=== PATIENT | male | born 1955 | race Caucasian/White ===

== ENCOUNTER 2024-06-08 10:11 | Outpatient (CLI) | payer BC, MEDICARE, SELFPAY ==
--- OUTSIDE RECORDS SUMMARY | 2024-06-08 11:36 | XMS_ITS | Continuity of Care Document ---
Author Organization [facility] Address [address] [place] [address] [place] [address] Phone Care Team Providers Care Echo Vasc Tech Name Role Phone Hieu Braden MD Unavailable Unavailable Advance Directives Directive Yes / No Effective Date File Name No Information Encounters Encounter Description Practice Location Reason(s) For Visit Diagnoses Date Provider Providers Copied on Encounter [facility], [address], [place], [place], [id number], [place] tel:[phone] [place] Professional No Information [address]. [address] [facility], [facility], [place], [place], [id number], [place]. tel:[phone] Family History Family Member Type Diagnosis Age At Onset No Information Payers Payer name Insurance type Covered libertarian ID Authoriza tion(s) No Information Social History Type Description Quantity Date Captured Comments Sex Male Smoking Status No Information Chief Complaint And Reason For Visit No Information Reason For Referral Reason For Referral No Information History Of Present Illness Encounter Date Complaint History Of Prese nt Illness No Information Functional Status Date Functional Assessmen t No Information Instructions Date Instruction Additional Infor mation No Information Assessments Type Assessment Date No Information Patient Care Teams Name Effective Dates (start - stop) Status Members No Information
--- OUTSIDE RECORDS SUMMARY | 2024-06-08 11:36 | XMS_ITS | Clinical Summary ---
Author Organization [facility] Address [address] [place] [address] Phone Care Team Providers Care Financial Reporting Accountant Name Role Phone SALMA ESCOBAR MD Primary Care Provider [phone] Reason for Visit and Chief Complaint ECHOCARDIOGRAM Problems Includes: Problems addressed during this encounter and other active Problems All Visits Onset Date Resolved Date Provider Condition S tatus Asthma 12/20/2022 RAJANI Stratton PA-C Active Last Documented On 12/20/2022 8:26AM ; [facility] Note: Sees allergy/immunology in [place] Bursitis Olecranon Left 05/30/2022 SALMA ESCOBAR MD Active Last Documented On 05/30/2022 8:55AM ; [facility] Note: Unchanged Alcohol Dependence in Remission 01/09/2021 LUIS MANUEL ODELL DO Active Last Documented On 9:01AM ; [facility] Allergic Rhinitis 01/09/2021 LUIS MANUEL ODELL DO Active Last Documented On 9:01AM ; [facility] Gerd 10/07/2020 SALMA ESCOBAR MD Act bruno Last Documented On 9:20AM ; [facility] Note: Unchanged Neuropathy 10/07/2020 SALMA ESCOBAR MD Act bruno Last Documented On 9:20AM ; [facility] Note: Unchanged Plan of Treatment No Plan of Treatment Recorded Assessments Includes: Assessments from this encounter No Assessments Recorded Medical Equipment - Implanted Devices Includes: Current Devices No Medical Equipment Recorded Medications Includes: Medications discussed during this encounter and other current Medications Current Medications (continue as prescribed) Cyanocobalamin 1000 MCG/ML I njection Solution 06/26/2023 Provider: SALMA Mi Diagnosis: ONE B12 INJECTION WEEKLY FOR 3 MONTHS Last Documented On 06/26/2023 2:47PM By KAVIN POWELL ; [facility] BD Luer-Porsha Syringe 25G X 5/ 8 3 ML Miscellaneous 06/26/2023 Provider: SALMA Mi Diagnosis: USE ONE SYRINGE WEEKLY FOR B12 INJ Last Documented On 06/26/2023 2:47PM By KAVIN POWELL ; [facility] QUEtiapine Fumarate 200 MG Oral Tablet 06/12/2023 Pr ovider: SALMA ESCOBAR MD Diagnosis: TAKE 1/2 TO 1 TABLET BY MOUTH EVERY DAY AT [place] Last Documented On 4 6:07PM By SALMA ESCOBAR MD ; [facility] DULoxetine HCl 60 MG Oral Ca psule Delayed Release Particles 06/12/2023 Provider: SALMA Mi Diagnosis: TAKE 1 CAPSULE BY MOUTH TWICE A DAY Last Documented On 4 6:07PM By SALMA ESCOBAR MD ; [facility] Pregabalin 100 MG Oral Capsule 06/11/2023 Provider: SALMA ESCOBAR MD Diagnosis: TAKE 1 CAPSULE BY MOUTH TWICE A DAY Last Documented On 10:52PM By SALMA ESCOBAR MD ; [facility] Omeprazole 40 MG Oral Capsul e Delayed Release 05/16/2023 Provider: CYRUS STARKEY SUPERINTENDENT QUARRY- FPA, DISTRICT MANAGER PRIMARY CARE SALES-BC Diagnosis: TAKE 1 CAPSULE BY MOUTH EVERY DAY Last Documented On 05/16/2023 1:48PM By Carol POWELL ; [facility] Trelegy Ellipta 100-62.5-25 MCG/ACT Inhalation Aerosol Powder Breath Activated 12/19/2022 Provider: Diagnosis: From allergy, [facility] in [place] Last Documented On 12/19/2022 3:51PM By KAVIN POWELL ; [facility] Albuterol Sulfate HFA 108 (9 0 Base) MCG/ACT Inhalation Aerosol Solution 05/28/2022 Provider: Diagnosis: Last Documented On 05/30/2022 8:26AM By Carol POWELL ; [facility] Fluticasone Propionate 50 MC G/ACT Nasal Suspension 02/19/2021 Provider: SALMA Mi Diagnosis: USE 2 SPRAYS IN EACH NOSTRIL EVERY DAY Last Documented On 02/19/2021 6:22PM By Carol POWELL ; [facility] Medications Administered Includes: Administered Medications from this encounter No Administered Medications Recorded Results Includes: Results discussed during this encounter No Results Recorded For Specified Dates History of Present Illness Includes: History of Present Illness from this encounter No History of Present Illness Recorded Social History No Social History Recorded - Smoking Status Unknown Procedures and Surgical History Includes: Procedures from this encounter Procedures Code Diagnosis Performing Provider Service Location Service Date ECHOCARDIOGRAPHY -TRANSTHORAC W/ DOPPLER (Professional Comp., DISTINCT PROCEDURAL SERVICE DIFFERENT SITE) 21529 Abnormal electrocardiogram [ECG] [EKG], Shortness of breath TABBY TOUSSAINT MD [facility] OP HRT 07/18/2023 Last Documented On 4 1:08PM ; [facility] Medical History Includes: Medical History addressed during this encounter No Medical History Recorded Family History Includes: Family History addressed during this encounter No Family History Recorded Review of Systems Includes: Review of Systems from this encounter No Review of Systems Recorded Mental Status Includes: Mental Status from this encounter No Mental Status Recorded Functional Status Includes: Functional Status from this encounter No Functional Status Recorded Physical Exam Includes: Physical Exam from this encounter No Physical Exam Recorded Allergies Includes: Active Allergies No Known Allergies Encounters Encounter Provider Location Date Check-In Time Check-Out Time Diagnosis ECHOCARDIOGRAM YOUKARLA TOUSSAINT MD [facility] OP H[facility] 07/18/19 24 1:00PM 11:51AM Insurance Includes: Active Insurance Policies Plan Name Member ID Group # Subscriber Relationship Effect bruno Dates 1 - [facility] [id number] EMMA Dickson Clinical Notes Includes: Clinical Notes from this encounter No Clinical Notes Recorded
--- OUTSIDE RECORDS SUMMARY | 2024-06-08 11:36 | XMS_ITS | Clinical Summary ---
Author Organization [facility] Address [address] [place] [address] Phone Care Team Providers Care Abalone Fisherman Name Role Phone SALMA ESCOBAR MD Primary Care Provider [phone] Reason for Visit and Chief Complaint LEXISCAN CARDIOLITE Problems Includes: Problems addressed during this encounter and other active Problems All Visits Onset Date Resolved Date Provider Condition S tatus Asthma 12/20/2022 RAJANI Stratton PA-C Active Last Documented On 12/20/2022 8:26AM ; [facility] Note: Sees allergy/immunology in [place] Bursitis Olecranon Left 05/30/2022 SALMA ESCOBAR MD Active Last Documented On 05/30/2022 8:55AM ; [facility] Note: Unchanged Alcohol Dependence in Remission 01/09/2021 LUIS MANUEL ODELL DO Active Last Documented On 9:01AM ; [facility] Allergic Rhinitis 01/09/2021 LUIS MANUEL ODELL DO Active Last Documented On 9:01AM ; [facility] Gerd 10/07/2020 SALMA ESCOBAR MD Act bruno Last Documented On 9:20AM ; [facility] Note: Unchanged Neuropathy 10/07/2020 SALMA ESCOBAR MD Act bruno Last Documented On 9:20AM ; [facility] Note: Unchanged Plan of Treatment No Plan [...] On 06/26/2023 2:47PM By KAVIN POWELL ; [facility] BD Luer-Porsha Syringe 25G X 5/ 8 3 ML Miscellaneous 06/26/2023 Provider: SALMA Mi Diagnosis: USE ONE SYRINGE WEEKLY FOR B12 INJ Last Documented On 06/26/2023 2:47PM By KAVIN POWELL ; [facility] QUEtiapine Fumarate 200 MG Oral Tablet 06/12/2023 Pr ovider: SALMA ESCOBAR MD Diagnosis: TAKE 1/2 TO 1 TABLET BY MOUTH EVERY DAY AT [place] Last Documented On 4 6:07PM By SALMA ESCOBAR MD ; [facility] DULoxetine HCl 60 MG Oral Ca psule Delayed Release Particles 06/12/2023 Provider: SALMA Mi Diagnosis: TAKE 1 CAPSULE BY MOUTH TWICE A DAY Last Documented On 4 6:07PM By SALMA ESCOBAR MD ; [facility] Pregabalin 100 MG Oral Capsule 06/11/2023 Provider: SALMA ESCOBAR MD Diagnosis: TAKE 1 CAPSULE BY MOUTH TWICE A DAY Last Documented On 4 10:52PM By SALMA ESCOBAR MD ; [facility] Omeprazole 40 MG Oral Capsul e Delayed Release 05/16/2023 Provider: CYRUS STARKEY ROULETTE DEALER- FPA, COATING MIXER SUPERVISOR-BC Diagnosis: TAKE 1 CAPSULE BY MOUTH EVERY DAY Last Documented On 05/16/2023 1:48PM By Carol POWELL ; [facility] Trelegy Ellipta 100-62.5-25 MCG/ACT Inhalation Aerosol Powder Breath Activated 12/19/2022 Provider: Diagnosis: From allergy, [facility] in [place] Last Documented On 12/19/2022 3:51PM By KAVIN POWELL ; [facility] Albuterol Sulfate HFA 108 (9 0 Base) MCG/ACT Inhalation Aerosol Solution 05/28/2022 Provider: Diagnosis: Last Documented On 05/30/2022 8:26AM By Carol POWELL ; [facility] Fluticasone Propionate 50 MC G/ACT Nasal Suspension 02/19/2021 Provider: SALMA Mi Diagnosis: USE 2 SPRAYS IN EACH NOSTRIL EVERY DAY Last Documented On 02/19/2021 6:22PM By Carol POWELL ; [facility] Medications Administered Includes: Administered Medications from this [...] Diagnosis Performing Provider Service Location Service Date MYOCARDIAL PERFUSIOIN IMAGING- TOMOGRAPHIC MULT STUDIES (Professional Comp.) [address] Abnormal electrocardiogram [ECG] [EKG], Shortness of breath YOUKARLA TOUSSAINT MD [facility] OP HRT 07/18/2023 Last Documented On 4 1:08PM ; [facility] CARDIOVASCULAR STRESS [place] [id number] Abnormal electrocardiogram [ECG] [EKG], Shortness of breath YOUKARLA TOUSSAINT MD [facility] OP HRT 07/18/2023 Last Documented On 4 1:08PM ; [facility] CARDIO STRESS TEST INTERP ONLY [id number] Abnormal electrocardiogram [ECG] [EKG], Shortness of breath YOUSEKraig TOUSSAINT MD [facility] OP HRT 07/18/2023 Last Documented On 4 1:08PM ; [facility] Medical History Includes: Medical History addressed during [...] Location Date Check-In Time Check-Out Time Diagnosis LEXISCAN CARDIOLITE YOUKARLA TOUSSAINT MD [facility] OP HRT 07/18/19 24 10:49AM 1:22PM Insurance Includes: Active Insurance Policies Plan Name Member ID Group # Subscriber Relationship Effect bruno Dates 1 - [facility] [id number] EMMA ROBERT Self Clinical Notes Includes: Clinical Notes from this encounter No Clinical Notes Recorded
--- OUTSIDE RECORDS SUMMARY | 2024-06-08 11:36 | XMS_ITS | Encounter Summary ---
Author Organization [facility] Address [address] [place] [address] Care Team Providers Care Brake Lining Finisher Name Role Phone Homero Palm MD Primary Care Provider [phone] Juliet Paula MD Primary Care Provider [phone] Reason for Visit * Reason Onset Date Comments Hospital Follow Up 07/13/2020 Encounter Details Date Type Department Care Team (Late st Contact Info) Description 07/13/2020 Hospital Follow-up Call [facility] [address] [place] [address] Marina Muse, [facility] Hospital Follow Up Social History Tobacco Use Types Packs/Day Years Used Date Smoking Tobacco: Never Smokeless Tobacco: Never Alcohol Use Standard Drinks/Week Comments Yes 0 (1 standard drink = 0.6 oz pur e alcohol) 5 drinks per week Sex and Gender Information Value Date Recorded Sex Assigned at Male 04/01/2024 5:58 AM CAR RENTAL SALES ASSISTANT Legal Sex Male 11:44 AM CDT Gender Identity Not on file Sexual Orientation Not on file Occupation Industry Job Start Date Job End Date Not on file Not on file Not on file Not on file COVID-19 Exposure Response Date Recorded In the last month, have you been in contact with someone who was confirmed or suspected to have Coronavirus / COVID-19? No / Unsure 07/08/2020 11:04 AM CDT documented as of this encounter Functional Status * RETIRED Are you deaf or do you have serious difficulty hearing Answer Date of Assessment Author Status No 07/08/2020 12:45 PM CDT Acti ve * RETIRED Are you blind or do you have serious difficulty seeing, even when wearing glasses? Answer Date of Assessment Author Status No 07/08/2020 12:45 PM CDT Acti ve * Do you have serious difficulty walking or climbing stairs? Answer Date of Assessment Author Status Yes 07/08/2020 12:45 PM CDT Mikala Butcher R N Active * Do you have difficulty dressing or bathing? Answer Date of Assessment Author Status No 07/08/2020 12:45 PM CDT Mikala Butcher R N Active * Because of a physical, mental, or emotional condition, do you have difficulty doing errands alone such as visiting a doctor's office or shopping? Answer Date of Assessment Author Status No 07/08/2020 12:45 PM CDT Mikala Butcher R N Active documented as of this encounter Mental Status * Because of a physical, mental, or emotional condition, do you have serious difficulty concentrating, remembering, or making decisions? Answer Entry Date Author Status No 07/08/2020 12:45 PM CDT Mikala Buthcer R N Active documented in this encounter Plan of Treatment Not on file documented as of this encounter Visit Diagnoses Not on filedocumented in this encounter Care Teams Brake Lining Finisher Relationship Specialty Start Date End Date Homero Palm MD [address] [place] [phone] PCP - General INTERNAL MEDICINE 07/08/20 03/16/21 Juliet Paula MD [address] [place] [phone] PCP - General FAMILY PRACTICE 03/17/21 documented as of this encounter
--- OUTSIDE RECORDS SUMMARY | 2024-06-08 11:36 | XMS_ITS | Clinical Summary ---
Author Organization [facility] Address [address] [place] [address] Phone Care Team Providers Care Cardiovascular Surgeon Name Role Phone Juliet Corrales MD Primary Care Provider [phone] Allergies No known active allergies Medications naltrexone (VIVITROL) 380 MG Recon Suspension 380 mg by Intramuscular route once. EVERY 28 DAYS Active pregabalin (LYRICA) 100 MG Capsule Take 100 mg by mouth 2 times daily. Active cloNIDine (CATAPRES) 0.1 MG Tablet Take 0.1 mg by mouth nightly. Active DULoxetine (CYMBALTA) [address] Particles Take 60 mg by mouth 2 times daily. Active fluticasone (FLONASE) 50 MCG/ACT Suspension 1-2 Sprays by Nasal route daily. Use in each nostril as directed. Active ibuprofen (MOTRIN) 600 MG Tablet Take 600 mg by mouth every 8 hours as needed. Active QUEtiapine (SEROquel) 200 MG Tablet Take 200 mg by mouth nightly. Active hydrOXYzine (ATARAX) 25 MG Tablet Take 25 mg by mouth every 6 hours as needed. Active Sulfamethoxazo le-Trimethopri m (SULFAMETHOXAZ OLE-TMP DS PO) Take by mouth 2 times daily. Active cephALEXin (KEFLEX) 500 MG Capsule Take 500 mg by mouth 2 times daily. Active omeprazole (PriLOSEC) 40 MG CAPSULE DELAYED RELEASE Take by mouth every morning. Active Active Problems No known active problems Family History Medical History Relation Name Comments Cancer Father LUNG AND BRAIN Osteoarthritis Father Cancer Mother BREAST Hypertension Mother Relation Name Status Comments Father Mother Alive Social History Tobacco Use Types Packs/Day Years Used Date Smoking Tobacco: Never Smokeless Tobacco: Former Chew Quit: 02/27/1994 Sex and Gender Information Value Date Recorded Sex Assigned at Not on file Legal Sex Male 11:32 PM CDT Gender Identity Not on file Sexual Orientation Not on file Last Filed Vital Signs Vital Sign Reading Time Taken Comments Blood Pressure 133/80 04/10/2021 10:02 AM ACUTE CARE NURSE PRACTITIONER Pulse 60 04/10/2021 10:02 AM ACUTE CARE NURSE PRACTITIONER Temperature 36 C (96.8 F) 04/10/2021 10:02 AM ACUTE CARE NURSE PRACTITIONER Respiratory Rate 16 04/10/2021 10:02 AM ACUTE CARE NURSE PRACTITIONER Oxygen Saturation 93% 04/10/2021 10:02 AM ACUTE CARE NURSE PRACTITIONER Inhaled Oxygen Concentration - - Weight 98 kg (216 lb) 04/10/2021 8:35 AM ACUTE CARE NURSE PRACTITIONER Height 182.9 cm (6') 04/10/2021 8:35 AM ACUTE CARE NURSE PRACTITIONER Body Mass Index 29.29 04/10/2021 8:35 AM ACUTE CARE NURSE PRACTITIONER Plan of Treatment Health Maintenance Due Date Last Done Comments Hepatitis C Virus (HCV) Screening 1955 Colonoscopy 2002 Colorectal Cancer Screening 2002 Cologuard 08/05/2007 Immunochemical Fecal Occult Blood 08/05/2007 Pneumococcal Immunization (50+ years) (1 of 1 - PCV) 08/05/2007 Influenza Immunization (#1) 10/13/202311/12, 11/22/2020, 12/14/2019, Additional history exists SARS-COV-2 Immunization ( season) 2023 10/19/2020, 04/22/2020, 03/23/2020 Respiratory Syncytial Virus (RSV) Immunization (Adult) (1 - 1-dose 75+ series) 2032 DTaP/Tdap/Td Immunization Discontinued 10/25/2019, TdaP Immunization Completed 10/25/2019, 09/23/2009 Zoster Immunization Completed 06/29/2020, 0 Hepatitis B Immunization Aged Out No longer eligible based on patient's age to complete this topic Meningococcal Immunization (ACWY) Aged Out No longer eligible based on patient's age to complete this topic Rotavirus Immunization Aged Out No lo nger eligible based on patient's age to complete this topic Medical Devices Implanted Type Area Ems Driver Device Identifier Shelf Expiration Date Model / Serial / Lot Tecnis Simplicity Enhance Iol Delivery System Implanted:Qty: 1 on 03/06/2021 by Luis Antonio Gil MD at [facility] Right: Eye 06/11/2023 [id number] / [id number] / [id number] Tecnis Eyhance Iol With Simplicity Delivery System Implanted:Qty: 1 on 04/10/2021 by Luis Antonio Gil MD at [facility] Left: Eye 06/11/2023 [id number] / [id number] / [id number] Insurance Care Teams Cardiovascular Surgeon Relationship Specialty Start Date End Date Juliet Corrales MD [address] [place] [id number] PCP - General 03/03/21
--- OUTSIDE RECORDS SUMMARY | 2024-06-08 11:36 | XMS_ITS | Encounter Summary ---
Author Organization [facility] Address [address] [facility] [place] [place] [address] Phone Care Team Providers Care Food Tray Assembler Name Role Phone Juliet Corrales MD Primary Care Provider [phone] Encounter Details Date Type Department Care Team (Late st Contact Info) Description 03/31/2021 Transcribe Orders [facility] Preop/Pacu II [address] [place] [address] Wade Conteh MD [address] [place] [address] Pre-op testing (Primary Dx) Social History Tobacco Use Types Packs/Day Years Used Date Smoking Tobacco: Never Smokeless Tobacco: Former Chew Quit: 02/27/1994 Sex and Gender Information Value Date Recorded Sex Assigned at Not on file Legal Sex Male 11:32 PM CDT Gender Identity Not on file Sexual Orientation Not on file COVID-19 Exposure Response Date Recorded In the last month, have you been in contact with someone who was confirmed or suspected to have Coronavirus / COVID-19? No / Unsure 03/31/2021 9:59 AM EMBOSSING MACHINE OPERATOR HELPER documented as of this encounter Plan of Treatment Not on file documented as of this encounter Results * SARS-COV-2 BY MOLECULAR (04/07/2021 11:53 AM EMBOSSING MACHINE OPERATOR HELPER) SARSCOV2 NOT DETECTED (Referen ce Range for this test is Not Detected ) [facility] THERMOFISHER FAST DX 04/08/2021 8:59 AM EMBOSSING MACHINE OPERATOR HELPER [facility] Comment:This test was perfor med by a RT-PCR method. Other NASAL STRUCTURE / Unknown Non-Phlebotomy Collection / Unknown 04/07/2021 11:53 AM EMBOSSING MACHINE OPERATOR HELPER 04/07/2021 1:54 PM EMBOSSING MACHINE OPERATOR HELPER Narrative [facility] - 04/08/2021 8:59 AM EMBOSSING MACHINE OPERATOR HELPER Authorized Fact Sheets about this test for providers and patients are available at: https://www.fda.gov/medical-devices/xjcusacdj-hwtwcbrzbu-zpaeqts-devices/emergen -us e-authorizations us Wade Conteh MD MICROBIOLOGY - GENERAL ORDERA BLES Final Result [facility] [address] [place] [address], documented in this encounter Visit Diagnoses Diagnosis Pre-op testing- Primary Preoperative examination, unspecified documented in this encounter Care Teams Food Tray Assembler Relationship Specialty Start Date End Date Juliet Corrales MD [address] [place] [id number] PCP - General 03/03/21 documented as of this encounter
--- OUTSIDE RECORDS SUMMARY | 2024-06-08 11:36 | XMS_ITS | Clinical Summary ---
Author Organization [facility] Address [address] [place] [address] Care Team Providers Care Satellite Dish Technician Name Role Phone Juliet Paula MD Primary Care Provider [phone] Allergies Active Allergy Reactions Criticality Noted Date Comments Bee Pollen Cough Low 07/08/2020 Dust Mite Extract Cough 07/08/2020 Grass Cough 07/08/2020 Molds & Smuts Cough 07/08/2020 Pollen Extract Cough 07/08/2020 Titanium Swelling 07/08/2020 Pt had titanium plate and screws in left ankle, and it caused swelling, redness, itching, burning, and rash. Medications DULoxetine 60 MG capsule Take 1 capsule (60 mg total) by mouth 2 (two) times daily. Active fluticasone propionate 50 MCG/ACT nasal spray 1 spray by Nasal route daily. Active pregabalin (LYRICA) 100 MG capsule Take 1 capsule (100 mg total) by mouth 2 (two) times daily. 06/11/2023 Active QUEtiapine (SEROQUEL) 200 MG tablet Take 1 tablet (200 mg total) by mouth nightly at bedtime. 06/12/2023 Active omeprazole (PRILOSEC) 40 MG capsule Take 1 capsule (40 mg total) by mouth every morning. Active Fluticasone-Ume clidin-Vilant (TRELEGY ELLIPTA) 100-62.5-25 MCG/ACT AEROSOL POWDER, BREATH ACTIVATED Inhale 1 puff into the lungs daily. 11/24/2023 Active EPINEPHrine (EPIPEN 2-LISA) 0.3 MG/0.3ML injection Inject 0.3 mLs (0.3 mg total) into the muscle as needed. Active cyanocobalamin (B-12) 1000 MCG/ML injection Inject 1 mL (1,000 mcg total) into the muscle once a week. Active albuterol sulfate HFA 108 (90 Base) MCG/ACT inhaler Inhale 2 puffs into the lungs every 4 (four) hours as needed. Active cetirizine (ZYRTEC) 10 MG tablet Take 1 tablet (10 mg total) by mouth daily. Active Active Problems Problem Noted Date Diagnosed Date S/P right colectomy 04/01/2024 Perforated appendicitis 12/22/2023 Closed fracture of left tibia and fibula 021 Encounters Date Type Department Care Team Description 04/01/2024 7:30 AM TOOL DESIGNER APPRENTICE - 04/01/2024 11:35 AM [facility] Surgery [facility] [place] [address] [place] [address] Arvin Barrett Sr., MD SINGLE SITE LAPAROSCOPIC RIGHT COLECTOMY 04/01/2024 7:27 AM [facility] Anesthesia Event [facility] OR [address] [place] [address] Megan Maldonado MD,PHD Monalisa Ovalle RN 04/01/2024 5:58 AM TOOL DESIGNER APPRENTICE - 04/02/2024 11:53 AM [facility] Hospital Encounter [facility] Surgical [address] [place] [address] Arvin Barrett Sr., MD Discharge Disposition: Home or Self Care (Routine Discharge) 04/01/2024 Travel 03/26/2024 Travel from Last 3 Months Family History Medical History Relation Comments No Known Problems Brother No Known Problems Daughter Cancer Father Cancer Mother Diabetes Mother No Known Problems Sister No Known Problems Son Relation Status Comments Brother Daughter Father Mother Alive Sister Son Social History Tobacco Use Types Packs/Day Years Used Date Smoking Tobacco: Never Smokeless Tobacco: Never Alcohol Use Standard Drinks/Week Comments Not Currently 0 (1 standard drink = 0.6 oz pur e alcohol) [facility] Utilities Answer Date Recorded In the past 12 months has e [place], gas, oil, or water company threatened to shut off services in your home? No 04/01/2024 Humiliation, Afraid, Rape, and Kick questionnair e Answer Date Recorded Within the last year, have y ou been afraid of your partner or ex-partner? No 04/01/2024 Within the last year, have y ou been humiliated or emotionally abused in other ways by your partner or ex-partner? No Within the last year, have y ou been kicked, hit, slapped, or otherwise physically hurt by your partner or ex-partner? No 04/01/2024 Within the last year, have y ou been raped or forced to have any kind of sexual activity by your partner or ex-partner? No 04/01/2024 AUDIT-C Answer Date Recorded Q1: How often do you have a drink containing alc ohol? Monthly or less 04/01/2024 Q2: How many drinks containi ng alcohol do you have on a typical day when you are drinking? 1 or 2 04/01/2024 Q3: How often do you have si x or more drinks on one occasion? Never 04/01/2024 Overall Financial Resource Strain (CARDIA) Answe r Date Recorded How hard is it for you to pa y for the very basics like food, housing, medical care, and heating? Not hard at all 04/01/2024 Hunger Vital Sign Answer Date Recorded Within the past 12 months, y ou worried that your food would run out before you got the money to buy more. Never true 04/01/19 25 Within the past 12 months, t he food you bought just didn't last and you didn't have money to get more. Never true 04/01/2024 PRAPARE - Transportation Answer Date Re corded In the past 12 months, has l ack of transportation kept you from medical appointments or from getting medications? No 03/14 In the past 12 months, has l ack of transportation kept you from meetings, work, or from getting things needed for daily living? No 04/01/2024 Housing Stability Vital Sign Answer Carlos e Recorded In the last 12 months, was t here a time when you were not able to pay the mortgage or rent on time? No 04/01/2024 In the past 12 months, how m any times have you moved where you were living? 0 04/01/2024 At any time in the past 12 m [facility], were you homeless or living in a usp (including now)? No 04/01/2024 Sex and Gender Information Value Date Recorded Sex Assigned at Male 04/01/2024 5:58 AM TOOL DESIGNER APPRENTICE Legal Sex Male 11:44 AM CDT Gender Identity Not on file Sexual Orientation Not on file Occupation Industry Job Start Date Job End Date Not on file Not on file Not on file Not on file Last Filed Vital Signs Vital Sign Reading Time Taken Comments Blood Pressure 136/78 04/02/2024 8:27 AM TOOL DESIGNER APPRENTICE Pulse 73 04/02/2024 8:27 AM TOOL DESIGNER APPRENTICE Temperature 36.5 C (97.7 F) 04/02/2024 3:10 AM TOOL DESIGNER APPRENTICE Respiratory Rate 18 04/02/2024 3:10 AM TOOL DESIGNER APPRENTICE Oxygen Saturation 94% 04/02/2024 8:27 AM TOOL DESIGNER APPRENTICE Inhaled Oxygen Concentration - - Weight 98.9 kg (218 lb) 04/01/2024 12:48 PM TOOL DESIGNER APPRENTICE Height 182.9 cm (6') 04/01/2024 12:48 PM TOOL DESIGNER APPRENTICE Body Mass Index 29.57 04/01/2024 12:48 PM TOOL DESIGNER APPRENTICE Plan of Treatment Health Maintenance Due Date Last Done Comments Colorectal Cancer Screening Colonoscopy (10 Years) 1955 Hepatitis C 08/05/1975 Annual Medicare Wellness Visit 2022 COVID-19 Vaccine ( - 2023-2 5 season) 2023 10/19/2020, 04/22/2020, 03/23/2020 DTaP, Tdap and Td Vaccines ( 3 - Td or Tdap) 10/24/2029 10/25/2019, 09/23/2009 RSV Immunization or 60+ Years (1 - 1-dose 75+ series) 2032 Zoster Vaccines Completed 06/29/2020, 01/24/2020 Pneumococcal Vaccine: 50+ Years Completed 08/23/2022 Meningococcal B Vaccine Aged Out No l onger eligible based on patient's age to complete this topic Meningococcal Vaccine Aged Out No isaías lester eligible based on patient's age to complete this topic RSV Immunizations Under 20 Months Aged Out No longer eligible b ased on patient's age to complete this topic Medical Devices Implanted Type [facility] Device Identifier Shelf Expiration Date Model / Serial / Lot Screw Synthes 5.0 Ti Locking W/T25 Star 36mm - [id number] Implanted:Qty: 1 on 07/09/2020 by Thai Suero MD at [facility] Left: Tibia SYNTHES 02/10/2029 04.005.526S / / [id number] Nail Synthes 10mm Ti Amalia Tibial -Ex/375mm - [id number] Implanted:Qty: 1 on 07/09/2020 by Thai Suero MD at [facility] Left: [employer] 06/11/2021 04.004.455S / / [id number] Cap End Synthes Ti Cannulated Nail 10mm - [id number] Implanted:Qty: 1 on 07/09/2020 by Thai Suero MD at [facility] Left: [employer]ia [employer] 04.004.010S / / Screw Synthes 5.0 Ti Locking W/T25 Star 36mm - [id number] Implanted:Qty: 1 on 07/09/2020 by Thai Suero MD at [facility] Left: Tibia [employer] 04/10/2030 04.005.526S / / [id number] Screw Synthes 5.0 Ti Locking W/T25 Star 36mm - [id number] Implanted:Qty: 1 on 07/09/2020 by Thai Suero MD at [facility] Left: [employer]ia [employer] 01/10/2029 04.005.526S / / [id number] Screw Bone 5mm 4.3mm 40mm Titanium T25 Full Thread Self Tap Lock Stardrive Blunt Tip Sterile Light Green Expert Cannulated Nail System - [id number] Implanted:Qty: 1 on 07/09/2020 by Thai Suero MD at [facility] Left: [employer]ia [employer] 04/10/2030 04.005.530S / / [id number] Explanted Type [facility] Carrier Device Identifier Shelf Expiration Date Model / Serial / Lot 2.5mm Reaming James With Ball Tip/950mm Explanted:Qty: 1 on 07/09/2020 at [facility] Left: Tibia [employer] 06/10/2029 351.706S / / [id number] 3.2mm Guide Pin Explanted:Qty: 2 on 07/09/2020 at [facility] Left: [employer]ia [employer] 357.399 / / Drill Bit Synthes 4.2mm Qc Three-Fluted 330mm/100mm Calibration - [id number] Explanted:Qty: 1 on 07/09/2020 at [facility] Left: Tibia [employer]ES 03.010.061 / / Drill Bit Synthes 4.2mm 3 Fluted 145mm Qc - [id number] Explanted:Qty: 1 on 07/09/2020 at [facility] Left: Tibia [employer] 03.010.104 / / 2.5mm Reaming James Wtih Ball Tip/950mm Explanted:Qty: 1 on 07/09/2020 at [facility] Left: [employer]ia [employer] 06/10/2029 351.706S / / [id number] Sleeve Prtc 12mm Suprapatellar Strl - [id number] Explanted:Qty: 1 on 07/09/2020 at [facility] Left: Tibia [employer]ES 05/11/2022 03.010.437 S / / [id number] Screw Synthes 5.0 Ti Locking W/T25 Star 38mm - [id number] Explanted:Qty: 1 on 07/09/2020 at [facility] Left: Tibia [employer]ES 12/11/2030 04.005.528 S / / [id number] Description:Changed size Procedures Procedure Name Priority Date/Time Associated Diagnosis Comments CBC W/DIFF AUTOMATED Routine 04/02/2024 4:36 AM TOOL DESIGNER APPRENTICE BASIC METABOLIC PANEL Routine 04/02/2024 4:36 AM TOOL DESIGNER APPRENTICE CBC W/DIFF AUTOMATED TIMED 04/01/2024 7:28 PM TOOL DESIGNER APPRENTICE BASIC METABOLIC PANEL TIMED 04/01/2024 7:28 PM TOOL DESIGNER APPRENTICE MA AN PERIPHERAL BLOCK SINGLE-SHOT Routine 04/01/2024 10:39 AM TOOL DESIGNER APPRENTICE LAPAROSCOPIC COLON RESECTION 04/01/2024 7:12 AM TOOL DESIGNER APPRENTICE APPENDICEAL ADENOCARCINOMA Case Notes LITHOTOMY TYPE & SCREEN Routine 04/01/2024 6:34 AM TOOL DESIGNER APPRENTICE COMPREHENSIVE METABOLIC PANEL Routine 04/01/2024 6:34 AM TOOL DESIGNER APPRENTICE CBC W/DIFF AUTOMATED Routine 04/01/2024 6:34 AM TOOL DESIGNER APPRENTICE PATHOLOGY Routine 04/01/2024 12:00 AM TOOL DESIGNER APPRENTICE from Last 3 Months Results * (ABNORMAL) BASIC METABOLIC PANEL (04/02/2024 4:36 AM TOOL DESIGNER APPRENTICE) Only the most recent of2 resultswithin the time period is included. SODIUM S/P/B 138 136 - 145 MMOL/L 04/02/2024 5:44 AM TOOL DESIGNER APPRENTICE [facility] POTASSIUM S/P/B 4.4 3.5 - 5.1 MMOL/L 04/02/2024 5:44 AM [facility] Comment:MILD HEMOLYSIS, RESU LT MAY BE AFFECTED. CHLORIDE S/P/B 107 97 - 115 MMOL/L 04/02/2024 5:44 AM [facility] CO2 25.5 21.0 - 32.0 MMOL/L 04/02/2024 5:44 AM [facility] GLUCOSE 164(H) 74 - 106 MG/DL 04/02/2024 5:44 AM [facility] BUN 18 7 - 18 MG/DL 04/02/2024 5:44 AM [facility] CREATININE S/P/B 1.12 0.70 - 1.30 MG/DL 04/02/2024 5:44 AM [facility] CALCIUM S/P/B 8.9 8.5 - 10.1 MG/DL 04/02/2024 5:44 AM [facility] ANION GAP 5.5 2.0 - 10.0 MMOL/L 04/02/2024 5:44 AM [facility] OSMOLALITY (CALC) 292 MOSM/KG 025 5:44 AM [facility] Comment:REFERENCE RANGE NOT ESTABLISHED GFR ESTIMATE 72(L) >90 ML/MIN/1. 73 M2 04/02/2024 5:44 AM TOOL DESIGNER APPRENTICE [facility] GFR NOTES GFR REFERENCE S: 04/02/2024 5:44 AM TOOL DESIGNER APPRENTICE [facility] Comment: THE ESTIMATED GFR IS CALCULATED USING THE 2020 CKD-EPI EQUATION. THE FOLLOWING CATEGORIES FOR GRADING RENAL FUNCTION ARE RECOMMENDED BY THE INTERNATIONAL SOCIETY OF NEPHROLOGY (KDIGO 2012 CLINICAL PRACTICE GUIDELINE). G1,NORMAL OR HIGH: >89 ml/min/1.73 m2 G2,MILDLY DECREASED: 60-89 ml/min/1.73 m2 G3A,MILDLY TO MODERATELY DECREASED: 45-59 ml/min/1.73 m2 G3B,MODERATELY TO SEVERELY DECREASED: 30-44 ml/min/1.73 m2 G4,SEVERELY DECREASED: 15-29 ml/min/1.73 m2 G5,KIDNEY FAILURE: <15 ml/min/1.73 m2 04/02/2024 4:36 AM TOOL DESIGNER APPRENTICE us Yves Preston MD LABORATORY Final Result [facility] [address] [place] [address], [phone] * (ABNORMAL) CBC W/DIFF AUTOMATED (04/02/2024 4:36 AM TOOL DESIGNER APPRENTICE) Only the most recent of3 resultswithin the time period is included. WBC 11.25(H) 4.00 - 10.80 x10'3/uL 04/02/2024 5:16 AM TOOL DESIGNER APPRENTICE [facility] RBC 4.49(L) 4.50 - 6.10 x10'6/uL 04/02/2024 5:16 AM TOOL DESIGNER APPRENTICE [facility] HGB 12.8 12.0 - 16.0 G/DL 04/02/2024 5:16 AM TOOL DESIGNER APPRENTICE [facility] HCT 40.5 37.0 - 52.0 % 04/02/2024 5:16 AM TOOL DESIGNER APPRENTICE [facility] MCV 90.2 78.0 - 100.0 FL 04/02/2024 5:16 AM [facility] MCH 28.5 27.0 - 31.0 PG 04/02/2024 5:16 AM [facility] MCHC 31.6(L) 33.0 - 36.0 G/DL 04/02/2024 5:16 AM [facility] RDW 13.6 11.5 - 14.5 % 04/02/2024 5:16 AM [facility] PLT 217 150 - 350 x10'3/uL 04/02/2024 5:16 AM [facility] MPV 10.9(H) 7.4 - 10.4 FL 04/02/2024 5:16 AM [facility] DIFFERENTIAL TYPE AUTOMATED DIFFERENTIAL 04/02/2024 5:16 AM [facility] SEG NEUTROPHILS 79.8 % 5:16 AM [facility] LYMPHOCYTES 14.8 % 04/02/2024 5:16 AM [facility] MONOCYTES 4.7 % 04/02/2024 5:16 AM [facility] EOSINOPHILS 0.1 % 04/02/2024 5:16 AM [facility] BASOPHILS 0.2 % 04/02/2024 5:16 AM [facility] IMMATURE GRANS % 0.4 % 04/02/19 5:16 AM [facility] ABS. NEUTROPHILS 8.97(H) 1.60 - 8.30 x10'3/uL 04/02/2024 5:16 AM [facility] ABS. LYMPHOCYTES 1.67 0.80 - 4.70 x10'3/uL 04/02/2024 5:16 AM [facility] ABS. MONOCYTES 0.53 0.00 - 1.50 x10'3/uL 04/02/2024 5:16 AM [facility] ABS. EOSINOPHILS 0.01 0.00 - 0.40 x10'3/uL 04/02/2024 5:16 AM TOOL DESIGNER APPRENTICE [facility] ABS. BASOPHILS 0.02 0.00 - 0.20 x10'3/uL 04/02/2024 5:16 AM TOOL DESIGNER APPRENTICE [facility] ABS. IMMATURE GRANULOCYTES 0.05(H) 0.00 - 0.03 x10'3/uL 04/02/2024 5:16 AM TOOL DESIGNER APPRENTICE [facility] ABS. NUCLEATED RBC'S 0.00 0.00 - 0.01 x10'3/uL 04/02/2024 5:16 AM TOOL DESIGNER APPRENTICE [facility] NRBC % 0.0 % 04/02/2024 5:16 AM TOOL DESIGNER APPRENTICE [facility] 04/02/2024 4:36 AM TOOL DESIGNER APPRENTICE us Yves Preston MD LABORATORY Final Result Performing Organization Address City/State/[facility] Co de Phone Number [facility] [address] [place], [place] [address], [phone] * MA AN PERIPHERAL BLOCK SINGLE-SHOT (04/01/2024 10:39 AM TOOL DESIGNER APPRENTICE) Narrative Megan Maldonado MD,PHD - 04/01/2024 10:39 AM TOOL DESIGNER APPRENTICE Megan Maldonado MD,PHD 04/01/2024 10:41 AM Peripheral Block Performed by: Megan Maldonado MD,PHD Authorized by: Megan Maldonado MD,PHD Procedure Start: 04/01/2024 10:24 AM Procedure Stop: 04/01/2024 10:29 AM Patient Location: OR Reason for Block: at surgeon's request and post-op pain management patient identified, IV checked, site marked, risks and benefits discussed, consent, monitors and equipment checked, pre-op evaluation and timeout performed Patient Position: Supine Monitoring: Blood pressure, continuous pulse ox and heart rate Prep: Chlorhexidine Draping: Sterile technique maintained Block Type: TAP Laterality: Bilateral Injection Technique: Single-shot Technique: ultrasound guided Local Infiltration: Lidocaine 1% Dose: 3 Needle Type: Sonoplex Needle Gauge: 22 G Needle Length: 10 cm Needle Localization: Ultrasound guidance Needle Insertion Depth: 2 Test Dose: Negative Local Volume: 60 Insertion Attempts: 2 Injection Assessment/ Attestation: Incremental injection, local visualized surrounding nerve on ultrasound, negative aspiration for heme, no apparent complications, paresthesia absent, no paresthesia on injection, well tolerated and ultrasound image saved Paresthesia Pain: None Heart Rate Change: No Transversus abdominus plane block Rectus Sheath approach Patient identified and pertinent chart information reviewed including indications, allergies, and anticoagulation status. Site confirmed. Time out performed. Site prepped with chlorhexidine and sterile technique maintained. High frequency ultrasound probe was placed on L side of the patient's abdomen, and anatomical landmarks were identified on the ultrasound image, including rectus, external oblique, internal oblique, transversus abdominus muscles, peritoneum, hypogastric vessels and bowel. Under real-time ultrasound guidance, the block needle was inserted using the in-plane approach and the needle tip was visualized throughout the procedure. Once the needle tip is appropriately positioned near the in the plane between the rectus muscle and posterior rectus sheath, local anesthetic was injected incrementally in small alloquots after confirming negative aspiration. Low-pressure injection was confirmed using compressed air technique. Local anesthetic spread surrounding the neurovascular bundle was confirmed on real-time US image. Same procedure was repeated on R side. There was no significant pain or paresthesias during the procedure. There were no signs of local anesthetic toxicity. There were no other complications. Megan Maldonado MD,PHD MA ANESTHESIA Final Result * TYPE & SCREEN (04/01/2024 6:34 AM TOOL DESIGNER APPRENTICE) ABO/RH A NEGATIVE 04/01/2024 7:41 AM TOOL DESIGNER APPRENTICE [facility] ANTIBODY SCREEN NEGATIVE 04/01/2024 7:41 AM TOOL DESIGNER APPRENTICE [facility] SAMPLE EXPIRATION 04/04/2024,2 359 04/01/2024 7:03 AM TOOL DESIGNER APPRENTICE [facility] 04/01/2024 6:34 AM TOOL DESIGNER APPRENTICE us Arvin Barrett Sr., MD BLOOD BANK TEST ORDERABL ES Final Result [facility] [address] [place] [address], [id number] * (ABNORMAL) COMPREHENSIVE METABOLIC PANEL (04/01/2024 6:34 AM [facility] Signature SODIUM S/P/B 140 136 - 145 MMOL/L 04/01/2024 7:31 AM [facility] POTASSIUM S/P/B 4.0 3.5 - 5.1 MMOL/L 04/01/2024 7:31 AM [facility] CHLORIDE S/P/B 107 97 - 115 MMOL/L 04/01/2024 7:31 AM [facility] CO2 27.3 21.0 - 32.0 MMOL/L 04/01/2024 7:31 AM [facility] GLUCOSE 121(H) 74 - 106 MG/DL 04/01/2024 7:31 AM [facility] BUN 13 7 - 18 MG/DL 04/01/2024 7:31 AM [facility] CREATININE S/P/B 0.99 0.70 - 1.30 MG/DL 04/01/2024 7:31 AM [facility] CALCIUM S/P/B 9.3 8.5 - 10.1 MG/DL 04/01/2024 7:31 AM [facility] BILIRUBIN TOTAL S/P/B 0.7 0.2 - 1.0 MG/DL 04/01/2024 7:31 AM [facility] ALKALINE PHOSPHATASE S/P/B 95 45 - 115 U/L 04/01/2024 7:31 AM [facility] AST 20 15 - 37 U/L 04/01/2024 7:31 AM [facility] ALT 24 16 - 61 U/L 04/01/2024 7:31 AM [facility] TOTAL PROTEIN S/P/B 7.5 6.4 - 8.2 G/DL 04/01/2024 7:31 AM [facility] ALBUMIN S/P/B 3.7 3.4 - 5.0 G/DL 04/01/2024 7:31 AM TOOL DESIGNER APPRENTICE [facility] ANION GAP 5.7 2.0 - 10.0 MMOL/L 04/01/2024 7:31 AM TOOL DESIGNER APPRENTICE [facility] OSMOLALITY (CALC) 291 MOSM/KG 025 7:31 AM [facility] Comment:REFERENCE RANGE NOT ESTABLISHED GFR ESTIMATE 84(L) >90 ML/MIN/1. 73 M2 04/01/2024 7:31 AM TOOL DESIGNER APPRENTICE [facility] GFR NOTES GFR REFERENCE S: 04/01/2024 7:31 AM [facility] Comment: THE ESTIMATED GFR IS CALCULATED USING THE 2020 CKD-EPI EQUATION. THE FOLLOWING CATEGORIES FOR GRADING RENAL FUNCTION ARE RECOMMENDED BY THE INTERNATIONAL SOCIETY OF NEPHROLOGY (KDIGO 2012 CLINICAL PRACTICE GUIDELINE). G1,NORMAL OR HIGH: >89 ml/min/1.73 m2 G2,MILDLY DECREASED: 60-89 ml/min/1.73 m2 G3A,MILDLY TO MODERATELY DECREASED: 45-59 ml/min/1.73 m2 G3B,MODERATELY TO SEVERELY DECREASED: 30-44 ml/min/1.73 m2 G4,SEVERELY DECREASED: 15-29 ml/min/1.73 m2 G5,KIDNEY FAILURE: <15 ml/min/1.73 m2 04/01/2024 6:34 AM TOOL DESIGNER APPRENTICE us Arvin Barrett Sr., MD LABORATORY Final Re sult [facility] [address] [place] [id number], [id number] * Pathology (04/01/2024 12:00 AM TOOL DESIGNER APPRENTICE) PATHOLOGY [facility] Department of Laboratory Medicine [address] [place] [address] , extension [phone] Pathology Report Surgical Pathology Report Name: EMMA ROBERT Specimen #: [id number] Age: 6 1955 (Age: 68) Location: [facility] Sex: M Procedure Date: 04/01/2024 [facility] #: [id number] Date Received: 04/01/2024 Date Reported: 04/03/2024 Provider: ARVIN PRESTON Source: Colon, right Clinical History: Previous pathology report ( 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 -No evidence of residual appendiceal adenocarcinoma (see comment and prior case [id number]). -No tumor seen in 15 of 15 lymph nodes. -Adipose tissue without evidence of malignancy. -All margins clear. Diagnosis Comment: This patient underwent an appendectomy in December,. Examination of the appendix at the time showed a poorly differentiated invasive adenocarcinoma arising in association with a sessile serrated lesion with high-grade dysplasia. The specimen was reviewed at [facility] ([facility] ). The current right colectomy specimen shows no evidence of residual adenocarcinoma or sessile serrated lesion. The entire appendiceal orifice and tissue surrounding the orifice is examined microscopically. In addition, there is no tumor seen in 15 of 15 regional lymph nodes. Based on the findings in the prior appendectomy specimen ([id number]) and the current specimen, the pathologic stage is as follows: pT4a pN0. Gross Description: Received in formalin, labeled with a patient label and as right colon is a specimen consisting of a 32.8 cm long segment of right colon with an attached 18.7 cm long segment of terminal ileum. There is a moderate amount of adipose tissue attached to the specimen. An appendix is not identified at the ileocecal junction. The specimen is opened to reveal that the lumen contains pederson-brown fecal material. TUMOR The appendiceal orifice contains pink-pederson unremarkable mucosa. A discrete mass lesion is not identified. MARGINS The appendiceal orifice is greater than 10 cm from the proximal margin and greater than 10 cm from the distal margin. It is 9.3 cm from the radial/circumferen tial margin. REGIONAL LYMPH NODES The adipose tissue is dissected for lymph nodes. Multiple nodes are identified. No grossly positive nodes are identified. No matted nodes are identified. No tumor deposits are identified. OTHER The terminal ileum is lined by pink-pederson mucosa that exhibits normal folding with an average wall thickness of 0.2 cm. The colon is lined by pink-pederson mucosa that exhibits normal folding with an average wall thickness of 0.2 cm. The ileocecal valve is unremarkable. There is also a 17.8 x 15.2 x 5.8 cm aggregate of lobulated yellow-pederson adipose tissue found within the container. Sections reveal lobulated yellow-pederson cut surfaces. There are no grossly identifiable masses or lesions. BLOCK SUMMARY Director Sales Support tissue is submitted as follows: 1representative sections of proximal distal [id number] margin3-5 - appendiceal orifice entirely submitted with surrounding mucosa6 - retention representative sections of adipose tissue found within [id number] lymph nodes lymph node bisected, 1 inked black9 - 2 lymph nodes bisected, 1 inked [id number] lymph nodes bisected, 1 inked [id number] lymph nodes bisected, 1 inked blue12 1 lymph node bisected Electronically Signed Out KEYLA MONTAGUE MD [facility] TISSUE COLON STRUCTURE / Unknown 04/01/2024 9:24 AM TOOL DESIGNER APPRENTICE Comment:Right Colectomy, his tory of Appendectomy with Appendocele Carcinoma us Arvin Barrett Sr., MD PATHOLOGY/CYTOLOGY ORDER ANNIE Final Result [facility] [address] [place] [id number], [id number] from Last 3 Months Insurance MEDICARE Advance Directives * Full Code (Latest Code Status on File) Date Activated Date Inactivated Comments 04/01/2024 12:47 PM 04/02/2024 2:03 PM * Full Code Date Activated Date Inactivated Comments 12/24/2023 8:27 AM 12/26/2023 12:38 PM Care Teams Satellite Dish Technician Relationship Specialty Start Date End Date Juliet Paula MD [address] [place] [phone] PCP - General FAMILY PRACTICE 03/17/21
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
--- OUTSIDE RECORDS SUMMARY | 2024-06-08 11:36 | XMS_ITS ---
Care Plan - [facility] Created on: June 08, 2024 JAKOB EMMA L : 1955 Sex: Male Author Organization [facility] Address [address] [place] [address] Phone Care Team Providers Care Staff Mechanical Engineer Name Role Phone SALMA ESCOBAR MD Primary Care Provider [phone]
--- OUTSIDE RECORDS SUMMARY | 2024-06-08 11:36 | XMS_ITS ---
Author Organization [facility] Address [address] [place] [address] Phone Care Team Providers Care Biologist Name Role Phone SALMA ESCOBAR MD Primary Care Provider [phone] Problems Includes: Active, inactive, and resolved Problems All Visits Onset Date Resolved Date Provider Condition S tatus Asthma 12/20/2022 RAJANI Stratton PA-C Active Last Documented On 12/20/2022 8:26AM ; [facility] Note: Sees allergy/immunology in [place] Bursitis Olecranon Left 05/30/2022 SALMA ESCOBAR MD Active Last Documented On 05/30/2022 8:55AM ; [facility] Note: Unchanged Alcohol Dependence in Remission 01/09/2021 LUIS MANUEL ODELL DO Active Last Documented On 1 9:01AM ; [facility] Allergic Rhinitis 01/09/2021 LUIS MANUEL ODELL DO Active Last Documented On 1 9:01AM ; [facility] Gerd 10/07/2020 SALMA ESCOBAR MD Act bruno Last Documented On 1 9:20AM ; [facility] Note: Unchanged Neuropathy 10/07/2020 SALMA ESCOBAR MD Act bruno Last Documented On 1 9:20AM ; [facility] Note: Unchanged Plan of Treatment Findings Encounter Date Ordered follow-up visit in 4 weeks with an office visit INJECTION with RAJANI PA PA-C 08/15/2021 Last Documented On 2 5:00PM ; [facility] Referrals To Diagnosis General Surgery Cellulitis of un specified part of limb Note: Dr Faust is going t o see him 03-01 at about 4pm Last Documented On 2 1:22PM ; [facility] General Surgery Encounter for sc reening for malignant neoplasm of colon Note: anybody in [place] Last Documented On 2 2:03PM ; [facility] Podiatry Pain in right an kle and joints of right foot Note: Referral to Podiatry - Dr. Jane for bilateral foot pain. Last Documented On 2 5:39PM ; [facility] Dispatcher Clerk [facility] [address] [id number] - Shortness of breath Note: Referred to [facility] rdiology. Last Documented On 4 6:10PM ; [facility] Education and Decision Aids were provided during visit for: Patient education about home safety plans for prevention of falls : Patient completed a Fall risk assesment and was provided fall risk education materials Last Documented On 4 11:17AM ; [facility] Assessments Includes: Assessments for all patient encounters Findings Encounter Date Alcohol dependence CHECK UP with SALMA RYDER MD 06/19/2023 Last Documented On 4 4:59PM ; [facility] GERD CHECK UP with SALMA ESCOBAR MD 06/19/2023 Last Documented On 4 4:59PM ; [facility] Neuropathy CHECK UP with SALMA ESCOBAR MD 06/19/2023 Last Documented On 4 4:59PM ; [facility] Shortness of breath CHECK UP with SALMA QUINTANA MD 06/19/2023 Last Documented On 4 4:59PM ; [facility] Asthma SICK VISIT with ALESSANDRO Stratton [facility] 12/21/2022 Last Documented On 3 10:21AM ; [facility] [M25.571 - Pain in right ank le and joints of right foot] arthralgia of the right ankle/foot PROBLEM VISIT with ALESSANDRO MCMAHON [facility] 08/28/2022 Last Documented On 3 7:54AM ; [facility] Alcohol dependence in remission CHECK UP with SHARRON ESCOBAR MD 05/30/2022 Last Documented On 3 12:56PM ; [facility] GERD CHECK UP with SALMA ESCOBAR MD 05/30/2022 Last Documented On 3 12:56PM ; [facility] Left olecranon bursitis CHECK UP with SALMA BROWN MD 05/30/2022 Last Documented On 3 12:56PM ; [facility] Neuropathy CHECK UP with SALMA ESCOBAR MD 05/30/2022 Last Documented On 3 12:56PM ; [facility] Allergic rhinitis CHECK UP with SALMA WEINBERG MD 01/29/2022 Last Documented On 2 5:12PM ; [facility] GERD CHECK UP with SALMA ESCOBAR MD 01/29/2022 Last Documented On 2 5:12PM ; [facility] Neuropathy CHECK UP with SALMA ESCOBAR MD 01/29/2022 Last Documented On 2 5:12PM ; [facility] Urinary tract infection CHECK UP with SALMA BROWN MD 01/29/2022 Last Documented On 2 5:12PM ; [facility] [K21.9 - Gastro-esophageal r eflux disease without esophagitis] GERD FOLLOW UP with VIJAYA PEREZ MD 12/04/2021 Last Documented On 2 8:04PM ; [facility] Alcohol dependence in remission CHECK UP with SHARRON ESCOBAR MD 10/17/2021 Last Documented On 2 12:25PM ; [facility] Arthralgia of the right ulna/radius/wrist CHECK UP with SALMA ESCOBAR MD 10/17/2021 Last Documented On 2 12:25PM ; [facility] GERD CHECK UP with SALMA ESCOBAR MD 10/17/2021 Last Documented On 2 12:25PM ; [facility] Neuropathy CHECK UP with SALMA ESCOBAR MD 10/17/2021 Last Documented On 2 12:25PM ; [facility] Alcohol dependence in remission INJECTION with Jose ESCOBAR MD 09/15/2021 Last Documented On 2 6:15PM ; [facility] [Z12.11 - Encounter for scre ening for malignant neoplasm of colon] Colon screening CONSULTATION - NEW PATIENT with VIJAYA PEREZ MD 09/12/2021 Last Documented On 2 8:57AM ; [facility] Alcohol dependence in remission INJECTION with Conor PA PA-C 08/15/2021 Last Documented On 2 5:00PM ; [facility] Alcohol dependence in remission INJECTION with Jose ESCOBAR MD 07/18/2021 Last Documented On 2 5:23PM ; [facility] Edema INJECTION with SALMA Arias MD 07/18/2021 Last Documented On 2 5:23PM ; [facility] Alcohol dependence in remission INJECTION with Jose ESCOBAR MD 06/20/2021 Last Documented On 2 8:41AM ; [facility] Alcohol dependence in remission INJECTION with Jose ESCOBAR MD 05/23/2021 Last Documented On 2 10:53PM ; [facility] Neuropathy INJECTION with SALMA Arias MD 05/23/2021 Last Documented On 2 10:53PM ; [facility] Alcohol dependence in remission INJECTION with Jose ESCOBAR MD 04/25/2021 Last Documented On 2 12:39AM ; [facility] Allergic rhinitis INJECTION with SALMA DELISAVING-D BRITNI SKAGGS 04/25/2021 Last Documented On 2 12:39AM ; [facility] Pain in left foot INJECTION with SALMA DELISAVING-D BRITNI SKAGGS 04/25/2021 Last Documented On 2 12:39AM ; [facility] Spasmodic rhinorrhea INJECTION with SALMA SKINNER GJESSICA SKAGGS 04/25/2021 Last Documented On 2 12:39AM ; [facility] Alcohol dependence in remission INJECTION with C KELSEY ESCOBAR MD 03/28/2021 Last Documented On 2 9:29PM ; [facility] Cellulitis and abscess of thigh INJECTION with Jose ESCOBAR MD 03/28/2021 Last Documented On 2 9:29PM ; [facility] Fatigue INJECTION with SALMA Arias MD 03/28/2021 Last Documented On 2 9:29PM ; [facility] Alcohol dependence in remission INJECTION with Jose ESCOBAR MD 02/28/2021 Last Documented On 2 12:19AM ; [facility] Cellulitis and abscess of thigh INJECTION with Jose ESCOBAR MD 02/28/2021 Last Documented On 2 12:19AM ; [facility] Alcohol dependence in remission INJECTION with Jose ESCOBAR MD 02/01/2021 Last Documented On 1 10:02PM ; [facility] Depression with anxiety INJECTION with SALMA RUIZ MD 02/01/2021 Last Documented On 1 10:02PM ; [facility] Pain in left finger INJECTION with SALMA LOPEZ MD 02/01/2021 Last Documented On 1 10:02PM ; [facility] Alcohol dependence in remission CHECK UP with IS CHRISTIANSON Hugo ODELL DO 01/06/2021 Last Documented On 1 9:01AM ; [facility] Allergic rhinitis CHECK UP with LUIS MANUEL Hugo ODELL DO 01/06/2021 Last Documented On 1 9:01AM ; [facility] [R07.82 - Intercostal pain] intercostal pain PROCEDURE OFFICE with SALMA ESCOBAR MD 12/08/2020 Last Documented On 1 3:50PM ; [facility] Alcohol use with alcohol-ind uced disorder PROCEDURE OFFICE with SALMA ESCOBAR MD 12/08/2020 Last Documented On 1 3:50PM ; [facility] Neuropathy PROCEDURE OFFICE with SALMA BROWN MD 12/08/2020 Last Documented On 1 3:50PM ; [facility] Primary insomnia PROCEDURE OFFICE with SALMA RUIZ MD 12/08/2020 Last Documented On 1 3:50PM ; [facility] Arthralgia of the left humerus/elbow CHECK UP wi th SALMA ESCOBAR MD 11/22/2020 Last Documented On 1 5:04PM ; [facility] Generalized anxiety disorder CHECK UP with TESSIE ESCOBAR MD 11/22/2020 Last Documented On 1 5:04PM ; [facility] Primary insomnia CHECK UP with SALMA Arias MD 11/22/2020 Last Documented On 1 5:04PM ; [facility] Generalized anxiety disorder CHECK UP with TESSIE ESCOBAR MD 11/15/2020 Last Documented On 1 11:03PM ; [facility] Primary insomnia CHECK UP with SALMA Arias MD 11/15/2020 Last Documented On 1 11:03PM ; [facility] Arthralgia of ankle / foot NEW PATIENT E XAM - ADULT with SALMA ESCOBAR MD 10/07/2020 Last Documented On 11:41AM ; [facility] Arthralgia of left foot NEW PATIENT EXAM - ADULT with SALMA ESCOBAR MD 10/07/2020 Last Documented On 1 11:41AM ; [facility] Arthralgia of right foot NEW PATIENT EXA M - ADULT with SALMA ESCOBAR MD 10/07/2020 Last Documented On 1 11:41AM ; [facility] Cough NEW PATIENT EXAM - ADULT with CR CODY ESCOBAR MD 10/07/2020 Last Documented On 11:41AM ; [facility] GERD NEW PATIENT EXAM - ADULT with CR CODY ESCOBAR MD 10/07/2020 Last Documented On 11:41AM ; [facility] Neuropathy NEW PATIENT EXAM - ADULT with CR CODY ESCOBAR MD 10/07/2020 Last Documented On 11:41AM ; [facility] Instructions Includes: Instructions for all patient encounters Education and Decision Aids were provided during visit for: Patient education about home safety plans for prevention of falls : Patient completed a Fall risk assesment and was provided fall risk education materials Last Documented On 4 11:17AM ; [facility] Medical Equipment - Implanted Devices Includes: Current and historical Devices No Medical Equipment Recorded Medications Includes: Current and historical Medications Current Medications (continue as prescribed) Cyanocobalamin 1000 MCG/ML I njection Solution 06/26/2023 Provider: SALMA Mi Diagnosis: ONE B12 INJECTION WEEKLY FOR 3 MONTHS Last Documented On 06/26/2023 2:47PM By KAVIN POWELL ; [facility] BD Luer-Porsha Syringe 25G X 5/ 8 3 ML Miscellaneous 06/26/2023 Provider: SALMA Mi Diagnosis: USE ONE SYRINGE WEEKLY FOR B12 INJ Last Documented On 06/26/2023 2:47PM By KAVIN POWELL ; [facility] QUEtiapine Fumarate 200 MG Oral Tablet 06/12/2023 Pr ovider: SALMA ESCOBAR MD Diagnosis: TAKE 1/2 TO 1 [facility] Last Documented On 4 6:07PM By SALMA ESCOBAR MD ; [facility] DULoxetine HCl 60 MG Oral Ca psule Delayed Release Particles 06/12/2023 Provider: SALMA Mi Diagnosis: TAKE 1 CAPSULE BY MOUTH TWICE A DAY Last Documented On 4 6:07PM By SALMA ESCOBAR MD ; [facility] Pregabalin 100 MG Oral Capsule 06/11/2023 Provider: SALMA ESCOBAR MD Diagnosis: TAKE 1 CAPSULE BY MOUTH TWICE A DAY Last Documented On 4 10:52PM By SALMA ESCOBAR MD ; [facility] Omeprazole 40 MG Oral Capsul e Delayed Release 05/16/2023 Provider: CYRUS STARKEY [employer]S HISTORIAN- FPA, [employer]-BC Diagnosis: TAKE 1 CAPSULE BY MOUTH EVERY DAY Last Documented On 05/16/2023 1:48PM By Carol POWELL ; [facility] Trelegy Ellipta 100-62.5-25 MCG/ACT Inhalation Aerosol Powder Breath Activated 12/19/2022 Provider: Diagnosis: From allergy, [facility] in [place] Last Documented On 12/19/2022 3:51PM By KAVIN POWELL ; [facility] Albuterol Sulfate HFA 108 (9 0 Base) MCG/ACT Inhalation Aerosol Solution 05/28/2022 Provider: Diagnosis: Last Documented On 05/30/2022 8:26AM By Carol POWELL ; [facility] Fluticasone Propionate 50 MC G/ACT Nasal Suspension 02/19/2021 Provider: SALMA Mi Diagnosis: USE 2 SPRAYS IN EACH NOSTRIL EVERY DAY Last Documented On 02/19/2021 6:22PM By Carol POWELL ; [facility] Past Medications on file DULoxetine HCl 60 MG Oral Capsule Delayed Release Particles 05/20/2023 - 06/12/2023 Provider: SALMA WEINBERG MD Diagnosis: TAKE 1 CAPSULE BY MOUTH TWICE A DAY Last Documented On 4 6:00PM By SALMA ESCOBAR MD ; [facility] QUEtiapine Fumarate 200 MG Oral Tablet 05/20/2023 - 06/12/2023 Provider: SALMA WEINBERG MD Diagnosis: TAKE 1/2 TO 1 TABLET BY MOUTH [facility] Last Documented On 4 6:00PM By SALMA ESCOBAR MD ; [facility] Pregabalin 100 MG Oral Capsule 03/11/2023 - 06/11/2023 Provider: SALMA WEINBERG MD Diagnosis: TAKE 1 CAPSULE BY MOUTH TWICE A DAY Last Documented On 10:38PM By SALMA ESCOBAR MD ; [facility] Omeprazole 40 MG Oral Capsule Delayed Release 02/13/2023 - 05/16/2023 Provider: CYRUS BARROS LP DRAMATIC [employer]S HISTORIAN- FPA, [employer]ER-BC Diagnosis: TAKE 1 CAPSULE BY MOUTH EVERY DAY Last Documented On 05/16/2023 1:38PM By Carol POWELL ; [facility] Pregabalin 100 MG Oral Capsule 01/01/2023 - 03/11/2023 Provider: SALMA WEINBERG MD Diagnosis: TAKE 1 CAPSULE BY MOUTH TWICE A DAY Last Documented On 10:42PM By SALMA ESCOBAR MD ; [facility] Zithromax Z-Chris 250 MG Oral Tablet 12/13/2022 - 12/21/2022 Provider: RAJANI PA PA-C Diagnosis: Take as directed. Last Documented On 9:06AM By PAKO POWELL ; [facility] Benzonatate 200 MG Oral Capsule 12/13/2022 - 12/23/2022 Provider: RAJANI PA PA-C Diagnosis: One tablet twice a day PRN for cough Last Documented On 06/19/2023 11:17AM By Carol Blum Jill ; [facility] QUEtiapine Fumarate 200 MG Oral Tablet 11/13/2022 - 05/20/2023 Provider: SALMA WEINBERG MD Diagnosis: TAKE HALF TO ONE TAB AT BEDTIME Last Documented On 05/20/2023 9:12PM By [facility] ; [facility] DULoxetine HCl 60 MG Oral Capsule Delayed Release Particles 11/12/2022 - 05/20/2023 Provider: SALMA WEINBERG MD Diagnosis: TAKE 1 CAPSULE BY MOUTH TWICE A DAY Last Documented On 05/20/2023 8:55PM By Carol POWELL ; [facility] QUEtiapine Fumarate 200 MG Oral Tablet 07/17/2022 - 11/13/2022 Provider: SALMA WEINBERG MD Diagnosis: TAKE HALF TO ONE TAB AT BEDTIME Last Documented On 11/13/2022 4:58PM By Carol POWELL ; [facility] DULoxetine HCl 60 MG Oral Capsule Delayed Release Particles 06/06/2022 - 11/12/2022 Provider: SALMA WEINBERG MD Diagnosis: TAKE 1 CAPSULE BY MOUTH TWICE A DAY Last Documented On 11/12/2022 5:17PM By Carol POWELL ; [facility] Pregabalin 100 MG Oral Capsule 05/30/2022 - 01/01/2023 Provider: SALMA WEINBERG MD Diagnosis: One tablet twice a day Last Documented On 6:36PM By SALMA ESCOBAR MD ; [facility] Zithromax 250 MG Oral Tablet 04/20/2022 - 04/13/2022 Armando hicksder: SALMA QUINTANA MD Diagnosis: 2 today and then one for 4 more days Last Documented On 05/30/2022 8:11AM By aCrol POWELL ; [facility] Zithromax 250 MG Oral Tablet 03/16/2022 - 04/20/2022 Armando hicksder: SALMA QUINTANA MD Diagnosis: 2 today and then one for 4 more days Last Documented On 1:58PM By SALAM ESCOBAR MD ; [facility] Omeprazole 20 MG Oral Capsule Delayed Release 02/01/2022 - 04/13/2022 Provider: SALMA ESCOBAR MD Diagnosis: Gastro-esophagea l reflux disease without esophagitis 1 capsule daily Last Documented On 05/30/2022 8:11AM By Carol POWELL ; [facility] Omeprazole 40 MG Oral Capsul e Delayed Release 01/31/2022 - 02/13/2023 Provider: SALMA WEINBERG MD Diagnosis: TAKE 1 CAPSULE BY MOUTH EVERY DAY Last Documented On 8:37AM By CYRUS STARKEY [facility] ; [facility] Fexofenadine HCl 180 MG Oral Tablet 01/29/2022 - 04/13 Provider: Diagnosis: Last Documented On 05/30/2022 8:26AM By Carol POWELL ; [facility] Omeprazole 20 MG Oral Capsule Delayed Release 01/29/2022 - 02/01/2022 Provider: SALMA ESCOBAR MD Diagnosis: Gastro-esophagea l reflux disease without esophagitis 1 BID for acid reflux dose change Last Documented On 9:07AM By SALMA ESCOBAR MD ; [facility] QUEtiapine Fumarate 200 MG Oral Tablet 01/17/2022 - 07/17/2022 Provider: SALMA WEINBERG MD Diagnosis: half to one tab at bedtime Last Documented On 07/17/2022 1:18PM By Carol POWELL ; [facility] Pregabalin 100 MG Oral Capsule 01/15/2022 - 05/30/2022 Provider: SALMA WEINBERG MD Diagnosis: One tablet twice a day Last Documented On 8:35AM By SALMA ESCOBAR MD ; [facility] DULoxetine HCl 60 MG Oral Capsule Delayed Release Particles 12/11/2021 - 06/06/2022 Provider: SALMA WEINBERG MD Diagnosis: TAKE 1 CAPSULE BY MOUTH TWICE A DAY Last Documented On 06/06/2022 2:45PM By Carol Hand RMA ; [facility] Omeprazole 20 MG Oral Capsule Delayed Release 12/04/2021 - 01/11/2022 Provider: VIJAYA PEREZ MD Diagnosis: Helicobacter pyl rene as the cause of diseases classd elswhr 1 CAPSULE TWO TIMES A DAY Last Documented On 01/29/2022 8:26AM By Carol Hand RMA ; [facility] Doxycycline Hyclate 100 MG Oral Tablet 12/04/2021 - 01/11/2022 Provider: VIJAYA PEREZ MD Diagnosis: Helicobacter pyl rene as the cause of diseases classd elswhr One tablet twice a day Last Documented On 01/29/2022 8:26AM By Carol Hand RMA ; [facility] metroNIDAZOLE 500 MG Oral Tablet 12/04/2021 - 01/11/2022 Provider: VIJAYA PEREZ MD Diagnosis: Helicobacter pyl rene as the cause of diseases classd elswhr One tablet three times a day Last Documented On 01/29/2022 8:25AM By Carol Photos to Photos RMA ; [facility] Pepto-Bismol 262 MG Oral Tablet 12/04/2021 - 01/11/2022 Provider: VIJAYA PEREZ MD Diagnosis: Helicobacter pyl rene as the cause of diseases classd elswhr One tablet four times a day Last Documented On 01/29/2022 8:27AM By Carol Photos to Photos RMA ; [facility] cloNIDine HCl 0.1 MG Oral Tablet 10/09/2021 - 09/16/2021 Provider: SALMA WEINBERG MD Diagnosis: Primary insomnia TAKE 1 TABLET BY MOUTH EVERY DAY AT BEDTIME FOR SLEEP Last Documented On 11:41AM By SALMA ESCOBAR MD ; [facility] Levocetirizine Dihydrochloride 5 MG Oral Tablet 08/28/2021 - 09/16/2021 Provider: SALMA WEINBERG MD Diagnosis: TAKE 1 TABLET BY MOUTH EVERY DAY FOR ALLERGIES Last Documented On 11:41AM By SALMA ESCOBAR MD ; [facility] hydrOXYzine HCl 25 MG Oral Tablet 08/08/2021 - 09/16/2021 Provider: SALMA ESCOBAR MD Diagnosis: Other specified anxiety disorders TAKE 1 TABLET BY MOUTH EVERY 6 HOURS NEEDED FOR ANXIETY Last Documented On 11:42AM By SALMA ESCOBAR MD ; [facility] Levocetirizine Dihydrochloride 5 MG Oral Tablet 2021 - 08/28/2021 Provider: SALMA WEINBERG MD Diagnosis: TAKE 1 TABLET BY MOUTH EVERY DAY FOR ALLERGIES Last Documented On 08/28/2021 5:09PM By Carol Hand RMA ; [facility] hydrOXYzine HCl 25 MG Oral Tablet 07/26/2021 - 08/08/2021 Provider: SALMA ESCOBAR MD Diagnosis: Other specified anxiety disorders TAKE 1 TABLET BY MOUTH EVERY 6 HOURS NEEDED FOR ANXIETY Last Documented On 08/08/2021 7:53AM By Carol Hand RMA ; [facility] cloNIDine HCl 0.1 MG Oral Tablet 07/13/2021 - 10/09/2021 Provider: SALMA WEINBERG MD Diagnosis: Primary insomnia TAKE 1 TABLET BY MOUTH EVERY DAY AT BEDTIME FOR SLEEP Last Documented On 10/09/2021 11:46AM By Carol Hand RMA ; [facility] Levocetirizine Dihydrochloride 5 MG Oral Tablet 07/11/2021 - 2021 Provider: SALMA WEINBERG MD Diagnosis: TAKE 1 TABLET BY MOUTH EVERY DAY FOR ALLERGIES Last Documented On 2021 1:01PM By Carol Hand RMA ; [facility] hydrOXYzine HCl 25 MG Oral Tablet 07/11/2021 - 07/26/2021 Provider: SALMA ESCOBAR MD Diagnosis: Other specified anxiety disorders TAKE 1 TABLET BY MOUTH EVERY 6 HOURS NEEDED FOR ANXIETY Last Documented On 07/26/2021 10:41AM By Carol Hand RMA ; [facility] hydrOXYzine HCl 25 MG Oral Tablet 07/03/2021 - 07/11/2021 Provider: SALMA ESCOBAR MD Diagnosis: Other specified anxiety disorders TAKE 1 TABLET BY MOUTH EVERY 6 HOURS NEEDED FOR ANXIETY Last Documented On 07/11/2021 1:21PM By Carol Hand RMA ; [facility] hydrOXYzine HCl 25 MG Oral Tablet 06/20/2021 - 07/03/2021 Provider: SALMA ESCOBAR MD Diagnosis: Other specified anxiety disorders TAKE 1 TABLET BY MOUTH EVERY 6 HOURS NEEDED FOR ANXIETY Last Documented On 07/03/2021 11:04AM By Wideo [facility] ; [facility] Levocetirizine Dihydrochloride 5 MG Oral Tablet 06/08/2021 - 07/11/2021 Provider: SALMA WEINBERG MD Diagnosis: ONE TABLET DAILY FOR ALLERGIES Last Documented On 07/11/2021 3:51PM By Wideo [facility] ; [facility] hydrOXYzine HCl 25 MG Oral Tablet 06/06/2021 - 06/20/2021 Provider: SALMA ESCOBAR MD Diagnosis: Other specified anxiety disorders TAKE 1 TABLET BY MOUTH EVERY 6 HOURS NEEDED FOR ANXIETY Last Documented On 06/20/2021 9:49AM By Wideo [facility] ; [facility] DULoxetine HCl 60 MG Oral Capsule Delayed Release Particles 05/23/2021 - 12/11/2021 Provider: SALMA WEINBERG MD Diagnosis: BID Last Documented On 12/11/2021 11:50AM By Wideo [facility] ; [facility] Pregabalin 75 MG Oral Capsule 05/23/2021 - 01/11/2022 Provider: SALMA QUINTANA MD Diagnosis: One tablet twice a day Last Documented On 01/29/2022 8:26AM By Wideo [facility] ; [facility] QUEtiapine Fumarate 200 MG Oral Tablet 05/20/2021 - 01/17/2022 Provider: SALMA WEINBERG MD Diagnosis: half to one tab at bedtime Last Documented On 01/17/2022 3:47PM By Wideo [facility] ; [facility] SEROquel 200 MG Oral Tablet 05/18/2021 - 01/11/2022 Pr ovider: SALMA ESCOBAR MD Diagnosis: one at bedtime Last Documented On 01/29/2022 8:28AM By Wideo [facility] ; [facility] Levocetirizine Dihydrochloride 5 MG Oral Tablet 05/15/2021 - 06/08/2021 Provider: SALMA WEINBERG MD Diagnosis: ONE TABLET DAILY FOR ALLERGIES Last Documented On 06/08/2021 2:20PM By Carol Photos to Photos SHERRY ; [facility] Levocetirizine Dihydrochloride 5 MG Oral Tablet 04/25/2021 - 05/15/2021 Provider: SALMA WEINBERG MD Diagnosis: One tablet daily for allergies Last Documented On 05/15/2021 11:13AM By Carolhanny POWELL ; [facility] cloNIDine HCl 0.1 MG Oral Tablet 04/12/2021 - 07/13/2021 Provider: SALMA WEINBERG MD Diagnosis: Primary insomnia TAKE 1 TABLET BY MOUTH EVERY DAY AT BEDTIME FOR SLEEP Last Documented On 07/13/2021 7:56AM By Carolhanny POWELL ; [facility] DULoxetine HCl 60 MG Oral Capsule Delayed Release Particles 04/12/2021 - 05/23/2021 Provider: SALMA WEINBERG MD Diagnosis: BID Last Documented On 8:30AM By SALMA ESCOBAR MD ; [facility] QUEtiapine Fumarate 200 MG Oral Tablet 03/28/2021 - Provider: Diagnosis: half to one tab at bedtime Last Documented On 05/23/2021 8:20AM By Carolhanny POWELL ; [facility] traZODone HCl 50 MG Oral Tablet 03/28/2021 - Provider: Diagnosis: Last Documented On 11:42AM By SALMA ESCOBAR MD ; [facility] Vivitrol 380 MG Intramuscula r Suspension Reconstituted 03/28/2021 - 01/11/2022 Provider: Diagnosis: once a month Last Documented On 01/29/2022 8:25AM By Carolhanny POWELL ; [facility] hydrOXYzine HCl 25 MG Oral Tablet 02/21/2021 - 06/06/2021 Provider: SALMA ESCOBAR MD Diagnosis: Other specified anxiety disorders TAKE 1 TABLET BY MOUTH EVERY 6 HOURS NEEDED FOR ANXIETY Last Documented On 06/06/2021 4:41PM By Carol POWELL ; [facility] Fluticasone Propionate 50 MCG/ACT Nasal Suspension 02/12/2021 - 02/19/2021 Provider: SALMA REDDING MD Diagnosis: INSTILL 2 SPRAYS IN EACH NOSTRIL EVERY DAY Last Documented On 02/19/2021 6:12PM By Carol POWELL ; [facility] hydrOXYzine HCl 25 MG Oral Tablet 02/10/2021 - 02/21/2021 Provider: SALMA ESCOBAR MD Diagnosis: Other specified anxiety disorders TAKE 1 TABLET BY MOUTH EVERY 6 HOURS NEEDED FOR ANXIETY Last Documented On 02/21/2021 1:02PM By Carol POWELL ; [facility] hydrOXYzine HCl 25 MG Oral Tablet 02/01/2021 - 02/10/2021 Provider: SALMA ESCOBAR MD Diagnosis: Other specified anxiety disorders 1 every 6 hours as needed PRN anxiety Last Documented On 12:03AM By SALMA ESCOBAR MD ; [facility] Pregabalin 75 MG Oral Capsule 01/20/2021 - 05/23/2021 Provider: SALMA QUINTANA MD Diagnosis: One tablet twice a day Last Documented On 2 8:31AM By SALMA ESCOBAR MD ; [facility] Ibuprofen 600 MG Oral Tablet 01/20/2021 - 01/11/2022 Armando rodriguez: SALMA QUINTANA MD Diagnosis: TAKE ONE TABLET BY MOUTH THR EE TIMES A DAY NEEDED FOR PAIN... TAKE WITH FOOD Last Documented On 01/29/2022 8:28AM By Carol POWELL ; [facility] cloNIDine HCl 0.1 MG Oral Tablet 01/19/2021 - 04/12/2021 Provider: SALMA WEINBERG MD Diagnosis: Primary insomnia TAKE 1 TABLET BY MOUTH EVERY DAY AT BEDTIME FOR SLEEP Last Documented On 04/12/2021 11:24AM By Carol POWELL ; [facility] Fluticasone Propionate 50 MCG/ACT Nasal Suspension 01/19/2021 - 02/12/2021 Provider: SALMA REDDING MD Diagnosis: as directed 2 sprays each nostril qd Last Documented On 2 1:58PM By SALMA ESCOBAR MD ; [facility] DULoxetine HCl 60 MG Oral Capsule Delayed Release Particles 01/19/2021 - 04/12/2021 Provider: SALMA WEINBERG MD Diagnosis: BID Last Documented On 04/12/2021 11:25AM By Wideo RMJill ; [facility] Ibuprofen 600 MG Oral Tablet 01/19/2021 - 01/20/2021 Armando rodriguez: SALMA QUINTANA MD Diagnosis: One tablet three times a day prn for pain... TAKE with FOOD Last Documented On 01/20/2021 8:43AM By Carol Hand RMA ; [facility] Omeprazole 40 MG Oral Capsul e Delayed Release 01/19/2021 - 01/31/2022 Provider: SALMA WEINBERG MD Diagnosis: 1 capsule daily Last Documented On 01/31/2022 11:22AM By Carol Photos to Photos RMA ; [facility] SEROquel 200 MG Oral Tablet 01/19/2021 - 05/18/2021 Pr ovider: SALMA ESCOBAR MD Diagnosis: one at bedtime Last Documented On 2 1:56PM By RAJANI PA PA-C ; [facility] SEROquel 200 MG Oral Tablet 01/06/2021 - 01/11/2021 Pr ovider: Diagnosis: one at bedtime Last Documented On 02/01/2021 4:03PM By Carol Photos to Photos RMJill ; [facility] cloNIDine HCl 0.1 MG Oral Tablet 01/05/2021 - 01/19/2021 Provider: SALMA WEINBERG MD Diagnosis: Primary insomnia TAKE 1 TABLET BY MOUTH EVERY DAY AT BEDTIME FOR SLEEP Last Documented On 01/19/2021 4:33PM By Carol Photos to Photos RMJill ; [facility] traZODone HCl 50 MG Oral Tablet 12/30/2020 - 01/10/2021 Provider: SALMA ESCOBAR MD Diagnosis: Generalized anxi ety disorder TAKE 1 TABLET BY MOUTH EVERY DAY AT BEDTIME Last Documented On 6:03PM By SALMA ESCOBAR MD ; [facility] Ibuprofen 600 MG Oral Tablet 12/16/2020 - 01/19/2021 Armando QUINTANA MD Diagnosis: One tablet three times a day prn for pain... TAKE with FOOD Last Documented On 01/19/2021 4:32PM By Carol Hand SHERRY ; [facility] cloNIDine HCl 0.1 MG Oral Tablet 12/14/2020 - 01/05/2021 Provider: SALMA WEINBERG MD Diagnosis: Primary insomnia TAKE 1 TABLET BY MOUTH AT BEDTIME FOR SLEEP Last Documented On 11:15AM By SALMA ESCOBAR MD ; [facility] traZODone HCl 50 MG Oral Tablet 12/07/2020 - 12/30/2020 Provider: SALMA ESCOBAR MD Diagnosis: Generalized anxi ety disorder TAKE 1 TABLET BY MOUTH AT BEDTIME Last Documented On 12/30/2020 11:18AM By Carol Photos to Photos A ; [facility] chlordiazePOXIDE-Clidinium 5 -2.5 MG Oral Capsule 11/30/2020 - 01/11/2021 Provider: SALMA ESCOBAR MD Diagnosis: Take one four times a day as needed Last Documented On 02/01/2021 4:03PM By Wideo Jill ; [facility] chlordiazePOXIDE HCl 5 MG Or al Capsule 11/25/2020 - 11/11/2020 Provider: SALMA WEINBERG MD Diagnosis: as directed one tablet twice a day and may take an additonal tablet twice a day if needed for 4 a day for anxiety Last Documented On 12/08/2020 8:15AM By Wideo Jill ; [facility] cloNIDine HCl 0.1 MG Oral Tablet 11/22/2020 - 12/14/2020 Provider: SALMA WEINBERG MD Diagnosis: Primary insomnia One tablet at bed time for sleep Last Documented On 12/14/2020 11:28AM By Wideo Jill ; [facility] chlordiazePOXIDE HCl 5 MG Or al Capsule 11/16/2020 - 11/25/2020 Provider: SALMA WEINBERG MD Diagnosis: as directed one tablet twice a day and may take an additonal tablet twice a day if needed for 4 a day for anxiety Last Documented On 7:11PM By SALMA ESCOBAR MD ; [facility] traZODone HCl 50 MG Oral Tablet 11/15/2020 - 12/07/2020 Provider: SALMA ESCOBAR MD Diagnosis: Generalized anxi ety disorder One tablet at bed time Last Documented On 12/07/2020 2:59PM By Carol POWELL ; [facility] chlordiazePOXIDE HCl 5 MG Oral Capsule 11/15/2020 - 11/16/2020 Provider: SALMA ESCOBAR MD Diagnosis: Generalized anxi ety disorder as directed one tablet twice a day and may take an additonal tablet twice a day if needed for 4 a day for anxiety Last Documented On 5:38PM By SALMA ESCOBAR MD ; [facility] Fluticasone Propionate 50 MCG/ACT Nasal Suspension 10/21/2020 - 01/19/2021 Provider: SALMA REDDING MD Diagnosis: as directed 2 sprays each nostril qd Last Documented On 01/19/2021 4:33PM By Carol POWELL ; [facility] Fluticasone Propionate 50 MCG/ACT Nasal Suspension 10/21/2020 - 10/21/2020 Provider: SALMA REDDING MD Diagnosis: as directed 2 sprays each nostril qd Last Documented On 10/21/2020 2:36PM By PETERSON POWELL ; [facility] Pregabalin 75 MG Oral Capsule 10/07/2020 - 01/11/2021 Provider: Diagnosis: BID Last Documented On 02/01/2021 4:03PM By Carol POWELL ; [facility] Omeprazole 40 MG Oral Capsul e Delayed Release 10/07/2020 - 01/19/2021 Provider: SALMA WEINBERG MD Diagnosis: 1 capsule daily Last Documented On 01/19/2021 4:32PM By Carol POWELL ; [facility] Omeprazole 40 MG Oral Capsule Delayed Release 10/08/19 21 - 10/07/2020 Provider: Diagnosis: DAILY Last Documented On 11:17AM By SALMA ESCOBAR MD ; [facility] DULoxetine HCl 60 MG Oral Ca psule Delayed Release Particles 10/07/2020 - 01/11/2021 Provider: Diagnosis: BID Last Documented On 02/01/2021 4:03PM By Carol POWELL ; [facility] Medications Administered Includes: Administered Medications in patient's chart Medications Administered Diagnosis Date Pro vider Vivitrol 380 MG IM SUSR Alcohol dependen ce, in remission 02/01/2021 SALMA ESCOBAR MD Last Documented On 1 5:19PM By Carol Hand RMA ; [facility] Vivitrol 380 MG IM SUSR Alcohol dependen ce, in remission 10/17/2021 SALMA ESCOBAR MD Last Documented On 2 11:39AM By Carol Hand RMA ; [facility] Vivitrol 380 MG IM SUSR Alcohol dependen ce, in remission 09/15/2021 SALMA ESCOBAR MD Last Documented On 2 4:40PM By Carol Hand RMA ; [facility] Vivitrol 380 MG IM SUSR 08/15/2021 DILLON PA PA-C Last Documented On 2 4:45PM By KAVIN WEAVER RMA ; [facility] Vivitrol 380 MG IM SUSR Alcohol dependen ce, in remission 07/18/2021 SALMA ESCOBAR MD Last Documented On 2 4:29PM By Carol Hand RMA ; [facility] Vivitrol 380 MG IM SUSR Alcohol dependen ce, in remission 06/20/2021 SALMA ESCOBAR MD Last Documented On 2 8:33AM By Carol Hand RMA ; [facility] Vivitrol 380 MG IM SUSR Alcohol dependen ce, in remission 05/23/2021 SALMA ESCOBAR MD Last Documented On 2 8:38AM By Carol Hand RMA ; [facility] Vivitrol 380 MG IM SUSR Alcohol dependen ce, in remission 04/25/2021 SALMA ESCOBAR MD Last Documented On 2 4:12PM By Carol Hand RMA ; [facility] Vivitrol 380 MG IM SUSR Alcohol dependen ce, in remission 03/28/2021 SALMA ESCOBAR MD Last Documented On 2 9:00AM By Carol Hand RMA ; [facility] Vivitrol 380 MG IM SUSR Alcohol dependen ce, in remission 02/28/2021 SALMA ESCOBAR MD 380mg Last Documented On 2 4:25PM By Carol Hand RMA ; [facility] Vital Signs Includes: Vital Signs from 06/09/2023 through 06/08/2024 Vital Name 06/19/2023 11:28A Blood Pressure Sitting L 100/66 BP Cuff Size Regular Pulse Rate-Sitting (bpm) 95 Respiration Rate (breaths/min) 19 Temp-Temporal 97.4 Height (in) 72 Weight (lb) 219 Body Mass Index 29.7 Body Surface Area (m2) 2.2 Oxygen Saturation (%) 98 Last Documented: On 06/19/2023 11:33A M ; [facility] Results Includes: Results from 06/09/2023 through 06/08/2024 CBC WITH DIFF [facility] Ordered by SALMA Arias MD on 06/19/2023 [address] [place], [address] Collected: 06/19/2023 Report ed: 06/19/2023 13:04 tel: Last Documented On 4 11:13PM ; [facility] Reviewed by SALMA WEINBERG MD on 07/14/2023; All test results are final unless otherwise noted. ALC 2.5 None Last Documented On 4 8:41PM ; [facility] Note: Responsible Observer: (HRG) ANC 2.0 None Last Documented On 4 8:41PM ; [facility] Note: Responsible Observer: (HRG) BASO# 0.04 th/uL (0.00 - 0.20) None Last Documented On 4 8:41PM ; [facility] Note: Responsible Observer: (HRG) BASO% 0.8 % (0.0 - 2.0) None Last Documented On 4 8:41PM ; [facility] Note: Responsible Observer: (HRG) CBC WITH DIFF See Note None Last Documented On 4 8:41PM ; [facility] Note: CBC (COMPLETE BLOOD COUNT)Responsi ble Observer: (HRG) DIFF (Y/N) NO None Last Documented On 4 8:41PM ; [facility] Note: Responsible Observer: (HRG) EOS# 0.10 th/uL (0.00 - 0.45) None Last Documented On 4 8:41PM ; [facility] Note: Responsible Observer: (HRG) EOS% 1.9 % (0.0 - 9.0) None Last Documented On 4 8:41PM ; [facility] Note: Responsible Observer: (HRG) HCT 47.1 % (40.0 - 54.0) None Last Documented On 4 8:41PM ; [facility] Note: Responsible Observer: (HRG) HGB 14.9 g/dL (13.5 - 17.5) None Last Documented On 4 8:41PM ; [facility] Note: Responsible Observer: (HRG) IG# 0.01 th/ul (0.00 - 0.10) None Last Documented On 4 8:41PM ; [facility] Note: Responsible Observer: (HRG) IG% 0.2 % (0.0 - 0.5) None Last Documented On 4 8:41PM ; [facility] Note: Responsible Observer: (HRG) LYMPH# 2.54 th/uL (1.00 - 4.80) None Last Documented On 4 8:41PM ; [facility] Note: Responsible Observer: (HRG) LYMPH% 48.7 % (14.0 - 45.0) H (High) Last Documented On 4 8:41PM ; [facility] Note: Responsible Observer: (HRG) MCH 28.7 pg (25.0 - 35.0) None Last Documented On 4 8:41PM ; [facility] Note: Responsible Observer: (HRG) MCHC 31.6 g/dL (31.0 - 36.0) None Last Documented On 4 8:41PM ; [facility] Note: Responsible Observer: (HRG) MCV 90.8 fl (80.0 - 100) None Last Documented On 4 8:41PM ; [facility] Note: Responsible Observer: (HRG) MONO# 0.50 th/uL (0.00 - 0.80) None Last Documented On 4 8:41PM ; [facility] Note: Responsible Observer: (HRG) MONO% 9.6 % (1.0 - 10.0) None Last Documented On 4 8:41PM ; [facility] Note: Responsible Observer: (HRG) MPV 10.6 fl (6.0 - 11.0) None Last Documented On 4 8:41PM ; [facility] Note: Responsible Observer: (HRG) NEUT# 2.03 th/uL None Last Documented On 4 8:41PM ; [facility] Note: Responsible Observer: (HRG) NEUT% 38.8 % (45.0 - 76.0) L (Low) Last Documented On 4 8:41PM ; [facility] Note: Responsible Observer: (HRG) NRBC% 0.0 % (0.0 - 0.0) None Last Documented On 4 8:41PM ; [facility] Note: Responsible Observer: (HRG) PLT 265 th/uL (150 - 400) None Last Documented On 4 8:41PM ; [facility] Note: Responsible Observer: (HRG) RBC 5.19 mil/uL (4.50 - 5.90) None Last Documented On 4 8:41PM ; [facility] Note: Responsible Observer: (HRG) RDW 14.1 % (11.0 - 16.0) None Last Documented On 4 8:41PM ; [facility] Note: Responsible Observer: (HRG) WBC 5.2 th/uL (4.5 - 11.0) None Last Documented On 4 8:41PM ; [facility] Note: Responsible Observer: (HRG) CMP [facility] Ordered by SALMA Arias MD on 06/19/2023 [address] [facility], [place], [address] Collected: 06/19/2023 Report ed: 06/19/2023 13:23 tel:[phone] Last Documented On 4 11:13PM ; [facility] Reviewed by SALMA WEINBERG MD on 07/14/2023; All test results are final unless otherwise noted. A/G RATIO 1.3 (1.1 - 2.2) None Last Documented On 4 8:41PM ; [facility] Note: eGFR INTERPRETATION AGE AVG GFR 2 0-29 116 ml/min/1.73 m2 30-39 107 ml/min/1.73 m2 40-49 99 ml/min/1.73 m2 50-59 93 ml/min/1.73 m2 60-69 85 ml/min/1.73 m2 70+ 75 ml/min/1.73 m2 Chronic Kidney Disease-Less than 60 ml/min Kidney Failure-Less than 15 ml/min eGFR not calculated on patients <18 due to calculation differences. Please see the website below for the pediatric GFR calculator. https://www.kidney.org/professionals/kdoqi/gfr_calculatorp edResponsible Observer: (PA) AGE 67 YEARS None Last Documented On 4 8:41PM ; [facility] Note: Responsible Observer: (PA) ALBUMIN 4.0 g/dL (3.4 - 4.8) None Last Documented On 4 8:41PM ; [facility] Note: Responsible Observer: (PA) ALK PHOS 83 IU/L (40 - 150) None Last Documented On 4 8:41PM ; [facility] Note: Responsible Observer: (PA) ALT (SGPT) 24 IU/L (0 - 55) None Last Documented On 4 8:41PM ; [facility] Note: Responsible Observer: (PA) ANION GAP 14.1 mmol/L (8.0 - 16.0) None Last Documented On 4 8:41PM ; [facility] Note: Responsible Observer: (PA) AST (SGOT) 17 IU/L (5 - 34) None Last Documented On 4 8:41PM ; [facility] Note: Responsible Observer: (PA) BILIRUBIN TOT 0.6 mg/dL (0.2 - 1.0) None Last Documented On 4 8:41PM ; [facility] Note: Responsible Observer: (PA) BUN 15 mg/dL (9 - 20) None Last Documented On 4 8:41PM ; [facility] Note: Responsible Observer: (PA) CALCIUM 9.3 mg/dL (8.9 - 10.0) None Last Documented On 4 8:41PM ; [facility] Note: Responsible Observer: (PA) CHLORIDE 105 mmol/L (98 - 107) None Last Documented On 4 8:41PM ; [facility] Note: Responsible Observer: (PA) CMP See Note None Last Documented On 4 8:41PM ; [facility] Note: COMPREHENSIVE METABOLIC PANELRespo nsible Observer: (PA) CREATININE 1.0 mg/dL (0.8 - 1.5) None Last Documented On 4 8:41PM ; [facility] Note: Responsible Observer: (PA) eGFR. 83 mL/min None Last Documented On 4 8:41PM ; [facility] Note: Responsible Observer: (PA) GLOBULIN 3.1 g/dl (2.0 - 4.2) None Last Documented On 4 8:41PM ; [facility] Note: Responsible Observer: (PA) GLUCOSE 102 mg/dL (70 - 105) None Last Documented On 4 8:41PM ; [facility] Note: Responsible Observer: (PA) POTASSIUM 4.1 mmol/L (3.6 - 5.0) None Last Documented On 4 8:41PM ; [facility] Note: Responsible Observer: (PA) SODIUM 143 mmol/L (137 - 145) None Last Documented On 4 8:41PM ; [facility] Note: Responsible Observer: (PA) TCO2 28.0 mmol/L (22.0 - 30.0) None Last Documented On 4 8:41PM ; [facility] Note: Responsible Observer: (PA) TOTAL PROTEIN 7.1 g/dL (6.4 - 8.3) None Last Documented On 4 8:41PM ; [facility] Note: Responsible Observer: (PA) LIPID PANEL [facility] Ordered by SALMA Arias MD on 06/19/[address] [place] [address], [phone] Collected: 06/19/2023 Report ed: 06/19/2023 13:23 tel: Last Documented On 4 11:13PM ; [facility] Reviewed by SALMA WEINBERG MD on 07/14/2023; All test results are final unless otherwise noted. CHOL/HDLC 5.5 (0.0 - 4.8) H (High) Last Documented On 4 8:41PM ; [facility] Note: Responsible Observer: (PA) CHOLESTEROL 180 mg/dL (0 - 200) None Last Documented On 4 8:41PM ; [facility] Note: Responsible Observer: (PA) HDL 33 mg/dL (29 - 67) None Last Documented On 4 8:41PM ; [facility] Note: Responsible Observer: (PA) LDL 121 mg/dL (0 - 130) None Last Documented On 4 8:41PM ; [facility] Note: Coronary Artery Risk Panel Referen ce Values Based on the recommendations of the Heart, Lung and Blood [place] (in mg/dL) Risk Levels = High Borderline Desirable Cholesterol >240 200 - 240 <200 LDL >160 130 - 159 <130 Cholesterol/HDL Ratio Male <= 4.88 Female <= 4.23Responsible Observer: (PA) LIPID PANEL See Note None Last Documented On 4 8:41PM ; [facility] Note: LIPID PANELResponsible Observer: ( PA) TRIGLYCERIDE 129 mg/dL (1 - 150) None Last Documented On 4 8:41PM ; [facility] Note: Responsible Observer: (PA) TSH [facility] Ordered by SALMA Arias MD on 06/19/[address], [place], [address] Collected: 06/19/2023 Report ed: 06/19/2023 13:53 tel: Last Documented On 4 11:13PM ; [facility] Reviewed by SALMA WEINBERG MD on 07/14/2023; All test results are final unless otherwise noted. TSH 0.8311 uIU/mL (0.3500 - 4.9400) None Last Documented On 4 8:41PM ; [facility] Note: Responsible Observer: (PA) VITAMIN B12 [facility] Ordered by SALMA Arias MD on 06/19/2023 [address] [facility], [place], [address] Collected: 06/19/2023 Report ed: 06/19/2023 13:53 tel: Last Documented On 4 11:13PM ; [facility] Reviewed by SALMA WEINBERG MD on 07/14/2023; All test results are final unless otherwise noted. VIT B12 206 pg/mL (213 - 816) L (Low) Last Documented On 4 8:41PM ; [facility] Note: B12 INDETERMINATE: LEVELS ABOVE 30 0 pg/mL FOR PATIENTS WITH INDUCED HEMATOLOGICAL DISEASE OR LEVELS ABOVE 400 pg/mL FOR PATIENTS WITH NEUROLOGICAL DISEASE ARE RARELY ASSOCIATED WITH B12 DEFICIENCY. FURTHER TESTING IS SUGGESTED FOR SYMPTOMATIC PATIENTS WITH B12 LEVELS BETWEEN 100-300 pg/mL THAT HAVE HEMATOLOGICAL ABNORMALITIES AND FOR PATIENTS WITH LEVELS 100-400 pg/mL THAT HAVE NEUROLOGICAL ABNORMALITIES.Responsible Observer: (PA) Reported Physicians [facility] Ordered by SALMA Arias MD on 06/19/2023 [address] [facility], [place], [address] Collected: 06/19/2023 Report ed: 06/19/2023 13:53 tel: Last Documented On 4 11:13PM ; [facility] Reviewed by SALMA WEINBERG MD on 07/14/2023; All test results are final unless otherwise noted. Reported Physicians See Note None Last Documented On 07/09/2023 8:41PM ; [facility] Note: Reported Physicians:Ordering: Zaida Annending: Khai ANNulting: SALMA ANN History of Present Illness History of Present Illness not supported for this document type No History of Present Illness Recorded Social History Description Last Updated AUDIT Score: was seven 06/19/2023 Last Documented On 4 4:59PM ; [facility] Consuming 5 or more drinks per day 1 or more 06/19/2023 Last Documented On 4 4:59PM ; [facility] Not recovering from substance abuse 09/2023 Last Documented On 4 4:59PM ; [facility] Number of times used recreat ional drug/ prescription drug for nonmedical reason. None 06/19/2023 Last Documented On 4 4:59PM ; [facility] Recovering alcoholic 06/19/2023 Last Documented On 4 4:59PM ; [facility] A social drinker /none now 10/17/2021 Last Documented On 2 12:25PM ; [facility] No consumption of alcohol rehab - Last Documented On 2 12:19AM ; [facility] Tobacco non-user 11/15/2020 Last Documented On 1 11:03PM ; [facility] Lives with spouse Adri 1983 ~Yuli 1994 ~ twin boy 1986 10/07/2020 Last Documented On 1 11:41AM ; [facility] Occupation [employer] YEARS 10/07/2020 Last Documented On 1 11:41AM ; [facility] No tobacco use 10/07/2020 Last Documented On 1 11:41AM ; [facility] Work history 10/07/2020 Last Documented On 1 11:41AM ; [facility] Not using drugs 10/07/2020 Last Documented On 1 11:41AM ; [facility] Smoking Status Unknown Procedures and Surgical History Includes: Procedures from 06/09/2023 through 06/08/2024 Procedures Code Diagnosis Performing Provider Service Location Service Date [facility] 48 HRS AND UP TOO 7 DAYS REVIEW AND INTERP [id number] Syncope and collapse TABBY TOUSSAINT MD [facility] OP H[facility] 07/18/2023 Last Documented On 4 12:27PM ; [facility] ECHOCARDIOGRAPHY-TRANSTHORAC W/ DOPPLER (Professional Comp., DISTINCT PROCEDURAL SERVICE DIFFERENT SITE) [id number] Abnormal electrocardiogram [ECG] [EKG], Shortness of breath YOUSEF ALEX TOUSSAINT MD [facility] 07/18/2023 Last Documented On 4 1:08PM ; [facility] CARDIO STRESS TEST INTERP ONLY [id number] Abnormal electrocardiogram [ECG] [EKG], Shortness of breath KATIANAF ALEX TOUSSAINT MD [facility] 07/18/2023 Last Documented On 4 1:08PM ; [facility] CARDIOVASCULAR STRESS ARMANI [id number] Abnormal electrocardiogram [ECG] [EKG], Shortness of breath YOUSEF ALEX TOUSSAINT MD [facility] 07/18/2023 Last Documented On 4 1:08PM ; [facility] MYOCARDIAL PERFUSIOIN IMAGING- TOMOGRAPHIC MULT STUDIES (Professional Comp.) [id number] Abnormal electrocardiogram [ECG] [EKG], Shortness of breath YOUSEF ALEX TOUSSAINT MD [facility] 07/18/2023 Last Documented On 4 1:08PM ; [facility] ELECTROCARDIAGRAM READING FEE (EKG) (DISTINCT PROCEDURAL SERVICE DIFFERENT SITE) [id number] Abnormal electrocardiogram [ECG] [EKG] MONICA RICARDO MD [facility] 07/03/2023 Last Documented On 4 12:45PM ; [facility] ELECTROCARDIOGRAM TRACING [id number] Abnormal electrocardiogram [ECG] [EKG] MONICA RICARDO MD [facility] 07/03/2023 Last Documented On 4 12:45PM ; [facility] Surgical History Last Updated History of treatment of ankle 2006 BROKE N ANKLE left 10/07/2020 Last Documented On 1 11:41AM ; [facility] Medical History Includes: Medical History in patient's chart Description Last Updated NEUROPATHY ~GERD ~allergy sh ots with Dr Yoon ( he does them himself)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 started vivitrol ~right cataract 04-04 ~left cataract 2-05/30/2022 Last Documented On 3 12:56PM ; [facility] History of colonoscopy fiberoptic was pe rformed 11/27/2021 12/04/2021 Last Documented On 2 8:04PM ; [facility] FEET IN 2010, REMOVING NEURO MAS ~07/10/20 SURGERY ON LEFT BROKEN LEG, RODS PUT IN ~LEFT RING FINGER REMOVED FALL 2019 ~BOTH EYES 1987 AND 1993 trisimus 10/07/2020 Last Documented On 1 11:41AM ; [facility] No Exercise 10/07/2020 Last Documented On 1 11:41AM ; [facility] Family History Includes: Family History in patient's chart Description Last Updated Maternal history of family history of ca ncer BREAST alive dx 201810/07/2020 Last Documented On 1 11:41AM ; [facility] Paternal history of family history of ca ncer lung smoker [place] 199110/07/2020 Last Documented On 1 11:41AM ; [facility] Paternal history of Arthritis 10/07/2020 Last Documented On 1 11:41AM ; [facility] Review of Systems Review of Systems not supported for this document type No Review of Systems Recorded Mental Status No Mental Status Recorded Functional Status No Functional Status Recorded Physical Exam Physical Exam not supported for this document type No Physical Exam Recorded Immunizations Includes: Immunizations in patient's chart Vaccine Dose # Date Site Reaction(s) Status Source COVID-19 Moderna 1 03/23/2020 Complete (Re ported) Patient Last Documented On 1 8:22AM ; [facility] COVID-19 Moderna 2 04/22/2020 Complete (Re ported) Patient Last Documented On 1 8:22AM ; [facility] COVID-19 Moderna 3 10/19/2020 Complete (Re ported) Patient Last Documented On 1 8:22AM ; [facility] Influenza (Quadrivalent) PF 0.5ml 1 11/22/2020 Complete (Reported) Patient Last Documented On 1 8:22AM ; [facility] Influenza (Quadrivalent) PF 0.5ml 2 10/17/2022 Complete (Reported) Patient Last Documented On 3 1:45PM ; [facility] Influenza (Quadrivalent)36 m o.& older PF 0.5ml (SD) 1 12/10/2014 Complete (Reported) Patie nt Last Documented On 1 8:22AM ; [facility] Influenza (Quadrivalent)36 m o.& older PF 0.5ml (SD) 2 12/07/2020 Left Arm Complete (Reported) Patient Last Documented On 3 4:39PM ; [facility] Influenza (Quadrivalent)36 mo.& older PF 0.5ml (SD) 3 01/14/2022 Left Deltoid Complete (R eported) Patient Last Documented On 3 4:39PM ; [facility] Influenza (Quadrivalent)36 m o.& older PF 0.5ml (SD) 4 10/17/2022 Complete (Reported) Patie nt Last Documented On 3 1:44PM ; [facility] Influenza (Trivalent) split virus-PF (ID) 1 01/29/2014 Complete (Reported) Patient Last Documented On 1 8:22AM ; [facility] Influenza-( TRIVALENT PF) 3 yr & Older 1 01/03/2016 Left Arm Complete (Reported) Patient Last Documented On 1 8:22AM ; [facility] Influenza, injectable, MDCK, preservative free, quadrivalent 1 11/20/2018 Left Arm Comp lete (Reported) Patient Last Documented On 1 8:22AM ; [facility] Novel Influenza - H1N1 1 12/11/2008 Comple te (Reported) Patient Last Documented On 1 8:22AM ; [facility] Prevnar 20 1 08/23/2022 Left Deltoid Compl ete (Reported) Patient Last Documented On 08/24/2022 10:21AM ; [facility] Note: PATIENT WAS GIVEN THIS IMMUNIZATIO N AT [facility] IN [place], [place]. Shingrix (Shingles) 1 01/24/2020 Right Arm Complete (Reported) Patient Last Documented On 1 8:22AM ; [facility] Shingrix (Shingles) 2 06/29/2020 Right Arm Complet e (Reported) Patient Last Documented On 1 8:22AM ; [facility] Tdap (Boostrix) 1 09/23/2009 Complete (Rep orted) Patient Last Documented On 8:22AM ; [facility] Allergies Includes: Active, inactive, and resolved Allergies No Known Allergies Encounters Includes: Encounters from 06/09/2023 through 06/08/2024 Encounter Provider Location Date Check-In Time Check-Out Time Diagnosis ECHOCARDIOGRAM TABBY TOUSSAINT MD [facility] 024 1:00PM 11:51AM [facility] TABBY TOUSSAINT MD [facility] 024 10:49AM 1:22PM HOLTOR MONITOR TABBY TOUSSAINT MD [facility] 024 4:00PM 4:11PM [facility] NEW PATIENT EXAM- ADULT MONICA RICARDO MD [facility] 024 2:53PM 3:48PM RX ISSUE/REFILL SALMA ESCOBAR MD 024 06/19/2023 2:32PM 06/19/2023 11:59PM CHECK UP SALMA ESCOBAR MD [facility] 024 11:18AM 12:21PM Gerd,Neuropa thy,Shortnes s of Breath,Alcoh ol Dependence Insurance Includes: Active Insurance Policies Plan Name Member ID Group # Subscriber Relationship Effect bruno Dates 1 - [facility] [id number] EMMA ROBERT Self Clinical Notes Includes: Signed Clinical Notes starting from 03/02/2022 * Progress note Date Encounter Last Documented by 06/19/2023 CHECK UP Last documented on 06/23/2023; 4:59 PM, SALMA ESCOBAR MD; [facility] Active Problems & Conditions - F10.21 - Alcohol Dependence in Remission - J30.9 - Allergic Rhinitis - J45.998 - Asthma - Sees allergy/immunology in [place] - M70.22 - Bursitis Olecranon Left - K21.9 - Gerd - G60.3 - Neuropathy Chief Complaint The Chief Complaint is: Check up, he has been having a hard time with SOB, 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 History of Present Illness EMMA ROBERT is a 67 year old male. Source of patient information was patient - Allergy list reviewed - Medication list reviewed - Feeling fine - Dyspnea - No cough - No chest pain or discomfort - No abdominal pain Emma Robert is a pleasant 67-year-old male who presents to our clinic for a check-up. The patient has been struggling with shortness of breath recently. He denies any issues in walking down to the [place]. He used Trilogy Ellipta 100-62.5-25 mcg/act inhaler but feels it provides minimal relief. Upon consultation with his curing oven attendant, he was advised to seek evaluation from Cardiology. He is not having chest pain, but his endurance has decreased significantly in the last couple of months. He also gets tired easily. He expresses a desire to revisit the option of receiving Vivitrol injections. His last injection was in 10/2021. Of note, he has a history of alcohol dependence in remission Additionally, he acknowledges consuming Fireball shooters after work and experiencing a loss of interest and mood swings. Furthermore, he reports experiencing a burning sensation in his feet during the afternoon. His blood pressure is slightly low in the clinic today at 100/66. He denies any chest pain, palpitations. He is eating well and sleeping well at night. He has lost 15 lbs since his last visit which was in 12/2022, and he currently weighs 219. His bowels are moving well. He also has a history of GERD for which he is taking omeprazole 20 mg BID with benefit. He updated me that he has quit taking his anxiety medications hydroxyzine and chlordiazepoxide well over a year ago. He is up-to-date with a colonoscopy. His last colonoscopy was performed in 11/2021 and a repeat colonoscopy is recommended to be performed in 11/2024. Current Medication - Albuterol Sulfate HFA 108 (90 Base) MCG/ACT Inhalation Aerosol Solution 30 days, 0 refills - DULoxetine HCl 60 MG Oral Capsule Delayed Release Particles TAKE 1 CAPSULE BY MOUTH TWICE A DAY, 90 days, 0 refills - Fluticasone Propionate 50 MCG/ACT Nasal Suspension USE 2 SPRAYS IN EACH NOSTRIL EVERY DAY, 90 days, 0 refills - Omeprazole 40 MG Oral Capsule Delayed Release TAKE 1 CAPSULE BY MOUTH EVERY DAY, 90 days, 0 refills - Pregabalin 100 MG Oral Capsule TAKE 1 CAPSULE BY MOUTH TWICE A DAY, 30 days, 2 refills - QUEtiapine Fumarate 200 MG Oral Tablet TAKE 1/2 TO 1 TABLET BY MOUTH EVERY DAY AT BEDTIME, 90 days, 0 refills - Trelegy Ellipta 100-62.5-25 MCG/ACT Inhalation Aerosol Powder Breath Activated From allergy, [facility] Imm. group in [place], 0 days, 0 refills Past Medical/Surgical History Other: Diagnostic fiberoptic colonoscopy 11/27/2021 FEET IN 2010, REMOVING NEUROMAS 07/10/20 SURGERY ON LEFT BROKEN LEG, RODS PUT IN LEFT RING FINGER REMOVED FALL 2019 BOTH EYES 1987 AND 1993 trisimus. 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 started vivitrol right cataract 04-04 left cataract 04-04. Procedural: - Procedure of ankle 2005 BROKEN ANKLE left Social History Tobacco use: Tobacco non-user. Alcohol: A social drinker /none now, six or more drinks per day 5 or more drinks per day 1 or more, recovering alcoholic, and AUDIT alcohol use disorders identification test AUDIT Score: was seven. Drug Use: Not recovering from substance abuse. Number of times used recreational drug/ prescription drug for nonmedical reason. None. Housing And Economic Circumstances: Lives with spouse Adri 1983 Yuli 1994 twin boy 1985. 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 Allergies - No Known Allergies Family History Paternal: Arthritis Cancer lung smoker [place] 1991 Maternal: Cancer BREAST alive dx 2018 Review Of Systems Systemic: No edema. Head: No headache. Cardiovascular: No chest pain or discomfort. Pulmonary: Shortness of breath and expressed as feeling short of breath. Neurological: Dizziness. No ataxia. Psychological: No fear of falling. Past Medical: No fall in the past 6 months. Physical Findings - Vitals taken 06/19/2023 11:28 am BP-Sitting L 100/66 mmHg 100 - 120/60 - 80 BP Cuff Size Regular Pulse Rate-Sitting 95 bpm 50 - 100 Respiration Rate 19 per min 18 - 26 Temp-Temporal 97.4 F 96 - 101 Height 72 in 64 - 74 Weight 219 lbs 123 - 215 Body Mass Index 29.7 kg/m2 Oxygen Saturation 98 % 93 - 100 General Appearance: - Alert. - Well developed. - Well nourished. - In no acute distress. Ears: Right Ear: Tympanic Membrane: - Normal. Left Ear: Tympanic Membrane: - Normal. Lymph Nodes: - Normal. Lungs: - Clear to auscultation. Cardiovascular: Heart Rate And Rhythm: - Normal. Murmurs: - No murmurs were heard. Edema: - Not present. Abdomen: Palpation: - No direct tenderness in the abdomen. Neurological: - Memory was unimpaired. - Judgement was not impaired. Sensation: - Monofilament wire test showed decreased sensation of right foot. - Monofilament wire test showed decreased sensation of left foot to above ankle chang. Psychiatric: - Mood was calm. Skin: - Normal. - Mucous membranes were not dry. 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 - Medication list reviewed. - Education and instructions. - Clinical summary provided to patient. - Explanation of plan: patient/guardian states understanding of and agreement to treatment options and plan. Plan StartCited - Other *JUANCHO please order vivitrol for him EndCited StartCited - Shortness of breath Referral: Dispatcher Clerk Instructions: Referred to [facility]. EndCited Ordered blood work. Ordered a Vivitrol injection. Made aware that alcoholism increases neuropathy. Referred to [facility]. You will get a call to set up an appointment. Refills on medication are provided to the patient. We discussed lifestyle recommendations, including the importance of a healthy diet and exercising as tolerated. Maintain a healthy diet. Encouraged to walk in the form of exercise. Stay well hydrated. Have more water. Follow up as scheduled. Estrella Dominguez, scribing the following service on behalf of Dr. Antoni Chung on 06/19/2023. This note has been reviewed by the provider before submitting. Practice Management Use of tobacco assessment performed. Health Reminders - Assess BMI satisfied 06/19/2023. - Assess Need for CT Lung Screen satisfied 06/19/2023. - Assess Tobacco Use satisfied 06/19/2023. - Colorectal Cancer Screening satisfied 11/27/2021. User Defined 25 Patient education about home safety plans for prevention of falls: Patient completed a Fall risk assesment and was provided fall risk education materials.
--- OUTSIDE RECORDS SUMMARY | 2024-06-08 11:37 | XMS_ITS | Clinical Summary ---
Author Organization [facility] Address [address] [place] [address] Phone Care Team Providers Care Weld Inspector Name Role Phone SALMA ESCOBAR MD Primary Care Provider [phone] Reason for Visit and Chief Complaint HOLTOR MONITOR Problems Includes: Problems addressed during this encounter and other active Problems All Visits Onset Date Resolved Date Provider Condition S tatus Asthma 12/20/2022 RAJANI Stratton PA-C Active Last Documented On 12/20/2022 8:26AM ; [facility] Note: Sees allergy/immunology in [place] Bursitis Olecranon Left 05/30/2022 SALMA ESCOBAR MD Active Last Documented On 05/30/2022 8:55AM ; [facility] Note: Unchanged Alcohol Dependence in Remission 01/09/2021 LUIS MANUEL ODELL DO Active Last Documented On 9:01AM ; [facility] Allergic Rhinitis 01/09/2021 LUIS MANUEL ODELL DO Active Last Documented On 9:01AM ; [facility] Gerd 10/07/2020 SALMA ESCOBAR MD Act bruno Last Documented On 9:20AM ; [facility] Note: Unchanged Neuropathy 10/07/2020 SALMA ESCOBAR MD Act bruno Last Documented On 9:20AM ; [facility] Note: Unchanged Plan of Treatment No Plan [...] On 06/26/2023 2:47PM By KAVIN POWELL ; [facility] BD Luer-Porsha Syringe 25G X 5/ 8 3 ML Miscellaneous 06/26/2023 Provider: SALMA Mi Diagnosis: USE ONE SYRINGE WEEKLY FOR B12 INJ Last Documented On 06/26/2023 2:47PM By KAVIN POWELL ; [facility] QUEtiapine Fumarate 200 MG Oral Tablet 06/12/2023 Pr ovider: SALMA ESCOBAR MD Diagnosis: TAKE 1/2 TO 1 TABLET BY MOUTH EVERY DAY AT BEDTI MI Last Documented On 6:07PM By SALMA ESCOBAR MD ; [facility] DULoxetine HCl 60 MG Oral Ca psule Delayed Release Particles 06/12/2023 Provider: SALMA Mi Diagnosis: TAKE 1 CAPSULE BY MOUTH TWICE A DAY Last Documented On 6:07PM By SALMA ESCOBAR MD ; [facility] Pregabalin 100 MG Oral Capsule 06/11/2023 Provider: SALMA ESCOBAR MD Diagnosis: TAKE 1 CAPSULE BY MOUTH TWICE A DAY Last Documented On 10:52PM By SALMA ESCOBAR MD ; [facility] Omeprazole 40 MG Oral Capsul e Delayed Release 05/16/2023 Provider: CYRUS STARKEY ADOLESCENT COUNSELOR- FPA, SHIRT CLOSER-BC Diagnosis: TAKE 1 CAPSULE BY MOUTH EVERY DAY Last Documented On 05/16/2023 1:48PM By Carol POWELL ; [facility] Trelegy Ellipta 100-62.5-25 MCG/ACT Inhalation Aerosol Powder Breath Activated 12/19/2022 Provider: Diagnosis: From allergy, [facility]tha Imm. group in [place] Last Documented On 12/19/2022 3:51PM By KAVIN POWELL ; [facility] Albuterol Sulfate HFA 108 (9 0 Base) MCG/ACT Inhalation Aerosol Solution 05/28/2022 Provider: Diagnosis: Last Documented On 05/30/2022 8:26AM By Carol POWELL ; [facility] Fluticasone Propionate 50 MC G/ACT Nasal Suspension 02/19/2021 Provider: SALMA Mi Diagnosis: USE 2 SPRAYS IN EACH NOSTRIL EVERY DAY Last Documented On 02/19/2021 6:22PM By Carol POWELL ; [facility] Medications Administered Includes: Administered Medications from this [...] UP TOO 7 DAYS REVIEW AND INTERP [id number] Syncope and collapse TABBY TOUSSAINT MD [facility] 07/18/2023 Last Documented On 12:27PM ; [facility] Medical History Includes: Medical History addressed [...] Location Date Check-In Time Check-Out Time Diagnosis HOLTOR MONITOR TABBY TOUSSAINT MD [facility] 07/03/19 4:00PM 4:11PM Insurance Includes: Active Insurance Policies Plan Name Member ID Group # Subscriber Relationship Effect bruno Dates 1 - [facility] [id number] EMMA ROBERT Self Clinical Notes Includes: Clinical Notes from this encounter No Clinical Notes Recorded
--- OUTSIDE RECORDS SUMMARY | 2024-06-08 11:37 | XMS_ITS ---
Author Organization [facility] [place] ([phone]) Address [address] [place] [address] Care Team Providers Care Nanofabrication Specialist Name Role Phone Juliet Corrales Primary Care Provider Racheal Monsivais Unavailable [phone] Allergies No Known Allergies REASON FOR VISIT ARC - Previously on allergen immunotherapy under Dr. Yoon. Stopped in November 2021, currently on SCIT at our office since 09/2022, reaching MM 03/2023. Last SCIT injection 01/2024., Chronic cough and subjective wheezing. Failed Breo d/t but hoarseness. Advair HFA ordered, but never started. Here in 12/2022 with wheezing, started Trelegy with 7 days PO steroids. Seen again in 01/2023, with instructions to restart inhalers and follow-up in 1 month. Did not follow-up until 11/2023, again off inhalers. Restarted at that time and presents today no longer on any inhalers for 3-4 months. Only used Trelegy sporadically., Evaluated by Dr. Hernández today. Slated for follow-up 08/05/24., DAYANA - No longer on CPAP., Covid-19 and strep in past [address] 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 He reports no need for chemo or radiation at this time, monitored with PET scans every 3-6 months. Medications Medication SIG (Take, Route, Frequency, Duration) Notes Start Date End Date Status FLUTICASONE NASAL 50 mcg/inh 2 spray(s) in each nostril BID for 30 day(s) Not-Taking EPIPEN 2-LISA 0.3 mg as directed intramuscularly once for 30 days Not-Taking QUETIAPINE 200 mg 1 tab(s) orally 2 times a day Not-Taking DULOXETINE 60 mg 2 tablets orally once a day Not-Taking PREGABALIN 100 mg 1 cap(s) orally 2 times a day Not-Taking SIT (TRADITIONAL) variable per schedule SC per schedule for to be determined Active TRELEGY ELLIPTA 200 mcg-62.5 mcg-25 mcg/inh 1 puff(s) inhaled once a day for 30 days Not-Taking Trelegy Ellipta 200 MCG-62.5 MCG-25 MCG/INH 1 PUFF(S) INHALED ONCE A DAY for 30 DAYS *Please review and pick correct strength-formula tion from [employer] options. If intended option is not shown, discontinue and re-order from Quick Search* 02/06/2023 Not-Taking Trelegy Ellipta 100-62.5-25 MCG/ACT 1 puff Inhalation Once a day for 30 days Active AMPARO 24 HOUR ALLERGY 180 mg 1 tab(s) orally once a day Active Pregabalin 100 MG 1 cap(s) orally 2 times a day Active NASAL WASHES N/A as directed intranasally as needed for 30 Active EPIPEN 2-LISA 0.3 mg as directed intramuscularly once for 30 days Active QUEtiapine Fumarate 200 MG 1 tab(s) orally 2 times a day Active DULoxetine HCl 60 MG 2 tablets orally once a day Active ALBUTEROL (EQV-PROVENTIL HFA) 90 mcg/inh 2 puff(s) inhaled Q4-6 hours, PRN and per the asthma action plan for 30 day(s) Active FLUTICASONE NASAL 50 mcg/inh 2 spray(s) in each nostril BID for 30 day(s) Active Omeprazole 40 MG 1 cap(s) orally once a day Active AEROCHAMBER MDI SPACER - MOUTHPIECE (ADULT) N/A As directed PO Per asthma action plan for 30 day(s) Active Amparo Allergy 180 MG 1 tab(s) orally once a day Active OMEPRAZOLE 40 mg 1 cap(s) orally once a day Active EpiPen 2-Lisa 0.3 mg as directed intramuscularly once for 30 days Active Cyanocobalamin 1000 MCG/ML 1 mL Injection Active Fluticasone Propionate 50 MCG/ACT 2 spray(s) in each nostril BID for 30 day(s) Not-Taking ALBUTEROL (EQV-PROVENTIL HFA) 90 MCG/INH USE 2 PUFF(S) INHALED EVERY 4 TO 6 HOURS NEEDED AND PER THE ASTHMA ACTION PLAN 30 DAY(S) for 30 *Please review for potential replacement for e-prescription and drug interaction check* Active Social History Tobacco Use: Social History Observation Description Date Details (start date - stop date) Never Smoker NA - NA Sex Assigned At : Social History Observation Description Sex Assigned At Male Tobacco Control (Standard) Question Answer Notes Tobacco use: Nonsmoker AUDIT-C (Standard) Question Answer Notes Did you have a drink containing alcohol in the p ast year? No Points 0 Interpretation Negative Vital Signs Blood pressure systolic 128 mm Hg 05/21/19 25 Blood pressure diastolic 81 mm Hg 025 Height 72 in 05/20/2024 Weight 220.6 lbs 05/20/2024 BMI 29.92 kg/m2 05/20/2024 Oximetry 96 % 05/20/2024 Encounters Encounter Location Date Provider Diagnosis [facility] [address] [address] 05/20/2024 Racheal Burns Chronic cough R05.3 ; Wheezing R06.2 ; Allergic rhinitis due to pollen J30.1 ; Allergic rhinitis due to animal (cat) (dog) hair and dander J30.81 ; Other allergic rhinitis J30.89 ; Other chronic allergic conjunctivitis H10.45 ; Gastro-esophageal reflux disease without esophagitis K21.9 ; Other diseases of vocal cords J38.3 and Elevated blood-pressure reading, without diagnosis of hypertension R03.0 Assessments Encounter Date Diagnosis (ICD Code) Assessment Notes Treatment Notes Treatment Clinical Notes Section Notes 05/20/2024 Chronic cough (ICD-10 - R05.3) Cough is likely multifactorial, allergies/GERD/nathan ctive airways. Patient reports reflux is stable on omeprazole at this time. -See plan above -Follow-up with GI if no improvement in symptoms 05/20/2024 Wheezing (ICD-10 - R06.2) Historically, Kaleb presented in 05/2022 for wheezing and constant cough for past in addition to more frequent viral URIs since stopping allergen immunotherapy. Previously described wheezing upon inspiration and exhalation and reports feeling the wheeze in the lower airways. No episodes of wheezing or coughing since starting Breo, but c/o hoarseness that began shortly after Breo initiation. Intial Post bronchodilator test not c/w ATS criteria for asthma, with 6% reversibility and 230cc increase in FEV1, c/w RAD. Advair HFA was prescribed in 06/2022. In 12/2022, patient presented wtih bilateral wheezing noted with spirometry showing reduced FVC, borderline FEV1, FEV1%. 700cc decrease in FEV1 and 500cc decrease in FVC compared to 08/2022 spirometry. It was determined patient never started Advair HFA despite reporting he had. Treated with PO steroids x 7 days. After controller inhalers were restarted on 01/02/23, repeat spirometry showed FEV1 increased by 350cc and FVC increased by 420cc compared to prior spirometry on 12/19/22. Spirometry in 01/2023 attempted showing normal FVC, FEV1, FEV1%. FVL shows scalloping on end-exhalation. Inspiratory blunting noted. Normal lung age. Compared to spirometry 01/02/23, FVC increased by 160cc and FEV1 increased by 320cc. Of note, patient has very poor spirometry technique and overall poor understanding of disease process and inhaler usage despite re-education at each visit. AAP have been formulated and reviewed at length in addition to proper demonstration and correct usage of inhalers at each visit. - At visit in 01/2023, Trelegy increased to high-dose due to occasional SOB with instructions to follow-up in 2 months. Did not follow-up and stopped all inhalers I don't think I have asthma. Lost to follow-up until 11/2023, again off inhalers. Seen next today, again off inhalers. ACT 25 today with no interval BERNARDA use. - Spirometry last visit showed reduced FVC suggesting restriction, though TLC not measured. Borderline FEV1 and normal FEV%. FVC decreased by 290cc and FEV1 decreased by 300cc compared to 01/2023 spirometry. FVL shows scalloping on end-exhalation and inspiratory blunting. Advanced lung age. - Spirometry deferred today due to recent right colectomy and a recommended 8-week clearance. Will attempt at next office visit if medically cleared, or receive results from Dr. Hernández's office. -Chest X-ray ordered in 12/2022- normal. - Strongly encouraged to restart controller inhaler given historical wheezing, worsening spirometry and flare Fall/Winter 2022 requiring OCS and antibiotics. Trelegy 100 to be started for 1 month. Samples given in office. - Continue BERNARDA prn with spacer. - AAP reviewed, again. - Kaleb continues to demonstrate poor understanding of disease process. Pulmonology evaluation recommending in 2022 and last visit in 11/2023. Per Kaleb, he was evaluated by Dr. Hernández today, slated for follow-up on 08/05/24. Will request records. - Reports normal cardiac workup - Again, educated Kaleb SCIT must be stopped for any lower airway problems of BERNARDA use within 24 hours. He has been off SCIT since 01/2024 - see below. - Follow-up in 1 month for E&M, repeat spirometry 05/20/2024 Allergic rhinitis due to pollen (ICD-10 - J30.1) Kaleb clearly suffers from atopic disease based upon our skin testing and clinical history. Accordingly, we have introduced a new, aggressive medication regimen, discussed nasal washes and allergy-specific avoidance measures. Previously on SCIT, denies large, local reactions. Last SCIT injection 01/2024. - At this time, Kaleb's vials are currently . As we are not able to assess his lung function and he returns again off inhalers, recommend awaiting to restart SCIT until we can obtain spirometry or full PFTs from Dr. Camacho office. -Continue medications as listed above. Will need to premedicate with Amparo. Last visit, patient reported not knowing he was supposed to premedicate. Again, he was educated at length. -Keep AIE on hand 2 hours after SCIT. -Follow-up in 4 weeks for SCIT 05/20/2024 Allergic rhinitis due to animal (cat) (dog) hair and dander (ICD-10 - J30.81) Follow allergen avoidance, meds and restart SCIT as an adjunctive treatment to current regimen 05/20/2024 Other allergic rhinitis (ICD-10 - J30.89) Follow allergen avoidance, meds and restart SCIT as an adjunctive treatment to current regimen 05/20/2024 Other chronic allergic conjunctivitis (ICD-10 - H10.45) Given ocular signs and symptoms, I encouraged allergy avoidance measures and meds as above. If symptoms persist, consider adding additional medications including intraocular antihistamine/mast cell stabilizer, PRN and restart SCIT as an adjunctive measure 05/20/2024 Gastro-esophageal reflux disease without esophagitis (ICD-10 - K21.9) Kaleb reports history of acid reflux and episodes of choking, stable since starting omeprazole. -Continue omeprazole and continue to follow-up with GI 05/20/2024 Other diseases of vocal cords (ICD-10 - J38.3) Prior complaints of wheezing on inhalation and exhalation, though reported improvement after starting Breo. Additionally, he reported he felt he could not get a deep breathe in during spirometry. Inspiratory blunting noted on initial spirometry and repeat spirometry. Overall has much difficulty with spirometry. -Handout given for VCD at initial visit. Encouraged to continue exercises. -Consider referral to speech therapy if no improvement 05/20/2024 Elevated blood-pressure reading, without diagnosis of hypertension (ICD-10 - R03.0) BP elevated today without symptoms of urgency or emergency. Continue serial checks and follow-up with PCP 05/20/2024 Other Plan Of Treatment Medication Medication Name Sig Start Date Stop Date Notes SIT (TRADITIONAL) variable per schedule SC per schedule for to be determined Trelegy Ellipta 100-62.5-25 MCG/ACT 1 puff Inhalation Once a day for 30 days AMPARO 24 HOUR ALLERGY 180 mg 1 tab(s) orally once a day NASAL WASHES N/A as directed intranas ally as needed for 30 EPIPEN 2-LISA 0.3 mg as directed intramus cularly once for 30 days ALBUTEROL (EQV-PROVENTIL HFA) 90 mcg/inh 2 puff(s) inhaled Q4-6 hours, PRN and per the asthma action plan for 30 day(s) FLUTICASONE NASAL 50 mcg/inh 2 spray(s) in each nostril BID for 30 day(s) AEROCHAMBER MDI SPACER - MOUTHPIECE (ADULT) N/A As directed PO Per asthma action plan for 30 day(s) OMEPRAZOLE 40 mg 1 cap(s) orally once a day Treatment Notes Assessment Notes Chronic cough Cough is likely multifactorial, allergies/GERD/reactive airways. Patient reports reflux is stable on omeprazole at this time. -See plan above -Follow-up with GI if no improvement in symptoms Wheezing Historically, Kaleb presented in 05/2022 for wheezing and constant cough for past in addition to more frequent viral URIs since stopping allergen immunotherapy. Previously described wheezing upon inspiration and exhalation and reports feeling the wheeze in the lower airways. No episodes of wheezing or coughing since starting Breo, but c/o hoarseness that began shortly after Breo initiation. Intial Post bronchodilator test not c/w ATS criteria for asthma, with 6% reversibility and 230cc increase in FEV1, c/w RAD. Advair HFA was prescribed in 06/2022. In 12/2022, patient presented wtih bilateral wheezing noted with spirometry showing reduced FVC, borderline FEV1, FEV1%. 700cc decrease in FEV1 and 500cc decrease in FVC compared to 08/2022 spirometry. It was determined patient never started Advair HFA despite reporting he had. Treated with PO steroids x 7 days. After controller inhalers were restarted on 01/02/23, repeat spirometry showed FEV1 increased by 350cc and FVC increased by 420cc compared to prior spirometry on 12/19/22. Spirometry in 01/2023 attempted showing normal FVC, FEV1, FEV1%. FVL shows scalloping on end-exhalation. Inspiratory blunting noted. Normal lung age. Compared to spirometry 01/02/23, FVC increased by 160cc and FEV1 increased by 320cc. Of note, patient has very poor spirometry technique and overall poor understanding of disease process and inhaler usage despite re-education at each visit. AAP have been formulated and reviewed at length in addition to proper demonstration and correct usage of inhalers at each visit. - At visit in 01/2023, Trelegy increased to high-dose due to occasional SOB with instructions to follow-up in 2 months. Did not follow-up and stopped all inhalers I don't think I have asthma. Lost to follow-up until 11/2023, again off inhalers. Seen next today, again off inhalers. ACT 25 today with no interval BERNARDA use. - Spirometry last visit showed reduced FVC suggesting restriction, though TLC not measured. Borderline FEV1 and normal FEV%. FVC decreased by 290cc and FEV1 decreased by 300cc compared to 01/2023 spirometry. FVL shows scalloping on end-exhalation and inspiratory blunting. Advanced lung age. - Spirometry deferred today due to recent right colectomy and a recommended 8-week clearance. Will attempt at next office visit if medically cleared, or receive results from Dr. Hernández's office. -Chest X-ray ordered in 12/2022- normal. - Strongly encouraged to restart controller inhaler given historical wheezing, worsening spirometry and flare Fall/Winter 2022 requiring OCS and antibiotics. Trelegy 100 to be started for 1 month. Samples given in office. - Continue BERNARDA prn with spacer. - AAP reviewed, again. - Kaleb continues to demonstrate poor understanding of disease process. Pulmonology evaluation recommending in 2022 and last visit in 11/2023. Per Kaleb, he was evaluated by Dr. Hernández today, slated for follow-up on 08/05/24. Will request records. - Reports normal cardiac workup - Again, educated Kaleb SCIT must be stopped for any lower airway problems of BERNARDA use within 24 hours. He has been off SCIT since 01/2024 - see below. - Follow-up in 1 month for E&M, repeat spirometry Allergic rhinitis due to pollen Kaleb clearly suffers from atopic disease based upon our skin testing and clinical history. Accordingly, we have introduced a new, aggressive medication regimen, discussed nasal washes and allergy-specific avoidance measures. Previously on SCIT, denies large, local reactions. Last SCIT injection 01/2024. - At this time, Kaleb's vials are currently . As we are not able to assess his lung function and he returns again off inhalers, recommend awaiting to restart SCIT until we can obtain spirometry or full PFTs from Dr. Camacho office. -Continue medications as listed above. Will need to premedicate with Amparo. Last visit, patient reported not knowing he was supposed to premedicate. Again, he was educated at length. -Keep AIE on hand 2 hours after SCIT. -Follow-up in 4 weeks for SCIT Allergic rhinitis due to ani mal (cat) (dog) hair and dander Follow allergen avoidance, meds and restart SCIT as an adjunctive treatment to current regimen Other allergic rhinitis Follow allergen avoidance, meds and restart SCIT as an adjunctive treatment to current regimen Other chronic allergic conjunctivitis Gi karla ocular signs and symptoms, I encouraged allergy avoidance measures and meds as above. If symptoms persist, consider adding additional medications including intraocular antihistamine/mast cell stabilizer, PRN and restart SCIT as an adjunctive measure Gastro-esophageal reflux dis ease without esophagitis Kaleb reports history of acid reflux and episodes of choking, stable since starting omeprazole. -Continue omeprazole and continue to follow-up with GI Other diseases of vocal cords Prior complaints of wheezing on inhalation and exhalation, though reported improvement after starting Breo. Additionally, he reported he felt he could not get a deep breathe in during spirometry. Inspiratory blunting noted on initial spirometry and repeat spirometry. Overall has much difficulty with spirometry. -Handout given for VCD at initial visit. Encouraged to continue exercises. -Consider referral to speech therapy if no improvement Elevated blood-pressure read ing, without diagnosis of hypertension BP elevated today without symptoms of urgency or emergency. Continue serial checks and follow-up with PCP Next Appt Details Follow Up: 4 Weeks, Reason: Evaluation and Management,SCIT,Spirometry/Flow Volume Loop Provider Name:Edie ceja, 06/29/2024 02:45:00 PM, [address] [facility], [address], [address], Procedure Notes * Category Sub-Category Detail Notes Record Review Outside Records I spent: 15 nestor tional minutes obtaining and reviewing outside records related to this patient during this office visit Time (Provider Encounter) Time Attestation This follow-up encounter took more than:: more than 40 minutes ([id number]) Tasks performed during this encounter include:: taking a history, reviewing the patient's review of systems, performing the physical examnation, reviewing outside medical records, counseling the patient on their diagnoses and chronic management, discussed risks, benefits and alternatives to care, documenting in the EHR Progress Notes * Kaleb ROBERTDOB:1955 ( 68 yo M)Acc No.[id number]:05/20/2024 Progress Notes Patient: Kaleb SHELTON Provider: ROCCO Villafuerte :1955 A ge:68 Y S ex:Male Date:05/20/2024 Address:[address] [place] [address] , [facility], [id number] Pcp:Juliet Corrales Subjective: * Chief Complaints: * A RC - Previously on allergen immunotherapy under Dr. Yoon. Stopped in November 2021, currently on SCIT at our office since 09/2022, reaching MM 03/2023. Last SCIT injection 01/2024.Chronic cough and subjective wheezing. Failed Breo d/t but hoarseness. Advair HFA ordered, but never started. Here in 12/2022 with wheezing, started Trelegy with 7 days PO steroids. Seen again in 01/2023, with instructions to restart inhalers and follow-up in 1 month. Did not follow-up until 11/2023, again off inhalers. Restarted at that time and presents today no longer on any inhalers for 3-4 months. Only used Trelegy sporadically.Evaluated by Dr. Hernández today. Slated for follow-up 08/05/24.DAYANA - No longer on CPAP.Covid-19 and strep in past [address] Barrett in [place], [place] managingHistory of appendiceal adenocarcinoma status post a laparoscopic appendectomy performed in December 2023, status post a single-site laparoscopic right colectomy on 04/01/24 with the creation of a stapled, functional end-to-end ileocolostomy. He reports no need for chemo or radiation at this time, monitored with PET scans every 3-6 months. * HPI: * Introduction: I had the pleasure of seeing Hiwot Robert, a 68-year-old WM with a history of ARC, presumed asthma, neuropathy, alcoholism (in remission) a nd GERD, returning for interval evaluation and management. He is alone for today's visit. He was evaluated in 11/2023, with instructions to follow-up in 1 month but did not. He was evaluated in 01/2023 with instructions to follow-up in 2 months, did not follow-up until last visit in 11/2023. Since last visit, Kaleb reports appendectomy after his appendix carolyne in 12/2023. Pathology confirmed appendiceal cancer, so patient underwent right colectomy on 04/01/24. He has a weight restriction of 20lbs until he is medically cleared after 8 weeks (05/27/24). Per [facility] insights: Steffany istory of appendiceal adenocarcinoma status post a laparoscopic appendectomy performed in December 2023, status post a single-site laparoscopic right colectomy with the creation of a stapled, functional end-to-end ileocolostomy. He reports no need for chemo or radiation at this ulisses, monitored with PET scans every 3-6 months. At last visit in 11/2023, Kaleb again stopped all inhalers for several months I didn't have any symptoms so I didn't think I needed to. He was given samples of Trelegy and told to follow-up in 1 month. He presents today 6 months later again off all inhalers, reporting only using Trelegy sporadically. Hiwot giron has a long history of non-compliance and poor understanding of disease process. Pulmonology evaluation recommended in 2022 and 2023, but did not pursue until today, reporting evaluation earlier this after with Dr. Hernández, slated for follow-up on 08/05/24. Hiwot enies recent BERNARDA use. ACT 25. Steffany lopez reports full cardiac workup several months ago that was all good. He is now behind on SCIT, last injection 01/2024. Briefly, in 12/2022, Kaleb presented with cough and chest congestion for approximately 2 months. Wheezing noted on exam despite nebulizer treatment. Of note, he continued to receive SCIT with wheezing. He had been off controller inhaler since 06/2022 despite reporting he had been taking Advair HFA. Prior spirometry demonstrated reversibility, c/w reactive airway disease. Trelegy samples given in addition to 7 days PO steroids. Chest Xray ordered at that time and was normal. At visit 2 weeks later, reported fevers and diarrhea. He presented to [facility] on Friday 12/29, negative for flu and Covid. He was prescribed Augmentin, which was started on 12/30/22. Previously evaluated by PCP Dr. Corrales and was prescribed a Z-pack with minimal improvement in symptoms. At visit in 01/2023, steffany lopez reported feeling overall much better. No longer c/o wheezing and continued on Trelegy. Reported daily albuterol usage as he thought additional albuterol might help some. 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 He has attempted BERNARDA prior with no improvement. He has not attempted BERNARDA after hauling. Historically, Kaleb reported a constant, sometimes productive cough for 3 months that is causing him to awaken at night. He states he was prescribed 2 different antibiotics for his last URI and believes it has not fully resolved. Kaleb also describes wheezing upon inspiration and exhalation and states he feels the wheeze in his chest. He denies recent sinus infections, PNA, intubations. He has received his PNA vaccine. Kaleb was previously managed by Dr. Yoon at [facility] and was on allergen immunotherapy until November 2021. He believes he had skin testing done approximately 3.5-4 years ago and was on monthly maintenance for 1 year. Per Kaleb, he would get vials from Dr. Yoon's office and his neighbor would administer the monthly injections. Currently reports nasal congestion, ears plugged, productive cough, wheezing, chest congestion. Prior to allergen immunotherapy, Kaleb would have 4-5 URIs per year. This improved on immunotherapy, but became more frequent since discontinuing. Aeroallergen skin testing was completed at first visit, and was positive to multiple seasonal and perennial allergens. His treatment regimen consists of a daily Zyrtec or Amparo and Flonase. He does not recall ever taking PO steroids. He restarted SCIT via rapid build-up in 09/2022, tolerating dosing well without large, local reactions. Unfortunately, he has been off SCIT since 01/2024. Steffany lopez reports a history of acid reflux, for which he believes is stable since starting omeprazole. Prior to starting omeprazole, he was having choking due to food sticking, requiring 2-3 ER visits. Per Kaleb, he did have an endoscopy and was placed on omeprazole. Today, he reports no fevers, chills, night sweats or other constitutional symptoms. * ROS: A LLERGY: Positive p er the HPI and history, otherwise unremarkable.? S PECIAL SENSES: Positve for n one. C ONSTITUTIONAL: Positive for n one. E NT: Positive p er the HPI and history, otherwise unremarkable.? R ESPIRATORY: Positive p er the HPI and history, otherwise unremakable.? O PHTHALMOLOGY: Positive for p er the HPI and history, otherwise unremarkable. E NDOCRINOLOGY: Positive for n one. C ARDIOLOGY: Positive for n one. G ASTROENTEROLOGY: Positive for n one. U ROLOGY: Positive for n one. D ERMATOLOGY: Positive for p er the HPI and history, otherwise unremakable. N EUROLOGY: Positive for n one. H EMATOLOGY/LYMPH: Positive for n one. M USCULOSKELETAL: Positive for n one. P SYCHOLOGY: Positive for n one. A ll other review of systems per the HPI and history, otherwise unremarkable. * Medical History: * Surgical History: e lbow surgery ppendectomy * Hospitalization/Major Diagno stic Procedure: S ee Above * Family History: F ather: unknown, diagnosed with Cancer. M other: unknown, diagnosed with Cancer. * Social History: S moking Are you a : n ever smoker T obacco Control (Standard) Tobacco use: N onsmoker A MIHAELA-C (Standard) Did you have a drink containing alcohol in the past year? N o Points 0 Interpretation N egative * Medications: T akingEpiPen 2-Lisa 0.3 mg kit as directed intramuscularly once SIT (TRADITIONAL) variable see record per schedule SC per schedule Cyanocobalamin 1000 MCG/ML Solution 1 mL Injection ALBUTEROL (EQV-PROVENTIL HFA) 90 MCG/INH AEROSOL USE 2 PUFF(S) INHALED EVERY 4 TO 6 HOURS NEEDED AND PER THE ASTHMA ACTION PLAN 30 DAY(S) , Notes to Pharmacist: *Please review for potential replacement for e-prescription and drug interaction check*Omeprazole 40 MG Capsule Delayed Release 1 cap(s) orally once a day Amparo Allergy 180 MG Tablet 1 tab(s) orally once a day QUEtiapine Fumarate 200 MG Tablet 1 tab(s) orally 2 times a day DULoxetine HCl 60 MG Capsule Delayed Release Particles 2 tablets orally once a day Pregabalin 100 MG Capsule 1 cap(s) orally 2 times a day Taking EpiPen 2-Lisa 0.3 mg kit as directed intramuscularly once Taking SIT (TRADITIONAL) variable see record per schedule SC per schedule Taking Cyanocobalamin 1000 MCG/ML Solution 1 mL Injection Taking ALBUTEROL (EQV- PROVENTIL HFA) 90 MCG/INH AEROSOL USE 2 PUFF(S) INHALED EVERY 4 TO 6 HOURS NEEDED AND PER THE ASTHMA ACTION PLAN 30 DAY(S) , Notes to Pharmacist: *Please review for potential replacement for e-prescription and drug interaction check*Taking Omeprazole 40 MG Capsule Delayed Release 1 cap(s) orally once a day Taking Amparo Allergy 180 MG Tablet 1 tab(s) orally once a day Taking QUEtiapine Fumarate 200 MG Tablet 1 tab(s) orally 2 times a day Taking DULoxetine HCl 60 MG Capsule Delayed Release Particles 2 tablets orally once a day Taking Pregabalin 100 MG Capsule 1 cap(s) orally 2 times a day Not-Taking/PRNFluticasone Propionate 50 MCG/ACT Suspension 2 spray(s) in each nostril BID Trelegy Ellipta 200 MCG-62.5 MCG-25 MCG/INH POWDER 1 PUFF(S) INHALED ONCE A DAY , Notes to Pharmacist: *Please review and pick correct strength- formulation from [employer] options. If intended option is not shown, discontinue and re-order from Quick Search*Trelegy Ellipta 100-62.5-25 MCG/ACT Aerosol Powder Breath Activated 1 puff Inhalation Once a day EpiPen 2-Lisa 0.3 mg kit as directed intramuscularly once OMEPRAZOLE 40 mg delayed release capsule 1 cap(s) orally once a day ALBUTEROL (EQV-PROVENTIL HFA) 90 mcg/inh aerosol 2 puff(s) inhaled Q4-6 hours, PRN and per the asthma action plan AEROCHAMBER MDI SPACER - MOUTHPIECE (ADULT) N/A Spacer for MDI use As directed PO Per asthma action plan FLUTICASONE NASAL 50 mcg/inh spray 2 spray(s) in each nostril BID NASAL WASHES N/A 1 quart of sterilized tap water or distilled water, 1 tsp NaCl, 1 pinch of baking soda as directed intranasally as needed AMPARO 24 HOUR ALLERGY 180 mg tablet 1 tab(s) orally once a day TRELEGY ELLIPTA 200 mcg-62.5 mcg-25 mcg/inh powder 1 puff(s) inhaled once a day FLUTICASONE NASAL 50 mcg/inh spray 2 spray(s) in each nostril BID EPIPEN 2-LISA 0.3 mg kit as directed intramuscularly once QUETIAPINE 200 mg tablet 1 tab(s) orally 2 times a day DULOXETINE 60 mg delayed release capsule 2 tablets orally once a day PREGABALIN 100 mg capsule 1 cap(s) orally 2 times a day Medication List reviewed and reconciled with the patientNot- Taking/PRN Fluticasone Propionate 50 MCG/ACT Suspension 2 spray(s) in each nostril BID Not-Taking/PRN Trelegy Ellipta 200 MCG-62.5 MCG-25 MCG/INH POWDER 1 PUFF(S) INHALED ONCE A DAY , Notes to Pharmacist: *Please review and pick correct strength-formulation from [employer] options. If intended option is not shown, discontinue and re-order from Quick Search*Not-Taking/PRN Trelegy Ellipta 100-62.5-25 MCG/ACT Aerosol Powder Breath Activated 1 puff Inhalation Once a day Not- Taking/PRN EpiPen 2-Lisa 0.3 mg kit as directed intramuscularly once Not-Taking/PRN OMEPRAZOLE 40 mg delayed release capsule 1 cap(s) orally once a day Not-Taking/PRN ALBUTEROL (EQV-PROVENTIL HFA) 90 mcg/inh aerosol 2 puff(s) inhaled Q4-6 hours, PRN and per the asthma action plan Not-Taking/PRN AEROCHAMBER MDI SPACER - MOUTHPIECE (ADULT) N/A Spacer for MDI use As directed PO Per asthma action plan Not-Taking/PRN FLUTICASONE NASAL 50 mcg/inh spray 2 spray(s) in each nostril BID Not-Taking/PRN NASAL WASHES N/A 1 quart of sterilized tap water or distilled water, 1 tsp NaCl, 1 pinch of baking soda as directed intranasally as needed Not-Taking/PRN AMPARO 24 HOUR ALLERGY 180 mg tablet 1 tab(s) orally once a day Not-Taking/PRN TRELEGY ELLIPTA 200 mcg-62.5 mcg-25 mcg/inh powder 1 puff(s) inhaled once a day Not-Taking/PRN FLUTICASONE NASAL 50 mcg/inh spray 2 spray(s) in each nostril BID Not-Taking/PRN EPIPEN 2-LISA 0.3 mg kit as directed intramuscularly once Not-Taking/PRN QUETIAPINE 200 mg tablet 1 tab(s) orally 2 times a day Not-Taking/PRN DULOXETINE 60 mg delayed release capsule 2 tablets orally once a day Not-Taking/PRN PREGABALIN 100 mg capsule 1 cap(s) orally 2 times a day Medication List reviewed and reconciled with the patient * Allergies: N .K.D.A.no[Allergies Verified] Objective: * Vitals: B P:128/81mm Hg, HR:86/min, Pulse Oximetry:96%, ACT:22, Ht: 72 in, Wt: 220.6 lbs, BMI:29.92Index. * Examination: G eneral examination: General appearance: p leasant, well-developed, well-nourished, in no apparent distress, speaking in full sentences. HEENT: c onjunctiva are normal bilaterally, TMs without evidence of acute infection, turbinates 2+ swollen and pale inferiorly bilaterally, clear rhinorrhea is present, no polyps noted, no septal perforation, posterior oropharynx is clear without exudates, erythema on pharyngeal wall, no exudates, no tongue swelling, and uvula is midline. Oral cavity: n ormal, no lesions. Breasts : n ot performed. Heart: R RR, S1-S2, no murmurs, no rubs, no gallops. Lungs: c lear to auscultation in all lung chen, no wheezes, no crackles, no rhonchi. Neurologic exam: u nremarkable. Skin: n ormal, no visible rash, dermatographism, urticaria, angioedema. Back: n ormal. Extremities: n ormal ROM, no clubbing, no cyanosis, no edema. Genitalia: n ot performed. Assessment: * Assessment: 1. W heezing - R06.2 (Primary) 2 . C hronic cough - R05.3 3 . A llergic rhinitis due to pollen - J30.1 4 . A llergic rhinitis due to animal (cat) (dog) hair and dander - J30.81 5 . O ther allergic rhinitis - J30.89 6. O ther chronic allergic conjunctivitis - H10.45 7 . G bev-esophageal reflux disease without esophagitis - K21.9 8 . O ther diseases of vocal cords - J38.3 9 . E levated blood-pressure reading, without diagnosis of hypertension - R03.0 Plan: * Treatment: 2. C hronic cough Notes: Cough is likely multifactorial, allergies/GERD/reactive airways. Patient reports reflux is stable on omeprazole at this time. -See plan above -Follow-up with GI if no improvement in symptoms 3. A llergic rhinitis due to pollen Continue FLUTICASONE NASAL spray, 50 mcg/inh, 2 spray(s), in each nostril, BID, 30 day(s), 1, Refills 0; C ontinue EPIPEN 2-LISA kit, 0.3 mg, as directed, intramuscularly, once, 30 days, 1, Refills 0; C ontinue NASAL WASHES 1 quart of sterilized tap water or distilled water, 1 tsp NaCl, 1 pinch of baking soda, N/A, as directed, intranasally, as needed, 30, QS, Refills PRN; C ontinue AMPARO 24 HOUR ALLERGY tablet, 180 mg, 1 tab(s), orally, once a day; S tart SIT (TRADITIONAL) see record, variable, per schedule, SC, per schedule, to be determined. Notes: Kaleb clearly suffers from atopic disease based upon our skin testing and clinical history. Accordingly, we have introduced a new, aggressive medication regimen, discussed nasal washes and allergy-specific avoidance measures. Previously on SCIT, denies large, local reactions. Last SCIT injection 01/2024. - At this time, Kaleb's vials are currently . As we are not able to assess his lung function and he returns again off inhalers, recommend awaiting to restart SCIT until we can obtain spirometry or full PFTs from Dr. Camacho office. -Continue medications as listed above. Will need to premedicate with Amparo. Last visit, patient reported not knowing he was supposed to premedicate. Again, he was educated at length. -Keep AIE on hand 2 hours after SCIT. -Follow-up in 4 weeks for SCIT 4. A llergic rhinitis due to animal (cat) (dog) hair and dander Notes: Follow allergen avoidance, meds and restart SCIT as an adjunctive treatment to current regimen 5. O ther allergic rhinitis Notes: Follow allergen avoidance, meds and restart SCIT as an adjunctive treatment to current regimen 6. O ther chronic allergic conjunctivitis Notes: Given ocular signs and symptoms, I encouraged allergy avoidance measures and meds as above. If symptoms persist, consider adding additional medications including intraocular antihistamine/mast cell stabilizer, PRN and restart SCIT as an adjunctive measure 7. G bev-esophageal reflux disease without esophagitis Continue OMEPRAZOLE delayed release capsule, 40 mg, 1 cap(s), orally, once a day. Notes: Kaleb reports history of acid reflux and episodes of choking, stable since starting omeprazole. -Continue omeprazole and continue to follow-up with GI 8. O ther diseases of vocal cords Notes: Prior complaints of wheezing on inhalation and exhalation, though reported improvement after starting Breo. Additionally, he reported he felt he could not get a deep breathe in during spirometry. Inspiratory blunting noted on initial spirometry and repeat spirometry. Overall has much difficulty with spirometry. -Handout given for VCD at initial visit. Encouraged to continue exercises. -Consider referral to speech therapy if no improvement 9. E levated blood-pressure reading, without diagnosis of hypertension Notes: BP elevated today without symptoms of urgency or emergency. Continue serial checks and follow-up with PCP * Procedures: R ecord Review: Outside Records I spent 1 5 additional minutes obtaining and reviewing outside records related to this patient during this office visit T stephanie (Provider Encounter): Time Attestation T his follow-up encounter took more than: m ore than 40 minutes ([id number]) T asks performed during this encounter include: t aking a history, reviewing the patient's review of systems, performing the physical examnation, reviewing outside medical records, counseling the patient on their diagnoses and chronic management, discussed risks, benefits and alternatives to care, documenting in the EHR * Procedure Codes: G 8427 DOC MEDS VERIFIED W/PT OR [id number] PT-FOCUSED HLTH RISK ASSMT * Preventive Medicine: Counseling: D iet a s tolerated. E xercise C ontinue activity as usual, Consider BERNARDA use PRN, prior to exercise as per the asthma action plan. M edication instruction: W atch for side effects of prescribed medications, Use prescribed inhaler(s) with spacer. If taking a inhaled corticorsteroid rinse out mouth after use and brush teeth. Oral hygiene reviewed at length. , Use 2 puffs of BERNARDA with spacer prior to exercise and environmental exposures known to cause wheezing. E ducation: G ENERAL EDUCATION: Our staff spent an additional 30 minutes in direct contact with the patient educating them on their current diagnoses and proper treatment and prevention of symptoms and the proper use of medications, ASTHMA EDUCATION:, Our staff discussed pulmonary function testing and results with the patient/family, Our staff formulated an asthma action plan with the patient/family, Our staff reviewed the patient's asthma action plan, Our staff trained the patient on the appropriate use of MDI/DPI/Respimat/spacer/nebulizer treatments for future use. E ducation 2: V CD EDUCATION: Resistive breathing exercises for treatment of suspected vocal cord dysfunction reviewed with the patient, VCD handout provided. P atient education material sent to portal? Y es C are goal follow up plan BMI management provided Y es Above Normal BMI Follow-up D ietary management education, guidance, and counseling B P Management: PRE-HYPERTENSIVE FOLLOW-UP PLAN: F ollow-up 1 month REFERRAL TO ALTERNATIVE / PRIMARY CARE PROVIDER: R traceyal to general physician Screenings: F all Risk Fall Risk Assessment: N o falls in the past year Plan of Care: D ocumented * Follow Up: 4 Weeks (Reason: Evaluation and Management,SCIT,Spirometry/Flow Volume Loop) * Billing Information: * Visit Code: 47585 Office Visit, Est Pt., Level 5. Modifiers: 25 * Procedure Codes: G8427 DOC MEDS VERIFIED W/[place]. [address] PT-FOCUSED HLTH RISK ASSMT. * Sign off status: Completed true * Provider: ROCCO Villafuerte Date: 0 05/20/2024 Generated for David painter/Karthik/eTransmitting on: 0 06/08/2024 11:36 AM CDT History and Physical Notes * HPI (History of Present Illness) Category Sub-Category Detail Notes Category Not es *Introduction I had the pleasure o f seeing Kaleb Robert, a 68-year-old WM with a history of ARC, presumed asthma, neuropathy, alcoholism (in remission) and GERD, returning for interval evaluation and management. He is alone for today's visit. He was evaluated in 11/2023, with instructions to follow-up in 1 month but did not. He was evaluated in 01/2023 with instructions to follow-up in 2 months, did not follow-up until last visit in 11/2023. Since last visit, Kaleb reports appendectomy after his appendix carolyne in 12/2023. Pathology confirmed appendiceal cancer, so patient underwent right colectomy on 04/01/24. He has a weight restriction of 20lbs until he is medically cleared after 8 weeks (05/27/24). 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 He reports no need for chemo or radiation at this ulisses, monitored with PET scans every 3-6 months. At last visit in 11/2023, Kaleb again stopped all inhalers for several months I didn't have any symptoms so I didn't think I needed to. He was given samples of Trelegy and told to follow-up in 1 month. He presents today 6 months later again off all inhalers, reporting only using Trelegy sporadically. Kaleb has a long history of non-compliance and poor understanding of disease process. Pulmonology evaluation recommended in 2022 and 2023, but did not pursue until today, reporting evaluation earlier this after with gerri Vallejo for follow-up on 08/05/24. Denies recent BERNARDA use. ACT 25. He reports full cardiac workup several months ago that was all good. He is now behind on SCIT, last injection 01/2024. Briefly, in 12/2022, Kaleb presented with cough and chest congestion for approximately 2 months. Wheezing noted on exam despite nebulizer treatment. Of note, he continued to receive SCIT with wheezing. He had been off controller inhaler since 06/2022 despite reporting he had been taking Advair HFA. Prior spirometry demonstrated reversibility, c/w reactive airway disease. Trelegy samples given in addition to 7 days PO steroids. Chest Xray ordered at that time and was normal. At visit 2 weeks later, reported fevers and diarrhea. He presented to [facility] on Friday 12/29, negative for flu and Covid. He was prescribed Augmentin, which was started on 12/30/22. Previously evaluated by PCP Dr. Corrales and was prescribed a Z-pack with minimal improvement in symptoms. At visit in 01/2023, he reported feeling overall much better. No longer c/o wheezing and continued on Trelegy. Reported daily albuterol usage as he thought additional albuterol might help some. 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 He has attempted BERNARDA prior with no improvement. He has not attempted BERNARDA after hauling. Historically, Kaleb reported a constant, sometimes productive cough for 3 months that is causing him to awaken at night. He states he was prescribed 2 different antibiotics for his last URI and believes it has not fully resolved. Kaleb also describes wheezing upon inspiration and exhalation and states he feels the wheeze in his chest. He denies recent sinus infections, PNA, intubations. He has received his PNA vaccine. Kaleb was previously managed by Dr. Yoon at [facility] and was on allergen immunotherapy until November 2021. He believes he had skin testing done approximately 3.5-4 years ago and was on monthly maintenance for 1 year. Per Kaleb, he would get vials from Dr. Yoon's office and his neighbor would administer the monthly injections. Currently reports nasal congestion, ears plugged, productive cough, wheezing, chest congestion. Prior to allergen immunotherapy, Kaleb would have 4-5 URIs per year. This improved on immunotherapy, but became more frequent since discontinuing. Aeroallergen skin testing was completed at first visit, and was positive to multiple seasonal and perennial allergens. His treatment regimen consists of a daily Zyrtec or Amparo and Flonase. He does not recall ever taking PO steroids. He restarted SCIT via rapid build-up in 09/2022, tolerating dosing well without large, local reactions. Unfortunately, he has been off SCIT since 01/2024. He reports a history of acid reflux, for which he believes is stable since starting omeprazole. Prior to starting omeprazole, he was having choking due to food sticking, requiring 2-3 ER visits. Per Kaleb, he did have an endoscopy and was placed on omeprazole. Today, he reports no fevers, chills, night sweats or other constitutional symptoms Examination Category Sub-Category Detail Notes Category Not es General examination HEENT: conjunctiva are normal bilaterally, TMs without evidence of acute infection, turbinates 2+ swollen and pale inferiorly bilaterally, clear rhinorrhea is present, no polyps noted, no septal perforation, posterior oropharynx is clear without exudates, erythema on pharyngeal wall, no exudates, no tongue swelling, and uvula is midline Heart: RRR, S1-S2, no murmu rs, no rubs, no gallops Lungs: clear to auscultatio n in all lung chen, no wheezes, no crackles, no rhonchi Extremities: normal ROM, no clubb ing, no cyanosis, no edema General appearance: pleasant, well-devel oped, well-nourished, in no apparent distress, speaking in full sentences Skin: normal, no visible r aniket, dermatographism, urticaria, angioedema Neurologic exam: unremarkable Oral cavity: normal, no lesions Breasts : not performed Back: normal Genitalia: not performed
--- OUTSIDE RECORDS SUMMARY | 2024-06-08 11:37 | XMS_ITS ---
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 10/26/2019 Closed fracture of fourth metacarpal bone of lef t hand 10/26/2019 Closed fracture of fifth metacarpal bone of left hand 10/26/2019 Complicated laceration of hand, left, initial en counter 10/26/2019 Closed nondisplaced fracture of lateral malleolus of left fibula 10/26/2019 Nondisplaced fracture of int ermediate cuneiform of left foot, initial encounter for closed fracture 10/26/2019 Elbow laceration, left, initial encounter 2019 Closed fracture of one rib of right side 020 Laceration of right knee 10/26/2019 Acute pain due to trauma 10/26/2019 Neuropathy 10/26/2019 ETOH abuse 10/26/2019 Amputation, finger, traumatic 10/25/2019 Overview (10/26/2019): Added automatically from request for surgery [id number] Current Treatment and Therapy Plans No current plan information found. Past Treatment and Therapy Plans No past plan information found. Lifetime Dose Tracking * Chemical Lifetime Dose Automatic Entry Manual Entr y DLP 3,155 mGycm 3,155 mGycm 0 mGycm
--- OUTSIDE RECORDS SUMMARY | 2024-06-08 11:37 | XMS_ITS | Encounter Summary ---
Author Organization [facility] Address [address] [place] [address] Phone Care Team Providers Care Head Greenskeeper Name Role Phone Juliet Corrales MD Primary Care Provider [phone] Encounter Details Date Type Department Care Team (Late st Contact Info) Description 02/27/2021 Transcribe Orders [facility] Preop/Pacu II [address] [place] [address] Wade Conteh MD [address] [place] [address] Pre-op testing (Primary Dx) Social History Tobacco [...] have Coronavirus / COVID-19? No / Unsure 02/27/2021 3:15 PM TRACK TEMPLATE MAKER documented as of this encounter Plan of Treatment Not on file documented as of this encounter Results * SARS-COV-2 BY MOLECULAR (03/03/2021 6:43 AM TRACK TEMPLATE MAKER) SARSCOV2 NOT DETECTED (Referen ce Range for this test is Not Detected ) [facility] FAST DX 03/04/2021 7:28 AM TRACK TEMPLATE MAKER [facility] Comment:This test was perfor med by a RT-PCR method. Other NASOPHARYNGEAL STRUCTURE / Unknown Non-Phlebotomy Collection / Unknown 03/03/2021 6:43 AM TRACK TEMPLATE MAKER 03/03/2021 7:16 AM TRACK TEMPLATE MAKER Narrative [facility] - 03/04/2021 7:28 AM TRACK TEMPLATE MAKER Authorized Fact Sheets about this test for providers and patients are available at: https://www.fda.gov/medical-devices/vriduzftx-afjchboaul-epnxcyd-devices/emergen -us e-authorizations us Wade Conteh MD MICROBIOLOGY - GENERAL ORDERA BLES Final Result [facility] [address] [place] [address], documented in this encounter Visit Diagnoses Diagnosis Pre-op testing- Primary Preoperative examination, unspecified documented in this encounter Care Teams Head Greenskeeper Relationship Specialty Start Date End Date Juliet Corrales MD [address] [place] [id number] PCP - General 03/03/21 documented as of this encounter
--- OUTSIDE RECORDS SUMMARY | 2024-06-08 11:37 | XMS_ITS ---
Author Organization [facility] [place] ([address]) Address [address] [facility] [address] [place] [address] Care Team Providers Care Embossing Unit Operator Name Role Phone Juliet Corrales Primary Care Provider Racheal Monsivais Unavailable [phone] REASON FOR VISIT Medical records request Social History Sex Assigned At : Social History Observation Description Sex Assigned At Male Encounters Encounter Location Date Provider Diagnosis [address] [address] 05/20/2024 Racheal Burns Plan Of Treatment Next Appt Details Provider Name:Edie martin, 06/29/2024 02:45:00 PM[facility] [address] [place], [address], Progress Notes * Kaleb ROBERTDOB:1955 ( 68 yo M)Acc No.[id number]:05/20/2024 Patient: Kaleb SHELTON :1955 A ge:68 Y S ex:Male Address:[address] [place] [address] [place] [address] * true * Date: Generated for Printi ng/Faxing/eTransmitting on: 0 06/08/2024 11:37 AM CDT
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
--- OUTSIDE RECORDS SUMMARY | 2024-06-08 11:37 | XMS_ITS | Clinical Summary ---
Author Organization [facility] Address [address] [place] [address] Phone Care Team Providers Care Literacy Teacher Name Role Phone SALMA ESCOBAR MD Primary Care Provider [phone] Reason for Visit and Chief Complaint RX ISSUE/REFILL Problems Includes: Problems addressed during this encounter and other active Problems All Visits Onset Date Resolved Date Provider Condition S tatus Asthma 12/20/2022 RAJANI Stratton PA-C Active Last Documented On 12/20/2022 8:26AM ; [facility] Note: Sees allergy/immunology in [place] Bursitis Olecranon Left 05/30/2022 SALMA ESCOBAR MD Active Last Documented On 05/30/2022 8:55AM ; [facility] Note: Unchanged Alcohol Dependence in Remission 01/09/2021 LUIS MANUEL ODELL DO Active Last Documented On 9:01AM ; [facility] Allergic Rhinitis 01/09/2021 LUIS MANUEL ODELL DO Active Last Documented On 9:01AM ; [facility] Gerd 10/07/2020 SALMA ESCOBAR MD Act bruno Last Documented On 9:20AM ; [facility] Note: Unchanged Neuropathy 10/07/2020 SALMA ESCOBAR MD Act bruno Last Documented On 9:20AM ; [facility] Note: Unchanged Plan of Treatment No Plan of Treatment Recorded Assessments Includes: Assessments from this encounter No Assessments Recorded Medical Equipment - Implanted Devices Includes: Current Devices No Medical Equipment Recorded Medications Includes: Medications discussed during this encounter and other current Medications New / Renewed during this visit SALMA ESCOBAR MD on 06/26/2023 Cyanocobalamin 1000 MCG/ML Injection Solution Provider: SALMA Mi 120 day supply: 12 mL, 0 refills Diagnosis: ONE B12 INJECTION WEEKLY FOR 3 MONTHS Pharmacy: [address], [address] - Last Documented On 06/26/2023 2:47PM By KAVIN POWELL ; [facility] BD Luer-Porsha Syringe 25G X 5/8 3 ML Miscellaneous Provider: SALMA WEINBERG MD 120 day supply: 12 each, 0 refills Diagnosis: USE ONE SYRINGE WEEKLY FOR B12 INJ Pharmacy: [address], [address] - Last Documented On 06/26/2023 2:47PM By KAVIN POWELL ; [facility] Current Medications (continue as prescribed) QUEtiapine Fumarate 200 MG Oral Tablet 06/12/2023 Pr ovider: SALMA ESCOBAR MD Diagnosis: TAKE 1/2 TO 1 TABLET BY MOUTH EVERY DAY AT BEDTI [place] Last Documented On 4 6:07PM By SALMA ESCOBAR MD ; [facility] DULoxetine HCl 60 MG Oral Ca psule Delayed Release Particles 06/12/2023 Provider: SALMA Mi Diagnosis: TAKE 1 CAPSULE BY MOUTH TWICE A DAY Last Documented On 4 6:07PM By SALMA ESCOBAR MD ; [facility] Pregabalin 100 MG Oral Capsule 06/11/2023 Provider: SALMA ESCOBAR MD Diagnosis: TAKE 1 CAPSULE BY MOUTH TWICE A DAY Last Documented On 4 10:52PM By SALMA ESCOBAR MD ; [facility] Omeprazole 40 MG Oral Capsul e Delayed Release 05/16/2023 Provider: 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 in [place] Last Documented On 12/19/2022 3:51PM By KAVIN POWELL ; [facility] Albuterol Sulfate HFA 108 (9 0 Base) MCG/ACT Inhalation Aerosol Solution 05/28/2022 Provider: Diagnosis: Last Documented On 05/30/2022 8:26AM By Carol POWELL ; [facility] Fluticasone Propionate 50 MC G/ACT Nasal Suspension 02/19/2021 Provider: SALMA Mi Diagnosis: USE 2 SPRAYS IN EACH NOSTRIL EVERY DAY Last Documented On 02/19/2021 6:22PM By Carol POWELL ; [facility] Medications Administered Includes: Administered Medications from this encounter No Administered Medications Recorded Results Includes: Results discussed during this encounter No Results Recorded For Specified Dates History of Present Illness Includes: History of Present Illness from this encounter No History of Present Illness Recorded Social History No Social History Recorded - Smoking Status Unknown Medical History Includes: Medical History addressed during [...] Location Date Check-In Time Check-Out Time Diagnosis RX ISSUE/REFILL SALMA ESCOBAR MD 06/26/2023 2:32PM 11:59PM Insurance Includes: Active Insurance Policies Plan Name Member ID Group # Subscriber Relationship Effect bruno Dates 1 - [facility] [id number] EMMA ROBERT Self Clinical Notes Includes: Clinical Notes from this encounter No Clinical Notes Recorded
--- OUTSIDE RECORDS SUMMARY | 2024-06-08 11:37 | XMS_ITS | Patient Health Record ---
Author Organization [facility] [employer] [place] ([address]) Address [address] [place] [address] Care Team Providers Care Hotel Lobby Concierge Name Role Phone Henrytika Juliet Primary Care Provider UnavailRacheal Toledo Unavailable [phone] Frank Moraes Unavailable [phone] [facility], Provider Unavailable Unavailab le Allergies No Known Allergies Results Component Value Reference Range Notes Spirometry Reviewed date:11/21/2023 01:56:14 PM Interpretation:Abnormal - FVL Performing Lab: Notes/Report: Abnormal - FVL SpiroPreBronchodilator_FVC 3.7 SpiroPostBronchodilator_FEF25_75 0 SpiroPreBronchodilator_FEF25_75 3.97 SpiroPreBronchodilator_FEV1 3.14 SpiroPrecentPredictionPost_FEF25_75 0 SpiroPrecentPredictionPost_FEV1 0 SpiroPrecentPredictionPost_FEV1_OVER_FVC 0 SpiroPrecentPredictionPost_FVC 0 SpiroPrecentPredictionPre_FEF25_75 118.2 SpiroPrecentPredictionPre_FEV1 83.3 SpiroPrecentPredictionPre_FEV1_OVER_FVC 110.6 SpiroPrecentPredictionPre_FVC 75.4 SpiroPredicted_FEF25_75 3.36 SpiroPreBronchodilator_FEV1_OVER_FVC 84.84 SpiroPreBronchodilator_PEF 7.6 SpiroPostBronchodilator_FVC 0 SpiroPostBronchodilator_FEV1 0 SpiroPostBronchodilator_FEV1_OVER_FVC 0 SpiroPostBronchodilator_PEF 0 SpiroPredicted_FVC 4.91 SpiroPredicted_FEV1 3.77 SpiroPredicted_FEV1_OVER_FVC 76.68 SpiroPredicted_PEF 8.89 Reason For Referral No Information Medications Medication SIG (Take, Route, Frequency, Duration) Notes Start Date End Date Status TRELEGY ELLIPTA 200 mcg-62.5 mcg-25 mcg/inh 1 puff(s) inhaled once a day for 30 days Not-Taking FLUTICASONE NASAL 50 mcg/inh 2 spray(s) in each nostril BID for 30 day(s) Not-Taking EPIPEN 2-LISA 0.3 mg as directed intramuscularly once for 30 days Not-Taking EpiPen 2-Lisa 0.3 mg as directed intramuscularly once for 30 days Active QUETIAPINE 200 mg 1 tab(s) orally 2 times a day Not-Taking DULOXETINE 60 mg 2 tablets orally once a day Not-Taking Cyanocobalamin 1000 MCG/ML 1 mL Injection Active PREGABALIN 100 mg 1 cap(s) orally 2 times a day Not-Taking SIT (TRADITIONAL) variable per schedule SC per schedule for to be determined Active Trelegy Ellipta 100-62.5-25 MCG/ACT 1 puff Inhalation Once a day for 30 days Active Fluticasone Propionate 50 MCG/ACT 2 spray(s) in each nostril BID for 30 day(s) Not-Taking ALBUTEROL (EQV-PROVENTIL HFA) 90 MCG/INH USE 2 PUFF(S) INHALED EVERY 4 TO 6 HOURS NEEDED AND PER THE ASTHMA ACTION PLAN 30 DAY(S) for 30 *Please review for potential replacement for e-prescription and drug interaction check* Active Omeprazole 40 MG 1 cap(s) orally once a day Active Amparo Allergy 180 MG 1 tab(s) orally once a day Active QUEtiapine Fumarate 200 MG 1 tab(s) orally 2 times a day Active DULoxetine HCl 60 MG 2 tablets orally once a day Active Pregabalin 100 MG 1 cap(s) orally 2 times a day Active Trelegy Ellipta 200 MCG-62.5 MCG-25 MCG/INH 1 PUFF(S) INHALED ONCE A DAY for 30 DAYS *Please review and pick correct strength-formula tion from Parudi options. If intended option is not shown, discontinue and re-order from Quick Search* 02/06/2023 Not-Taking NASAL WASHES N/A as directed intranasally as needed for 30 Active EPIPEN 2-LISA 0.3 mg as directed intramuscularly once for 30 days Active FLUTICASONE NASAL 50 mcg/inh 2 spray(s) in each nostril BID for 30 day(s) Active AEROCHAMBER MDI SPACER - MOUTHPIECE (ADULT) N/A As directed PO Per asthma action plan for 30 day(s) Active AMPARO 24 HOUR ALLERGY 180 mg 1 tab(s) orally once a day Active ALBUTEROL (EQV-PROVENTIL HFA) 90 mcg/inh 2 puff(s) inhaled Q4-6 hours, PRN and per the asthma action plan for 30 day(s) Active OMEPRAZOLE 40 mg 1 cap(s) orally once a day Active Social History Tobacco Use: Social History [...] ast year? No Points 0 Interpretation Negative Problems Problem Type SNOMED Code ICD Code Onset Dates Problem Status W/U Status Risk Notes Problem Hereditary disorder of nervous system (621952929) Hereditary and idiopathic neuropathy, unspecified (G60.9) Active confirmed Problem Chronic allergic conjunctivitis (82935645) Other chronic allergic conjunctivitis (H10.45) Active confirmed Problem Allergic rhinitis caused by pollen (disorder) (22774993) Allergic rhinitis due to pollen (J30.1) Active confirmed Problem Allergic rhinitis caused by animal hair and dander (061262830395610) Allergic rhinitis due to animal (cat) (dog) hair and dander (J30.81) Active confirmed Problem Allergic rhinitis caused by pollen (disorder) (56543071) Allergic rhinitis due to pollen (J30.1) Active confirmed Problem Allergic rhinitis caused by animal hair and dander (661289734510575) Allergic rhinitis due to animal (cat) (dog) hair and dander (J30.81) Active confirmed Problem Allergic rhinitis (79606435) Other allergic rhinitis (J30.89) Active confirmed Problem Chronic allergic conjunctivitis (25078222) Other chronic allergic conjunctivitis (H10.45) Active confirmed Problem Wheezing (75456224) Wheezing (R06.2) Active confirmed Problem Elevated blood pressure reading without diagnosis of hypertension (171910274) Elevated blood-pressure reading, without diagnosis of hypertension (R03.0) Active confirmed Problem Gastro-esophageal reflux disease without esophagitis (584856160) Gastro-esophageal reflux disease without esophagitis (K21.9) Active confirmed Problem Disorder of vocal cord (37063077) 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) Active confirmed Problem Chronic cough (41817312) Chronic cough (R05.3) Active confirmed Vital Signs Oximetry 96 % 05/20/2024 Blood pressure diastolic 81 mm Hg 05/20/2024 Height 72 in 05/20/2024 Blood pressure systolic 128 mm Hg 05/20/2024 Weight 220.6 lbs 05/20/2024 BMI 29.92 kg/m2 05/20/2024 Encounters Encounter Location Date Provider Diagnosis [address] [address] 07/27/2023 Provider [facility] [address] [address] 06/19/2023 Frank Moraes Allergic rhinitis du e to pollen J30.1 ; Other allergic rhinitis J30.89 ; Allergic rhinitis due to animal (cat) (dog) hair and dander J30.81 and Other chronic allergic conjunctivitis H10.[address] [address] 07/17/2023 Frank Moraes Allergic rhinitis du e to pollen J30.1 ; Other allergic rhinitis J30.89 ; Allergic rhinitis due to animal (cat) (dog) hair and dander J30.81 and Other chronic allergic conjunctivitis H10.[address] [address] 08/14/2023 Frank Moraes Allergic rhinitis du e to pollen J30.1 ; Other allergic rhinitis J30.89 ; Allergic rhinitis due to animal (cat) (dog) hair and dander J30.81 and Other chronic allergic conjunctivitis H10.[address] [address] 09/19/2023 Frank Moraes Allergic rhinitis du e to pollen J30.1 ; Other allergic rhinitis J30.89 ; Allergic rhinitis due to animal (cat) (dog) hair and dander J30.81 and Other chronic allergic conjunctivitis H10.45 [facility] [address] [place] [address] 10/24/2023 Frank Moraes Allergic rhinitis du e to pollen J30.1 ; Other allergic rhinitis J30.89 ; Allergic rhinitis due to animal (cat) (dog) hair and dander J30.81 and Other chronic allergic conjunctivitis H10.45 [facility] [address] [place] [address] 11/21/2023 Racheal Burns Chronic cough R05.3 ; Wheezing R06.2 ; Allergic rhinitis due to pollen J30.1 ; Allergic rhinitis due to animal (cat) (dog) hair and dander J30.81 ; Other allergic rhinitis J30.89 ; Other chronic allergic conjunctivitis H10.45 ; Gastro-esophageal reflux disease without esophagitis K21.9 and Other diseases of vocal cords J38.3 [facility] [address] [place] [address] 12/19/2023 Frank Moraes Allergic rhinitis du e to pollen J30.1 ; Other allergic rhinitis J30.89 ; Allergic rhinitis due to animal (cat) (dog) hair and dander J30.81 and Other chronic allergic conjunctivitis H10.[address] [address] 01/16/2024 Frank Moraes Allergic rhinitis du e to pollen J30.1 ; Other allergic rhinitis J30.89 ; Allergic rhinitis due to animal (cat) (dog) hair and dander J30.81 and Other chronic allergic conjunctivitis H10.[address] [address] 05/20/2024 Racheal Burns Chronic cough R05.3 ; Wheezing R06.2 ; Allergic rhinitis due to pollen J30.1 ; Allergic rhinitis due to animal (cat) (dog) hair and dander J30.81 ; Other allergic rhinitis J30.89 ; Other chronic allergic conjunctivitis H10.45 ; Gastro-esophageal reflux disease without esophagitis K21.9 ; Other diseases of vocal cords J38.3 and Elevated blood-pressure reading, without diagnosis of hypertension R03.0 [facility] [address] [facility] [address] [place] [address] [facility] [address] [address] 04/23/[address] [address] 05/20/[address] [address] 05/23/20[facility] Ass[facility] Encounter Date Diagnosis (ICD Code) Assessment Notes Treatment Notes Treatment Clinical Notes Section Notes 06/19/2023 Allergic rhinitis due to pollen (ICD-10 - J30.1) 06/19/2023 Other allergic rhinitis (ICD-10 - J30.89) 07/17/2023 Allergic rhinitis due to pollen (ICD-10 - J30.1) 07/17/2023 Other allergic rhinitis (ICD-10 - J30.89) 08/14/2023 Allergic rhinitis due to pollen (ICD-10 - J30.1) 08/14/2023 Other allergic rhinitis (ICD-10 - J30.89) 09/19/2023 Allergic rhinitis due to pollen (ICD-10 - J30.1) 09/19/2023 Other allergic rhinitis (ICD-10 - J30.89) 10/24/2023 Other allergic rhinitis (ICD-10 - J30.89) 10/24/2023 Allergic rhinitis due to pollen (ICD-10 - J30.1) 11/21/2023 Wheezing (ICD-10 - R06.2) Historically, Kaleb presented [...] by 160cc and FEV1 increased by 320cc. Last visit, patient reported daily albuterol usage just to see if it helps. Of note, patient has very poor spirometry technique and overall poor understanding of disease process and inhaler usage despite re-education at each visit. AAP have been formulated and reviewed at length in addition to proper demonstration and correct usage of inhalers at each visit. - Last visit in 01/2023, Trelegy increased to high-dose due to occasional SOB with instructions to follow-up in 2 months. Did not follow-up and stopped all inhalers several months ago I don't think I have asthma. ACT 25 today with no interval BERNARDA use. - Spirometry done today and showed reduced FVC suggesting restriction, though TLC not measured. Borderline FEV1 and normal FEV%. FVC decreased by 290cc and FEV1 decreased by 300cc compared to 01/2023 spirometry. FVL shows scalloping on end-exhalation and inspiratory blunting. Advanced lung age. -Chest X-ray ordered in 12/2022- normal. - Strongly encouraged to restart controller inhaler given worsening spirometry and flare last Fall/Winter requiring OCS and antibiotics. Trelegy 100 to be started for 1 month. Samples given in office. - Continue BERNARDA prn with spacer. - AAP reviewed, again. - Kaleb continues to demonstrate poor understanding of disease process. At this time, recommend pulmonology referral for full PFTs, methacholine challenge given patient's consistent poor spirometry technique. Referral again sent to Dr. Hernández as patient reports he did not know he was to see pulmonology. - Reports normal cardiac workup - Again, educated Dondal SCIT must be stopped for any lower airway problems of BERNARDA use within 24 hours. - Follow-up in 1 month for E&M, repeat spirometry 11/21/2023 Chronic cough (ICD-10 - R05.3) Cough is likely multifactorial, allergies/GERD/nathan ctive airways. Patient reports reflux is stable on omeprazole at this time. -See plan above -Follow-up with GI if no improvement in symptoms 12/19/2023 Allergic rhinitis due to pollen (ICD-10 - J30.1) 12/19/2023 Other allergic rhinitis (ICD-10 - J30.89) 01/16/2024 Allergic rhinitis due to pollen (ICD-10 - J30.1) 01/16/2024 Other allergic rhinitis (ICD-10 - J30.89) 05/20/2024 Wheezing (ICD-10 - R06.2) Historically, Kaleb [...] with spacer. - AAP reviewed, again. - Kalbe continues to demonstrate poor understanding of disease [...] 1 month for E&M, repeat spirometry 05/20/2024 Chronic cough (ICD-10 - R05.3) Cough is likely multifactorial, allergies/GERD/nathan ctive airways. Patient reports reflux is stable on omeprazole at this time. -See plan above -Follow-up with GI if no improvement in symptoms 05/20/2024 Allergic rhinitis due to pollen (ICD-10 [...] SCIT. -Follow-up in 4 weeks for SCIT 01/16/2024 Allergic rhinitis due to animal (cat) (dog) hair and dander (ICD-10 - J30.81) 12/19/2023 Allergic rhinitis due to animal (cat) (dog) hair and dander (ICD-10 - J30.81) 10/24/2023 Allergic rhinitis due to animal (cat) (dog) hair and dander (ICD-10 - J30.81) 11/21/2023 Allergic rhinitis due to pollen (ICD-10 - J30.1) Kaleb clearly suffers from atopic disease based upon our skin testing and clinical history. Accordingly, we have introduced a new, aggressive medication regimen, discussed nasal washes and allergy-specific avoidance measures. He continues on SCIT, denies large, local reactions. Dosing tolerated today with signs or symptoms concerning for anaphlaxis. -Continue medications as listed above. Continue to premedicate with Amparo. Patient reports not knowing he was supposed to premedicate. Again, educated at length. -Keep AIE on hand 2 hours after SCIT. -Follow-up in 4 weeks for SCIT 09/19/2023 Allergic rhinitis due to animal (cat) (dog) hair and dander (ICD-10 - J30.81) 08/14/2023 Allergic rhinitis due to animal (cat) (dog) hair and dander (ICD-10 - J30.81) 07/17/2023 Allergic rhinitis due to animal (cat) (dog) hair and dander (ICD-10 - J30.81) 06/19/2023 Allergic rhinitis due to animal (cat) (dog) hair and dander (ICD-10 - J30.81) 06/19/2023 Other chronic allergic conjunctivitis (ICD-10 - H10.45) 07/17/2023 Other chronic allergic conjunctivitis (ICD-10 - H10.45) 08/14/2023 Other chronic allergic conjunctivitis (ICD-10 - H10.45) 09/19/2023 Other chronic allergic conjunctivitis (ICD-10 - H10.45) 10/24/2023 Other chronic allergic conjunctivitis (ICD-10 - H10.45) 11/21/2023 Allergic rhinitis due to animal (cat) (dog) hair and dander (ICD-10 - J30.81) Follow allergen avoidance, meds and continue SCIT as an adjunctive treatment to current regimen 12/19/2023 Other chronic allergic conjunctivitis (ICD-10 - H10.45) 01/16/2024 Other chronic allergic conjunctivitis (ICD-10 - H10.45) 05/20/2024 Allergic rhinitis due to animal (cat) (dog) hair and dander (ICD-10 - J30.81) Follow allergen avoidance, meds and restart SCIT as an adjunctive treatment to current regimen 05/20/2024 Other allergic rhinitis (ICD-10 - J30.89) Follow allergen avoidance, meds and restart SCIT as an adjunctive treatment to current regimen 11/21/2023 Other allergic rhinitis (ICD-10 - J30.89) Follow allergen avoidance, meds and continue SCIT as an adjunctive treatment to current regimen 11/21/2023 Other chronic allergic conjunctivitis (ICD-10 - H10.45) Given ocular signs and symptoms, I encouraged allergy avoidance measures and meds as above. If symptoms persist, consider adding additional medications including intraocular antihistamine/mast cell stabilizer, PRN and continue SCIT as an adjunctive measure 05/20/2024 Other chronic allergic conjunctivitis (ICD-10 - [...] omeprazole and continue to follow-up with GI 11/21/2023 Gastro-esophageal reflux disease without esophagitis (ICD-10 - K21.9) Kaleb reports history of acid reflux and episodes of choking, stable since starting omeprazole. -Continue omeprazole and continue to follow-up with GI 11/21/2023 Other diseases of vocal cords (ICD-10 - [...] to speech therapy if no improvement 05/20/2024 Other diseases of vocal cords (ICD-10 [...] Continue serial checks and follow-up with PCP 11/21/2023 Other 05/20/2024 Other Plan Of Treatment Pending Test Test Name Order Date X ray : Chest 12/19/2022 Spirometry 08/27/2022 Next Appt Details Provider Name:Edie ceja, 06/29/2024 02:45:00 PM, [address], [address], [place], [address], Insurance Providers Payer Name Payer Address Payer Phone Subscriber Number Group Number Insured Name Patient Relationship to Insured Coverage Start Date Coverage End Date [facility] [address] [place] [address] [id number] Kaleb Camar[place] Self - patient is the insured [employer] (Medicare) Attention Claims [address] [place] [address] [id number] Kaleb Camar[place] Self - patient is the insured Medical (General) History Medical History History ICD Code Hereditary and idiopathic neuropathy, un specified G60.9 Gastro-esophageal reflux disease without esophagitis K21.9 Allergic rhinitis due to pollen J30.1 Allergic rhinitis due to animal (cat) (d og) hair and dander J30.81 Other chronic allergic conjunctivitis H1 0.45 Other allergic rhinitis J30.89 Wheezing R06.2 Chronic cough R05.3 Elevated blood-pressure reading, without diagnosis of hypertension R03.0 Other diseases of vocal cords J38.3 Surgical History Surgery Date(Month/Year) elbow surgery 11/2023 appendectomy Hospitalization History Reason Date(Month/Year) See Above
--- OUTSIDE RECORDS SUMMARY | 2024-06-08 11:37 | XMS_ITS | Referral Summary ---
Author Organization [place] [id number] [facility] Address [address] [place] [address] Care Team Providers Care Automated Access Systems Technician Name Role Phone Miscellaneous, Not In File Unavailable Unava ilable Stephen Fulton MD Unavailable [phone] Homero Palm MD Primary Care Provider [phone] Allergies Active Allergy Reactions Criticality Noted Date [...] (10/26/2019): Added automatically from request for surgery [id number] Immunizations Immunization Administration Dates Next Due Flucelvax Influenza Quad 11/20/2018 H1N1 All Forms 12/11/2008 Influenza, Quadrivalent, Spl it, Preservative Free, Intramuscular 12/14/2019,12/10/2014 Influenza, Split 12/09/2008 Influenza, Trivalent, IM (MDV) 01/29/2014 Influenza, Trivalent, Preservative Free, Intramu scular 01/03/2016 Tdap 10/25/2019,09/23/2009 Social History Tobacco Use Types Packs/Day Years [...] on file 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 Jak Soriano MD IMG CT PROCEDURES Diamond l Result from Last 3 Months or Most Recently Relevant to Health Maintenance [place] [address] [place] [address] [employer] Advance Directives For more information, please contact: [phone] * Full Code (Latest Code Status on File) Date Activated Date Inactivated Comments 10/26/2019 4:57 AM 10/29/2019 6:52 PM Care Teams Automated Access Systems Technician Relationship Specialty Start Date End Date Homero Palm MD [address] [place] [id number] PCP - General 12/04/19 Miscellaneous, Not In File 10/28/19 Stephen Fulton MD [address] [place] [address] Referring Physician Plastic Surgery 10/28/19
--- OUTSIDE RECORDS SUMMARY | 2024-06-08 11:38 | XMS_ITS | Clinical Summary ---
Author Organization [facility] Address [address] [place] [address] Phone Care Team Providers Care Lead Auditor Name Role Phone SALMA ESCOBAR MD Primary Care Provider [phone] Reason for Visit and Chief Complaint [facility] NEW PATIENT EXAM- ADULT Problems Includes: Problems addressed during this encounter and other active Problems All Visits Onset Date Resolved Date Provider Condition S tatus Asthma 12/20/2022 RAJANI Stratton PA-C Active Last Documented On 12/20/2022 8:26AM ; [facility] Note: Sees allergy/immunology in [place] Bursitis Olecranon Left 05/30/2022 SAMLA ESCOBAR MD Active Last Documented On 05/30/2022 8:55AM ; [facility] Note: Unchanged Alcohol Dependence in Remission 01/09/2021 LUIS MANUEL ODELL DO Active Last Documented On 9:01AM ; [facility] Allergic Rhinitis 01/09/2021 LUIS MANUEL ODELL DO Active Last Documented On 9:01AM ; [facility] Gerd 10/07/2020 SALMA ESCOBAR MD Act bruno Last Documented On 9:20AM ; [facility] Note: Unchanged Neuropathy 10/07/2020 SALMA ESCOBAR MD Act bruno Last Documented On 9:20AM ; [facility] Note: Unchanged Plan of Treatment No [...] On 06/26/2023 2:47PM By KAVIN POWELL ; [facility] BD Luer-Porsha Syringe 25G X 5/ 8 3 ML Miscellaneous 06/26/2023 Provider: SALMA Mi Diagnosis: USE ONE SYRINGE WEEKLY FOR B12 INJ Last Documented On 06/26/2023 2:47PM By KAVIN POWELL ; [facility] QUEtiapine Fumarate 200 MG Oral Tablet 06/12/2023 Pr ovider: SALMA ESCOBAR MD Diagnosis: TAKE 1/2 TO 1 TABLET BY MOUTH EVERY DAY AT BEDTI SC Last Documented On 4 6:07PM By SALMA ESCOBAR MD ; [facility] DULoxetine HCl 60 MG Oral Ca psule Delayed Release Particles 06/12/2023 Provider: SALMA Mi Diagnosis: TAKE 1 CAPSULE BY MOUTH TWICE A DAY Last Documented On 4 6:07PM By SALMA ESCOBAR MD ; [facility] Pregabalin 100 MG Oral Capsule 06/11/2023 Provider: SALMA ESCOBAR MD Diagnosis: TAKE 1 CAPSULE BY MOUTH TWICE A DAY Last Documented On 4 10:52PM By SALMA ESCOBAR MD ; [facility] Omeprazole 40 MG Oral Capsul e Delayed Release 05/16/2023 Provider: CYRUS STARKEY CIGARETTE ROLLER- FPA, ENOLOGIST-BC Diagnosis: TAKE 1 CAPSULE BY MOUTH EVERY DAY Last Documented On 05/16/2023 1:48PM By Carol POWELL ; [facility] Trelegy Ellipta 100-62.5-25 MCG/ACT Inhalation Aerosol Powder Breath Activated 12/19/2022 Provider: Diagnosis: From allergy, [facility] in [place] Last Documented On 12/19/2022 3:51PM By KAVIN POWELL ; [facility] Albuterol Sulfate HFA 108 (9 0 Base) MCG/ACT Inhalation Aerosol Solution 05/28/2022 Provider: Diagnosis: Last Documented On 05/30/2022 8:26AM By Carol POWELL ; [facility] Fluticasone Propionate 50 MC G/ACT Nasal Suspension 02/19/2021 Provider: SALMA Mi Diagnosis: USE 2 SPRAYS IN EACH NOSTRIL EVERY DAY Last Documented On 02/19/2021 6:22PM By Carol POWELL ; [facility] Medications Administered Includes: Administered Medications from [...] Diagnosis Performing Provider Service Location Service Date ELECTROCARDIAGRAM READING FEE (EKG) (DISTINCT PROCEDURAL SERVICE DIFFERENT SITE) 14976 Abnormal electrocardiogram [ECG] [EKG] MONICA RICARDO MD [facility]- 07/03/2023 Last Documented On 4 12:45PM ; [facility] ELECTROCARDIOGRAM TRACING 36799 Abnormal electrocardiogram [ECG] [EKG] MONICA RICARDO MD [facility] 07/03/2023 Last Documented On 4 12:45PM ; [facility] Medical History Includes: Medical History addressed [...] Encounters Encounter Provider Location Date Check-In Time Check- Out Time Diagnosis [facility] CENTER NEW PATIENT EXAM- ADULT MONICA RICARDO MD [facility]- 4 2:53PM 3:48PM Insurance Includes: Active Insurance Policies Plan Name Member ID Group # Subscriber Relationship Effect bruno Dates 1 - [facility] [place] [id number] EMMA Dickson Clinical Notes Includes: Clinical Notes from this encounter No Clinical Notes Recorded
--- OUTSIDE RECORDS SUMMARY | 2024-06-08 11:38 | XMS_ITS | Continuity of Care Document ---
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 USE 1 SPRAY IN EACH NOSTRIL DAILY FOR NASAL CONGESTION / ALLERGIES - Active omeprazole 40 mg capsule,delayed release take 1 capsule by oral route every day before a meal 40 MG - Active quetiapine 200 mg tablet take 1 tablet by oral route every day 200 MG - Active Cymbalta 60 mg capsule,delayed release take 1 capsule by oral route 2 times every day 60 MG - Active Lyrica 100 mg capsule take 1 capsule by oral route 2 times every day 100 MG - Active amoxicillin 875 mg-potassium clavulanate 125 mg tablet Take one tablet by mouth every 12 hours with food for 10 days - No Longer Active omeprazole 20 mg capsule,delayed release take 1 capsule by oral route every day 30 minutes to 1 hour before a meal 20 MG - No Longer Active Cymbalta 60 mg capsule,delayed release take 1 capsule by oral route every day 60 MG - No Longer Active Procedures Procedure Date Rapid COVID RAPID STREP OFFICE/OUTPATIENT VISIT, EST Rapid COVID OFFICE/OUTPATIENT VISIT, EST Rapid COVID OFFICE/OUTPATIENT VISIT, EST Rapid COVID OFFICE/OUTPATIENT VISIT, EST OFFICE/OUTPATIENT VISIT, EST OFFICE/OUTPATIENT VISIT, EST OFFICE/OUTPATIENT VISIT, EST OFFICE/OUTPATIENT VISIT, EST OFFICE/OUTPATIENT VISIT, EST OFFICE/OUTPATIENT VISIT, EST OFFICE/OUTPATIENT VISIT, EST OFFICE/OUTPATIENT VISIT, EST Methylprednisolone 40 MG inj OFFICE/OUTPATIENT VISIT, EST OFFICE/OUTPATIENT VISIT, EST OFFICE/OUTPATIENT VISIT, EST OFFICE/OUTPATIENT VISIT, EST OFFICE/OUTPATIENT VISIT, NEW Advance Directives Directive Yes / No Effective Date File Name No Information Encounters Encounter Description Practice Location Reason(s) For Visit Diagnoses Date Provider Providers Copied on Encounter [facility], [address] [place] [address], tel:[phone] Almo No Information 3 Odilia Voss. [address] [place] [address]. tel:[phone] OFFICE/OUTPA TIENT VISIT, [facility], [address] [place] [address], tel:[phone] Almo SORE throat (chief complaint) Contact With And (suspected) Exposure To COVID-19Pain in throat 3 Michaelhanny Voss. [address] [place] [address], [facility], . tel:[phone] OFFICE/OUTPA TIENT VISIT, [facility], [address] [place] [address], tel:[phone] Almo COVID SYMPT (chief complaint) Contact With And (suspected) Exposure To COVID-19 1 Hugh Bettencourt. [address] [place] [address], [facility], . tel:[phone] OFFICE/OUTPA TIENT VISIT, [facility], [address] [place] [address], [facility], tel:[phone] Almo COUGH (chief complaint) Contact With And (suspected) Exposure To COVID-19Respi ratory infectionPers istent shortness of breath after COVID-19 1 Conrad Gilbert. [address] [place], [place], [facility], . tel:[phone] OFFICE/OUTPA TIENT VISIT, [facility], [address] [place] [address], [facility], tel:[phone] Almo Cough (chief complaint) Encounter For Screening For Covid-19Chron ic sinusitis, unspecifiedCo ugh 1 Martha Lance. [address] [place] [address], [facility], . tel:[phone] OFFICE/OUTPA TIENT VISIT, [facility], [address] [place] [address], [facility], tel:[phone] Almo COUGH (chief complaint) Cough with fever 0 Hugh Bettencourt. [address] [place] [address], [facility], . tel:[phone] OFFICE/OUTPA TIENT VISIT, [facility], [address] [place] [address], [facility], tel:[phone] Almo COUGH (chief complaint) Acute sinusitis, unspecified 0 Calos Hurd. [address] [place], [place], [facility], [place]. tel:[phone] OFFICE/OUTPA TIENT VISIT, [facility], [address] [place] [address], [facility], tel:[phone] Almo COUGH (chief complaint) Unspecified acute lower respiratory infectionSlee p troubleDaytim e sleepiness Raoul-1 4-202 0 Ant Kristen. [address] [place] [address], [facility], . [phone] [facility], [address] [place] [address], [facility], tel:[phone] [facility] No Information 9 Arnold Patel. [address] [place] [address], [address] [place] [address]. tel:[phone] OFFICE/OUTPA TIENT VISIT, [facility], [address] [place] [address], [facility], tel: [phone] [facility] CHECK UP (chief complaint)W shane. (chief complaint) Encounter for adult health maintenance exam w/ abnormal findingsChron ic sinusitis, unspecifiedIn somnia, unspecified typeEncounter for prostate cancer screeningEnco unter for screening for malignant neoplasm of colonEncounte r for screening for cardiovascula r disordersEnco unter for screening for diabetes mellitusVentr al hernia without obstruction or gangrene 9 Néstor Valentin. [address] [place] [address], [facility], . [phone] OFFICE/OUTPA TIENT VISIT, [facility], [address] [place] [address], [facility], tel:[phone] Almo COUGH (chief complaint) Acute sinusitis, unspecifiedCo [facility] 9 Hugh Bettencourt. [address] [place] [address], [facility], . [phone] OFFICE/OUTPA TIENT VISIT, [facility], [address] [place] [address], [facility], tel:[phone] Almo CONGESTED (chief complaint)S ORE THROAT (chief complaint) Acute sinusitis, unspecified 7 No Information OFFICE/OUTPA TIENT VISIT, [facility], [address] [place] [address], [facility], tel:[phone] [facility] COLD SYMPTOMS (chief complaint)c ough/ nasal congestion/ post nasal drip (chief complaint) Chronic sinusitis, unspecified Dec-0 9-201 6 Arnold Abduli. [address] [place] [address], [facility], . tel: [phone] [facility], [address] [place] [address], [facility], tel: [phone] [facility] Chronic sinusitis, unspecified Serafin-0 6-201 6 [facility]. [address] [place] [address], [facility], . tel: [phone] OFFICE/OUTPA TIENT VISIT, [facility], [address] [place] [address], [facility], tel:[phone] [facility] Cold symptoms (chief complaint) Acute upper respiratory infection, unspecified May- 6 Arnold Abduli. [address] [place] [address], [facility], . tel: [phone] OFFICE/OUTPA TIENT VISIT, [facility], [address] [place] [address], [facility], tel:[phone] [facility] congestion (chief complaint) Acute sinusitis, unspecified Mar- 6 [facility]. [address] [place] [address], [facility], . tel: [phone] OFFICE/OUTPA TIENT VISIT, [facility], [address] [place] [address], [facility], tel: [phone] Almo Sinus symptoms (acute) (chief complaint) Acute sinusitis, unspecified 201 6 [facility]. [address] [place] [address], [facility], . tel: [phone] OFFICE/OUTPA TIENT VISIT, [facility], [address] [place] [address], [facility], tel: [phone] Almo UPPER ABDOMIN PAIN (chief complaint)F EVER (chief complaint)P AIN CREEPS UP TO THE BACK SIDE (chief complaint) Abdominal painNausea Sep-0 5-201 5 Ant Kristen. [address] [place] [address], [facility], [place]. [phone] OFFICE/OUTPA TIENT VISIT, [facility], [address] [place] [address], [facility], tel: [phone] Almo chest congestion (chief complaint)s ore throat (chief complaint) URI Apr- 5 Ant Kristen. [address] [place] [address], [facility], . tel:[phone] [facility] [address] [place] [address], [facility], tel:[phone] [facility] New patient (chief complaint) InsomniaNeuro pathyPeriodic health assessment, general screening, adultElevated BP 4 Néstor Valentin. [address] [place] [address], [facility], [place]. tel:[phone] Family History Family Member Type Diagnosis Age At Onset Father Problem (finding) malignant neop lasm of lung (Cause Of ) Paternal grandmother Problem (finding) malignant neoplasm of urinary bladder Payers Payer name Insurance type Covered alliance party ID Authortanaa tihanny(s) [facility] [id number] Social History Type Description Quantity Date Captured Comments Alcohol Use Details Unknown Caffeine Use Details Unknown Tobacco Use Status No Information Smoking Status No Information Sex Male Chief Complaint And Reason For Visit No Information Reason For Referral Reason For Referral No Information Plan Of Treatment Date Type Action Status Goal FOBT. Due on due Goal Influenza vaccine. Due on due Goal Zoster vaccine. Due on due Goal Lipid panel. Due on 024 due Goal Colonoscopy. Due on 023 due Goal Sigmoidoscopy. Due on due Goal Pneumococcal vac cine. Due on due Goal Tdap. Due on due Goal Td vaccine. Due on due Goal Depression scree curly. Due on due Goal CT-Colonography. Due on due Goal FIT. Due on due Goal FIT-DNA. Due on due Goal Hepatitis C scre ening. Due on due Goal Unhealthy drug u se screening. Due on due Goal Zoster vaccine ( ). Due on due Goal Influenza vaccine. Due on due Goal Zoster vaccine. Due on due Goal FIT-DNA. Due on due Goal FOBT. Due on due Goal Pneumococcal vac cine. Due on due Goal Td vaccine. Due on due Goal Sigmoidoscopy. Due on due Goal Unhealthy drug u se screening. Due on due Goal CT-Colonography. Due on due Goal FIT. Due on due Goal Lipid panel. Due on due Goal Zoster vaccine ( 1st). Due on due Goal Hepatitis C scre ening. Due on due Goal Tdap. Due on due Goal Depression scree curly. Due on due Goal Colonoscopy. Due on 023 due Goal Td vaccine. Due on due Goal FOBT. Due on due Goal Lipid panel. Due on due Goal Zoster vaccine. Due on due Goal Colonoscopy. Due on due Goal Sigmoidoscopy. Due on due Goal Influenza vaccine. Due on due Goal Depression scree curly. Due on due Goal Tdap. Due on due Goal Td vaccine. Due on due Goal FOBT. Due on due Goal Lipid panel. Due on due Goal Colonoscopy. Due on due Goal Zoster vaccine. Due on due Goal Sigmoidoscopy. Due on due Goal Depression scree curly. Due on due Goal Influenza vaccine. Due on due Goal Tdap. Due on due Goal Td vaccine. Due on due Goal Depression scree curly. Due on due Goal Zoster vaccine. Due on due Goal Sigmoidoscopy. Due on due Goal Tdap. Due on due Goal Influenza vaccine. Due on due Goal FOBT. Due on due Goal Lipid panel. Due on due Goal Colonoscopy. Due on due Referral Referred To: Graciela Bennett [address] [place], [address] [phone] Ordered: Referrals: Allopathic & Osteopathic Physicians : Internal Medicine : Critical Care Medicine. Graciela Bennett. Evaluate and treat Appointment date/timeframe: 11/07/2020 ordered Referral Ordered: X-RAY EXAM CHEST 2 VIEWS ordered Patient Education amoxicillin 87 5 mg-potassium clavulanate 125 mg tablet completed Patient Education Shortness of Breath: Ca re Instructions completed Patient Education codeine 10 mg-guaifenes in 100 mg/5 mL~ completed Patient Education Sinusitis: After Your V isit completed Patient Education Pneumonia: After Your V isit completed Patient Education doxycycline monohydrate 100 mg tablet completed Future Order: Lab Order CBC W/ D iff ([id number]), Sent on: Sent Future Order: Lab Order BMP ([id number]), Se nt on: Sent History Of Present Illness Encounter Date Complaint History Of Prese nt Illness Comments: Deric is a 67-year old male who presents to the clinic today with sore throat. Symptom onset was 4 days ago. He is complaining of sore throat, chills, cough, fatigue, fever, headache, diarrhea. Maximum temperature was 99.8. He has been taking Motrin with relief of symptoms. He states that he was seen for cough, wheezing on 12/13/2022 and was prescribed prednisone, azithromycin. He noted improvement after taking medications. He denies any known ill contacts. He offers no other concerns or complaints at this time. SORE throat Onset: 4 Days. T he severity of the problem is mild. The problem has worsened. The symptoms are persistent. Symptoms are not associated with exposure to strep and sick family member. The patient denies aggravating factors. Symptoms are relieved by MOTRIN. Associated symptoms include chills/rigors, cough, fatigue, fever, headache and pharyngitis. Pertinent negatives include dyspnea, facial pain, hemoptysis, myalgia, nasal congestion, otalgia, postnasal drainage, rash, rhinitis, sinus pressure, sputum, tooth pain or wheezing. Additional information: DEC 13- ANTIBIOTIC FOR COUGH AND WHEEZING & PREDNISONE/Z-LISA. COVID SYMPT (comments) As stated . It is noted that patient has had multiple visits for the same complaints. See previous office notes. His last visit was 09/24/20 and he had a chest xray which was negative for any acute abnormality. He was referred to Pulmonology and has an upcoming appointment on 11/07/20. He has had no fever, shortness of breath, or chest pain. Patient reports a history of allergies, for which he takes injections. His most recent symptoms began after mowing the yard. He reports he had COVID-19 11/2019 and was fully vaccinated 04/2020. Patient states he was at [facility] this past week receiving a CT of the chest with contrast, and states his CT was read as normal. COVID SYMPT The symptoms beg an 3 days ago. Pt presents today for a COVID test. Pt is complaining of headache, runny nose, dry cough and just not feeling right. Pt has been vaccinated. Pt was in [facility] twice last week and thinks he might of caught some type of sickness. COUGH Onset: 3 months ago. The patient describes the cough as productive (of yellow sputum). There are no aggravating factors. Associated symptoms include cough, dyspnea and wheezing. Additional information: states he was given medication last time her was here on 09/08 which helped his cough for a few days. states after it came back and he now has SOB and coughing fits with yellow sputum. states when he starts to talk he often begins to cough more and loses his breath. COUGH (comments) Pt presents to the clinic with complaints of chronic SOB since having COVID in Nov. PT states that the past couple of months the sob and cough has worsened. Pt states that he has been fully vaccinated since April. Pt states that he has not been right since having covid and the cough is also getting worse. He states that he is now coughing up a yellow sputum. Pt denies fever, chills, but states fatigue, sob, wheezing. Pt states that he has tried inhalers with no improvement. Cough Onset: 3 days ag o. The patient describes the cough as dry, hacking, moist and productive (of yellow sputum). It occurs persistently. The problem has become gradually worse. Symptoms are aggravated by allergens. Relieving factors include antihistamines and bronchodilators. Associated symptoms include cough, hoarseness and wheezing. Pertinent negatives include fever, rhinorrhea and sore throat. The patient has a history of allergies. Additional information: Pt had COVID in December. Pt has had both vaccines. Pt states some day it is a dry cough and some days it is a wet cough. Pt takes daily allergy medications and every 4 weeks he takes 2 shots of an allergy injection. Cough (comments) Patient has a l mark-standing history of seasonal allergies and is under the care of an kicking machine operator in [place], for which he has an appt scheduled for follow-up in October. Last spring/summer the patient had a similar experience, persistent cough and allergy symptoms. He currently takes flonase daily, zyrtec or claritin daily, and every 4 weeks gives himself allergy injections. He had COVID last Fall and was fully vaccinated against COVID this past spring. His coughing fits cause him to be SOB, but his is otherwise able to perform his ADLs and work without shortness of breath. He states that his sputum is occasionally yellow and this is worse in the morning. His nasal drainage is clear. Denies fever, chest pain, or lower extremity edema. COUGH Onset: 5 months ago. Severity: 6. The patient describes the cough as hacking and non-productive. Associated symptoms include cough, dyspnea, fever, post-nasal drainage and wheezing. Pertinent negatives include chills, fatigue, hoarseness, nasal congestion, night sweats and sore throat. COUGH (comments) Emma Robert pre sents with c/o productive cough with yellow sputum for the past 5 months. He was treated for these symptoms in February with Doxycycline, April with Augmentin, and May 26 with Azithromycin. He states his symptoms have never improved. Today, he presents with an elevated temp and a decreased O2 saturation. It is noted in his history that his trend has been 95% or higher. He has had mild shortness of breath, which he states improves with the use of a PRN proair inhaler he was given previously for this. He denies chest pain, but does have c/o fullness in his chest, as though he can not cough up what is there. 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 The patient has never been a smoker. He does have a history of allergic rhinitis and uses allergy injections as well as Flonase to manage his symptoms. He denies any nasal congestion, PND, headaches, or sinus pain/ pressure. COUGH Onset: 2 months ago. The patient describes the cough as productive (of green sputum). The problem has become gradually worse. Associated symptoms include cough, fatigue, nasal congestion, pleuritic pain, post-nasal drainage, sinus pressure and wheezing. Pertinent negatives include chills, fever and sore throat. The patient has a history of allergies. Additional information: Pt was seen in February for the same illness which has yet to go away. Pt states the last antibiotic took away his taste and smell so he would like a different one if prescribed. Pt fell on bed of a truck which was wet so he slipped. He now has rib pain on the right side that hurts more from cough. COUGH (comments) He had a flu sh ot this year. COUGH Onset: 5 weeks a go. The patient describes the cough as hacking and productive (of green sputum). Symptoms are aggravated by lying down. There are no relieving factors. Associated symptoms include chills, cough, fatigue, fever, hoarseness, nasal congestion, post-nasal drainage, sore throat, wheezing and chest congestion. Pertinent negatives include dyspnea and dyspnea on exertion. Additional information: Pt states his chest is really congested. Pt states he has trouble sleeping. He wants something for his sleep. Dr Palm stopped his Ambien when he started seeing him. I advised him this is a PCP issue and needs further evaluation. I am not going to prescribe anything today. Wellness. Diet, exercise a nd activity stated to be pretty good. Colon cancer screening . PSA screening. He wears seatbelt while in a vehicle. He is a non smoker and occasionally consumes alcohol. Explained the importance of avoidance of smoking, chewing tobacco, illicit drug use. Discussed safety at home. Discussed avoidance of unhealthy habits and accident prevention. Discussed the benefit of routine eye exam ( 3 years ago)and dental follow up (every 6 mos). Patients PMHX only involves some coping difficulties in the past as well as ENT visit for chronic sinusitis. He does have some difficulty with sleeping which he attributes to a very hectic work schedule. His weight is not quite ideal. Recommended proper weight management, proper diet and exercise. His family history includes lung cancer of his father and CAD on his mother. CHECK UP Is turning 63 on Saturday and has never had any tests done, here for a check up. COUGH Onset: 3 weeks a go. The patient describes the cough as barking, hacking, moist, persistent and productive (of green sputum). It occurs persistently. The problem has become gradually worse. Symptoms are aggravated by lying down. There are no relieving factors. Associated symptoms include chills, cough, fatigue, hoarseness, nasal congestion, post-nasal drainage and sinus pressure. Pertinent negatives include dyspnea, dyspnea on exertion, epistaxis, fever, heartburn, hemoptysis, night sweats, pleuritic pain, rhinitis, rhinorrhea, sore throat, weight loss and wheezing. CONGESTED SORE THROAT Onset: 1 Week. T he problem is severe. The problem has worsened. The symptoms are persistent. Symptoms are not associated with sick family member. Aggravating factors include lying down. The patient denies relieving factors. Associated symptoms include chills/rigors, cough (hacking), dyspnea, fatigue, fever, headache, otalgia and pharyngitis. COLD SYMPTOMS cough/ nasal congest ion/ post nasal drip Pt here to see Provider for head congestion, cough, post nasal drainage, and ears plugged. Cold symptoms Onset: 1 week ag o. The patient describes the cough as hacking and productive (of green sputum). Associated symptoms include cough, fatigue, post-nasal drainage, rhinorrhea and sore throat. Additional information: Pt has been taking benadryl at night and cetrizine with no relief. Pt is also using Flonase nasal spray. Pt is unable to sleep at night. Throat extremely sore. congestion Pt here to see D r for congestion, cough with exp of green sputum, rhinorrhea, ears plugged, fever at times, post nasal drainage and slight sorethroat. Symptoms started christina 8 days ago and getting worse. Had similar episode and was seen in [facility] and given antibiotic. Ears has been plugged since previous episode.Would like to have a screening colonoscopy soon. He will check with his insurance at first. Sinus symptoms (acute) Onset: 6 Weeks. The severity of the problem is moderate. The problem has worsened. The symptoms are constant. Pertinent/initial symptoms include sinus congestion, sinus pain and sinus pressure. Symptoms are associated with recurrent sinus infections. Symptoms are not associated with tobacco use. Denies aggravating factors. Denies relieving factors. Associated symptoms include cough, headache, nasal drainage, otalgia, postnasal drainage and sinus pressure. Pertinent negatives include fever, sore throat or tooth pain. UPPER ABDOMIN PAIN Pt presents t [facility] with complaints of upper abdomen pain. States it wraps around to his back and through his ribs. Also states he has a loss of appetite. 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 The status is resolved. He denies aggravating factors. Relieving factors include He denies relieving factors.. Associated symptoms include nausea. PAIN CREEPS UP TO THE BACK SIDE Pt states Saturday he started getting pain in his abdomen and felt like he had a fever. States he was very nauseated and felt like he had heartburn. chest congestion The symptoms be dennis 3 weeks ago and generally lasts 3 Weeks. The symptoms are reported as being moderate. Patient complains of congestion in head and chest. Also states hsi throat is trying to get sore. sore throat Onset: 3 Days. T he severity of the problem is moderate. The problem has worsened. The symptoms are persistent. Additional information: Also the patietn has a cough. New patient Face is flushed, pt. 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 Was started on Tramadol and Naproxen for foot pain. From ball of the feet to the toes, bilateral. Has sen a podiatris who suggested a nerve conduction study. thought process being neropathy. He apparently has foot neuroma as well but this apparently is not causing the pain he is experiencing. Patient believes that it is the neuroma causing his pain. Functional Status Date Functional Assessmen t No Information Instructions Date Instruction Additional Infor crys Rest. Increase fluid s. Warm salt water gargles. Tea with honey. Humidifier. Take antibiotic as prescribed. Change toothbrush 48 hours after starting antibiotic. Follow up with PCP if no improvement. Return to clinic as needed. Related to Pain in throat Follow up with Berna farias for further management of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
--- NOTE | 2024-06-08 16:40 | WPDSIXMINUTE ---
Six Minute Walk Procedure Procedure Performed Pulmonary Stress Test (6 min walk) Six Minute Walk Six Minute Walk: This is a 6 minute walk test. The test was performed and interpreted in accordance with the 2014 ERS/ATS task force guidelines. Findings: The patient's resting room air oxygen saturation measured by pulse oximetry was 98%, the heart rate was 68 bpm, and the modified Dee dyspnea score was 0. Patient ambulated for 304 meters and oxygen saturation remained 95 to 97%. At the end of the study the heart rate was 85 bpm and the modified Dee dyspnea score was 1. The patient did not qualify for supplemental oxygen at rest or with ambulation. There are no prior studies for comparison.
--- NOTE | 2024-06-08 16:41 | WPDPFTINT ---
PFT Procedure Performed PFT Procedure Performed Spirometry with Pre/Post Bronchodilator Diffusing Cap (DLCO) Flow Vol Loop PFT Interpretation This is a pulmonary function test with pre and post-bronchodilator spirometry, and diffusing capacity. The test was performed and results interpreted in accordance with the 2019 and 2005 ATS/ERS Task Force guidelines respectively using the Global Lung Function Initiative-2012 reference equations. Patient demonstrated good effort and cooperation. Reproducibility criteria were met. The quality of the pre bronchodilator spirometry maneuver was Grade A and post bronchodilator spirometry maneuver was Grade A. Of note, unable to complete plethysmography due to hardware malfunction. Patient felt very lightheaded with post spirometry and only able to obtain 1 acceptable maneuver. Findings: Spirometry: The contour the inspiratory and expiratory flow tracing are normal. The pre bronchodilator FVC is 3.64 L, 77% predicted. The pre bronchodilator FEV1 is 2.80 L, 78% predicted. The pre bronchodilator FEV1: FVC ratio 77%. The post bronchodilator FVC is 3.86 L, representing a 6% increase. The post bronchodilator FEV1 is 3.11 L, representing an 11% increase. The post bronchodilator FEV1: FVC ratio is 80%. Diffusing capacity: The diffusing capacity unadjusted for hemoglobin and carboxyhemoglobin is 21.7, 78% predicted. The diffusing capacity adjusted for alveolar volume is 4.43, 112% predicted. Impression: The spirometry is normal without evidence of an obstructive abnormality. There is no significant improvement after inhaling a single dose of albuterol. The lung volumes Could not be measured, therefore a restrictive abnormality cannot be excluded. The diffusing capacity is normal. There are no prior studies for comparison
== END 2024-06-08 10:12 | disposition home or self-care (01) ==
LOC: ANHPFT 10:14
PROVIDERS: Visit Provider Internal Medicine Critical Care Medicine
DX: R06.02 Shortness of breath (principal)
CPT/HCPCS: 94060; 94375; 94618; 94729